=== PATIENT | female | born 1960 | race Caucasian/White ===

== ENCOUNTER → 2017-05-10 15:05 | Outpatient (CLI) | payer BC ==
[2015-06-24 18:44] VITALS: BMI 26.6
[~2017-05-10 15:05] MED LIST: BACTRIM DS TABL1 TAB PO; EXCEDRIN EXTRA1 TAB PO; HCTZ25 MG PO; MULTIPLE VITAMI1 TA1 PO; PREMARIN0.625 MG PO
== END | disposition home or self-care (01) ==
LOC: D.MAMMO 11:15
DX: Z12.31 Encounter for screening mammogram for malignant neoplasm of breast (principal)

== ENCOUNTER → 2017-05-27 16:39 | Outpatient (CLI) | payer BC ==
[2015-06-24 18:44] VITALS: BMI 26.6
== END | disposition home or self-care (01) ==
LOC: D.MAMMO 10:00
DX: R92.8 Other abnormal and inconclusive findings on diagnostic imaging of breast (principal)

== ENCOUNTER 2017-11-04 07:30 | Day surgery (SDC) | payer BC ==
[~2017-11-04] VITALS: Ht 162.6 cm; Wt 96.6 kg
--- NOTE | ~2017-11-04 | OP ---
PATIENT NAME: MADHURI MARLEY MEDICAL RECORD: [id number] :56 LOCATION:D.OPS ADMISSION DATE: SURGEON: EDUARDO DUKES MD DATE OF OPERATION: 11/04/2017 PREOPERATIVE DIAGNOSIS: T5 compression fracture secondary to tumor and T5 epidural mass. PROCEDURE: T5 laminectomy for resection of epidural tumor and mass and T5 kyphoplasty. SURGEON: Eduardo Dukes MD PLACE OF SERVICE: [facility]. DESCRIPTION OF TECHNIQUE: After induction of general endotracheal anesthesia, the patient was rolled prone on chest and hip rolls. The thoracic spine was prepped and draped in usual sterile fashion. Fluoroscopic x-ray and spinal needle localized the T5 vertebral body. Next, a skin incision was carried out from the spinous process of T5 to T6, spinous processes and lamina of T5 were exposed in subperiosteal manner on the left side. Flow was confirmed with fluoroscopic x-ray. A Midas Manfred drill was used to perform a laminectomy at the T5 on the left. Portions of pedicle were also removed and then there was obvious epidural mass sent to pathology for diagnosis. This was removed in a piecemeal fashion. The vertebral body was entered and the bone was quite soft and obviously pathologic. Multiple specimens were sent to pathology for diagnosis and spinal canal was decompressed in performance of this, a Jamshidi needle was advanced in the body of T5. A balloon was inflated under fluoroscopic control. The balloon was deflated and the void created was back filled with methyl methacrylate bone cement. Good position of the cement was confirmed by AP and lateral fluoroscopic x-ray. Meticulous hemostasis was maintained throughout the wound. The wound was irrigated with copious amounts of Ancef irrigant solution. The fascia was closed with 2-0 Vicryl suture, the subdermal layer was closed with 3-0 Vicryl suture. The skin was closed with jo-ann. A sterile dressing was applied to the wound. The patient was awakened in good condition and taken to recovery. All counts were reported as correct. Estimated blood loss was minimal. TRANSINT:[id number] Voice Confirmation ID: [id number] DOCUMENT ID: [id number] EDUARDO DUKES MD at 0832 CC: [id number] DICTATION DATE: 11/04/17 3449 DIRECTOR EDUCATIONAL RADIO: 11/04/17 1409 [facility] 11/05/17 [facility] [address] [place] [address]
[~2017-11-04 07:30] MED LIST changes: +ADIPEX-P37.5 MG PO; +ARMOUR THYROID30 MG PO; +BUTALB-APAP-CA1 EACH PO; +EFFEXOR XR150 MG PO; +MAG-OX 400 MG400 MG PO; +MAG-OXIDE400 MG PO; +MICARDIS HCT 401 TAB PO
[2017-11-04] MEDS ORDERED: TYLENOL #4 W/CO1 TAB PO (08:08)
[2017-11-04 08:10] VITALS: BP 128/78; Ht 162.6 cm; Wt 96.6 kg
[2017-11-04 08:11] LABS: HEMATOCRIT 41.7 % (36.0-48.0); HEMOGLOBIN 13.7 g/dL (12-16); MCH 29.1 pg (26.0-34.0); MCHC 32.9 g/dL (31.0-37.0); MCV 88.5 fL (80.0-100.0); RBC 4.71 10x6/uL (4.00-5.40); RDW 14.7 % (11.5-14.5); WBC 10.8 10x3/uL (4.8-10.8)
[2017-11-04 23:02] VITALS: BP 120/72
[2017-11-05 04:32] VITALS: BP 94/55
[2017-11-05 10:51] VITALS: BP 117/69
[2017-11-05 15:10] VITALS: BP 127/62
[2017-12-02] MEDS ORDERED: ZANAFLEX4 MG PO (13:59)
== END 2017-11-05 15:13 | disposition home or self-care (01) ==
LOC: OBSVTIME → D.SDCHOLD 07:30 → D.OPS 07:30 → D.SDCHOLD 07:30 → D.MS 07:30 → OBSVTIME 07:30 → EDSTATUS 09:00 → D.SDCHOLD 09:00 → D.MS 17:44 → D.SDCHOLD 17:44 → D.OPS 11-05 15:13 → D.MS 11-05 15:13
PROVIDERS: Anesthesiology
DX: M84.68XA Pathological fracture in other disease, other site, initial encounter for fracture (principal); D49.2 Neoplasm of unspecified behavior of bone, soft tissue, and skin

== ENCOUNTER → 2017-11-17 16:39 | Outpatient (CLI) | payer BC ==
[2017-11-04 08:10] VITALS: BMI 36.6
[~2017-11-17 16:39] MED LIST changes: +ATIVAN1 MG PO; +NEURONTIN800 MG PO; +NORCO 7.5/325 T1 TA1 PO; +TYLENOL #4 W/CO1 TAB PO; +ZANAFLEX4 MG PO
[2017-11-17 17:27] LABS: CREATININE - SERUM 1.1 mg/dL (0.6-1.3)
== END | disposition home or self-care (01) ==
LOC: D.CT 16:30
PROVIDERS: Urology
DX: C64.9 Malignant neoplasm of unspecified kidney, except renal pelvis (principal)

== ENCOUNTER → 2017-11-18 11:33 | Outpatient (CLI) | payer MEDICAID ==
[2017-11-04 08:10] VITALS: BMI 36.6
[2017-11-18 12:27] LABS: BILIRUBIN - DIRECT 0.07 mg/dL (0.00-0.30); BILIRUBIN - INDIRECT 0.14 mg/dL (0.00-1.00); BILIRUBIN - TOTAL 0.21 mg/dL (0.2-1.3); PROTEIN - SERUM 7.1 g/dL (6.4-8.2)
== END | disposition home or self-care (01) ==
LOC: D.LAB 11:33
PROVIDERS: Urology
DX: C64.9 Malignant neoplasm of unspecified kidney, except renal pelvis (principal)

== ENCOUNTER 2017-11-22 22:32 | Emergency (ER) | payer MEDICAID ==
[2017-11-04 08:10] VITALS: BMI 36.6
[~2017-11-22 22:32] MED LIST changes: -ATIVAN1 MG PO; -NEURONTIN800 MG PO; -NORCO 7.5/325 T1 TA1 PO; -ZANAFLEX4 MG PO
[2017-12-02] MEDS ORDERED: ZANAFLEX4 MG PO (13:59)
== END 2017-11-23 00:51 | disposition home or self-care (01) ==
LOC: D.ER 22:32
DX: M62.838 Other muscle spasm (principal); G89.18 Other acute postprocedural pain; I10 Essential (primary) hypertension

== ENCOUNTER 2017-12-05 05:35 | Inpatient (IN) | payer MEDICAID ==
[2017-12-02 14:49] LABS: BASOPHILS 0.3 % (0-2); EOSINOPHILS 3.3 % (0-7); HEMATOCRIT 35.2 % (36.0-48.0); HEMOGLOBIN 11.4 g/dL (12-16); IMMATURE GRANULOCYTES 0.2 % (0-5); LYMPHOCYTES 29.1 % (15-50); MCH 28.4 pg (26.0-34.0); MCHC 32.4 g/dL (31.0-37.0); MCV 87.8 fL (80.0-100.0); MONOCYTES 4.8 % (2-11); NEUTROPHILS 62.3 % (40-80); PLATELET COUNT 261 10x3/uL (130-400); RBC 4.01 10x6/uL (4.00-5.40); RDW 14.9 % (11.5-14.5); WBC 6.4 10x3/uL (4.8-10.8)
[2017-12-02 15:11] LABS: ANION GAP 13.7 mmol/L (8-16); CALCIUM 8.6 mg/dL (8.5-10.1); CARBON DIOXIDE 29.7 mmol/L (21.0-32.0); CREATININE - SERUM 1.1 mg/dL (0.6-1.3); POTASSIUM - SERUM 3.4 mmol/L (3.5-5.1)
[2017-12-02 15:27] LABS: APTT 38.3 SECONDS (22.8-39.4); INR 1.02 (0.85-1.17)
[~2017-12-05] VITALS: Ht 162.6 cm; Wt 101.6 kg
[2017-12-05] VITALS (13 sets, daily range): BP systolic 125–184; BP diastolic 54–112; BMI 38.3
--- NOTE | ~2017-12-05 | OP ---
PATIENT NAME: MADHURI MARLEY MEDICAL RECORD: [id number] :56 LOCATION:[facility] D.2310 ADMISSION DATE:12/05/17 SURGEON: CYNTHIA MCCALL MD DATE OF OPERATION: 12/05/2017 CO-SURGEONS: Dr. Cynthia Mccall and Dr. Cynthia Coburn. ANESTHESIA: General anesthesia by Dr. Grant Quan. PREOPERATIVE DIAGNOSIS: Right renal cancer 7 cm, stage T2a Nx M1 (stage IV). PROCEDURES: Laparoscopic hand-assisted right radical nephrectomy. SPECIMENS: Right kidney, adrenal and ureter. FINDINGS: Large right renal medial tumor, which displaced the inferior vena cava towards the opposite side and it was also adherent to the duodenum. BLOOD LOSS: 30 mL. CLINICAL HISTORY: This is a 57-year-old female, who is a smoker. She was initially seen by Dr. Dukes for a compression fracture at the T5 spinal level. 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 She was then referred to see me. I performed imaging on her and immediately we noted a large 7.3 cm right renal mass, which is medial and extends from the mid pole to lower pole. The mass displaces the inferior vena cava towards the opposite side. It also pushes the renal vein towards the cranial aspect of the kidney. No thrombus was seen in the renal vein or IVC. Liver function tests were normal. No particular lymphadenopathy was seen. She had a bone scan and the rest of the CT imaging did not show any other tumor nodules. Dr. Bernardo informs me that a PET scan showed only the lesions of the T5 spine, and the right kidney. Therefore, she may have renal cell carcinoma with a solitary metastasis. The life expectancy in that situation is actually better than with a widespread stage IV metastatic renal cell carcinoma. Life expectancy of stage IV renal cell carcinoma with multifocal metastasis is about 8% at 5 years. With resection of a primary and a solitary metastasis, the 5-year survival rate rises up towards 25%. The patient had a bowel prep the evening before. Due to the difficulty of the surgery, co-surgeons will be performing the surgery. The patient is allergic to PENICILLIN and she was given Levaquin 500 mg IV personal protection specialist to the OR. DESCRIPTION OF PROCEDURE: The patient was given induction of general anesthesia in supine position. A Dunne catheter was put to bag drainage. She was then turned towards the right lateral decubitus position with the right side up. She was maintained in this position on a beanbag. We made sure that all pressure points were well padded. A Robertson-type incision was marked out in the right lower quadrant of the abdomen at 7.5 cm in length. We made sure that the Gelport hand port would clear the iliac crest. A skin incision was then made and then the muscle splitting incision through the external oblique, internal oblique, and transversus abdominis was performed. We did not enter into the rectus muscle at all. Having gone into the peritoneum, we put the Gelport hand port device in. A 12-mm trocar was then placed through the Gelport and OPERATIVE REPORT [id number] MADHURI MARLEY insufflation of the pneumoperitoneum was performed using carbon dioxide. We placed a camera port, which is 12 mm just under the xiphoid process. Between the umbilicus and the camera port, we placed our working port, which was also 12-mm port. The patient had no adhesions to deal with. Using the Harmonic scalpel, we took down the lateral peritoneum along the line of Toldt. We then dissected some of the area between the cranial portion of the kidney and the undersurface of the liver. Here we had to put a Miller liver retractor through a separate incision just inferior to the costal margin on the lateral side of the patient's abdomen. This was used to retract the liver, so that we can get into the plane between the liver and the kidney. Moving medially, we identified the gallbladder. The peritoneum of the gallbladder was freed up from where it attached towards the kidney. Here, we then identified the duodenum and the inferior vena cava. The tumor actually overhangs the anterior surface of the inferior vena cava as well as the anterior surface of the duodenum. We had to retract the tumor laterally in order to get underneath it and then dissection was performed to free the duodenum away from the tumor and to kocherize the duodenum. The attachments to the inferior vena cava were also dissected with Metzenbaum scissors. Now heading from lateral towards medially, I dissected in the plane posterior to the kidney at its cranial surface and we identified the fat here, which was attaching the superior surface of the kidney to the undersurface of the duodenum. This was dissected bluntly using the fingers. We came across the adrenal gland medially. We used the Harmonic scalpel to free some of the superior surface of the adrenal gland. We identified also the adrenal vein going into the inferior vena cava. By continuing to dissect bluntly through from lateral to medial through the superior surface of the kidney, we made a continuous plane from the medial surface of the adrenal gland all the way to the lateral edge of the tissue. Here we were able to put an Endo-FELIPA 60 mm with a vascular load. By firing the vascular load, we completely freed the superior surface of the kidney. The adrenal gland continues to be part of the specimen. The adrenal vein was clipped multiple times, and then divided between clips using the Metzenbaum scissors. Going down to the lower pole, we identified the ureter. This was clipped multiple times and then the ureter was divided using Metzenbaum scissors. This left only the medial surface of the kidney attached to the inferior vena cava. Metzenbaum scissors were also used to divide the filmy adhesions between the inferior vena cava and the renal hilum. Finally, we had a clear shot through the medial surface of the kidney for the renal pedicle. The Endo-FELIPA 60 was placed with a vascular load and the renal pedicle was completely taken down. This freed the kidney specimen entirely. The Gelport hand port was uncovered by removing the hand port portion off leaving the ring in place. We were then able to completely remove the kidney and sent it to pathology in formalin. We then irrigated out the abdomen using normal saline. The irrigation fluid was drained out using a pool sucker. Putting the GelPort hand port back on and reestablishing pneumoperitoneum, we placed a sheet of Surgicel over the renal hilum stump. No bleeding was seen at all. The Gelport hand port device was then completely removed as well as the trocars. Closure of the muscle splitting incision was performed using looped PDS in 2 layers. The first layer took the transversus abdominis and the internal oblique. The second layer took the external oblique. Latia were used to close all of the skin incisions. Dressings were applied and the patient was then brought to the recovery room. She will be held in the intensive care unit for overnight and if she is stable, we will transfer her to the floor tomorrow. OPERATIVE REPORT [id number] MARLEYMADHURI SIMPSON TRANSINT:[id number] Voice Confirmation ID: [id number] DOCUMENT ID: [id number] CYNTHIA MCCALL MD at 1723 CC: [id number] DICTATION DATE: 12/05/17 1153 HYDRAULIC MECHANIC: 12/05/17 1437 ADM IN [place] [id number] [place] [id number]
--- NOTE | ~2017-12-05 | OP ---
PATIENT NAME: MADHURI MARELY MEDICAL RECORD: [id number] :56 LOCATION:D.MS [facility] ADMISSION DATE:12/05/17 SURGEON: CYNTHIA VARGAS MD DATE OF OPERATION: 12/05/2017 This is a cosurgeon case. Please see Dr. James's note. This was a radical nephrectomy. He was the urologist. I was the general surgeon. Due to the complexity of the case, 2 attending surgeons were necessary to participate in the case. My involvement in the case included the initial skin incision, assistance with dissection down to the external oblique aponeurosis, incision of the external oblique aponeurosis, separation of the muscle fibers, and then separation of the internal oblique and transversus abdominis muscle layers. Insertion of the Papo retractor. I ran the camera some of the time. I incised along the right white line of Toldt. I folded the right colon medially. I kocherized the duodenum. I inserted the liver retractor. I incised the retroperitoneal reflection over the inferior vena cava. I fired the stapler several times over the vascular structures. I assisted with removal of the specimen. I irrigated and aspirated. I assisted with closure of the fascia with a running #1 PDS suture. I assisted with staple closure of the skin. TRANSINT:[id number] Voice Confirmation ID: [id number] DOCUMENT ID: [id number] CYNTHIA VARGAS MD at 1518 CC: [id number] DICTATION DATE: 12/05/17 1151 RETAIL RESET MERCHANDISER: 12/05/17 1322 DIS IN 12/08/17 [place] [id number] [place] [address]
[~2017-12-05 05:35] MED LIST changes: +ZANAFLEX4 MG PO
[2017-12-06] VITALS (17 sets, daily range): BP systolic 101–156; BP diastolic 65–88; Ht 162.6 cm; Wt 101.6 kg
[2017-12-06 10:45] LABS: ALBUMIN 2.7 g/dL (3.4-5.0); BILIRUBIN - TOTAL 0.54 mg/dL (0.2-1.3); CALCIUM 8.5 mg/dL (8.5-10.1); CARBON DIOXIDE 24.8 mmol/L (21.0-32.0); CREATININE - SERUM 1.4 mg/dL (0.6-1.3); POTASSIUM - SERUM 3.8 mmol/L (3.5-5.1); PROTEIN - SERUM 6.1 g/dL (6.4-8.2)
[2017-12-06 10:59] LABS: BASOPHILS 0.2 % (0-2); EOSINOPHILS 0.2 % (0-7); HEMATOCRIT 33.1 % (36.0-48.0); HEMOGLOBIN 10.6 g/dL (12-16); IMMATURE GRANULOCYTES 0.3 % (0-5); LYMPHOCYTES 18.5 % (15-50); MCH 27.8 pg (26.0-34.0); MCV 86.9 fL (80.0-100.0); MEAN PLATELET VOLUME 8.4 fL (7.4-10.4); MONOCYTES 8.7 % (2-11); NEUTROPHILS 72.1 % (40-80); PLATELET COUNT 256 10x3/uL (130-400); RBC 3.81 10x6/uL (4.00-5.40); RDW 15.3 % (11.5-14.5); WBC 11.9 10x3/uL (4.8-10.8)
[2017-12-07 04:25] VITALS: BP 142/85
[2017-12-07 08:39] VITALS: BP 150/75
[2017-12-07 09:15] LABS: ALBUMIN 2.6 g/dL (3.4-5.0); ANION GAP 13.3 mmol/L (8-16); BILIRUBIN - TOTAL 0.56 mg/dL (0.2-1.3); CALCIUM 8.4 mg/dL (8.5-10.1); CARBON DIOXIDE 26.3 mmol/L (21.0-32.0); CREATININE - SERUM 1.3 mg/dL (0.6-1.3); POTASSIUM - SERUM 3.6 mmol/L (3.5-5.1); PROTEIN - SERUM 6.6 g/dL (6.4-8.2)
[2017-12-07 12:45] VITALS: BP 140/80
[2017-12-07 17:11] VITALS: BP 142/85
[2017-12-07 20:00] VITALS: BP 158/88
[2017-12-08] VITALS: BP 157/87
[2017-12-08 04:00] VITALS: BP 144/84
[2017-12-08 09:01] LABS: ALBUMIN 2.8 g/dL (3.4-5.0); ANION GAP 13.6 mmol/L (8-16); BILIRUBIN - TOTAL 0.58 mg/dL (0.2-1.3); CALCIUM 8.9 mg/dL (8.5-10.1); CARBON DIOXIDE 27.1 mmol/L (21.0-32.0); CREATININE - SERUM 1.2 mg/dL (0.6-1.3); POTASSIUM - SERUM 3.7 mmol/L (3.5-5.1); PROTEIN - SERUM 6.9 g/dL (6.4-8.2)
[2017-12-08 09:11] VITALS: BP 146/80
[2017-12-08] MEDS ORDERED: NORCO 7.5/325 T1 TA1 PO (09:35)
[2017-12-08 13:21] VITALS: BP 152/76
[2017-12-08 18:38] VITALS: BP 161/92
== END 2017-12-08 18:30 | disposition home or self-care (01) | DRG 657 ==
LOC: D.ICU 05:35 → D.MS 05:35 → D.SDCHOLD 05:35 → D.ICU 12:34 → D.MS 12-06 22:15
PROVIDERS: Anesthesiology; Internal Medicine Hematology & Oncology; Urology
PROC: 0TT04ZZ Resection of Right Kidney, Percutaneous Endoscopic Approach (ICD-10-PCS; principal; 2017-12-05 07:30)
DX: C64.1 Malignant neoplasm of right kidney, except renal pelvis (principal); C79.51 Secondary malignant neoplasm of bone; I10 Essential (primary) hypertension; F17.200 Nicotine dependence, unspecified, uncomplicated

== ENCOUNTER 2017-12-13 12:24 | Inpatient (IN) | payer MEDICAID ==
[~2017-12-13] VITALS: Ht 162.6 cm; Wt 105.9 kg
--- NOTE | ~2017-12-13 | OP ---
PATIENT NAME: MADHURI MARLEY MEDICAL RECORD: [id number] :56 LOCATION:[facility] D.2313 ADMISSION DATE:12/13/17 SURGEON: BERTIN MCCALL MD DATE OF OPERATION: 12/16/2017 SURGEON: Bertin Mccall MD ANESTHESIA: General anesthesia by Rossy Herr CRNA. PROCEDURE: Evacuation of wound hematoma, placement of a wound VAC. SPECIMENS: Culture swabs, Gram stain, aerobic and anaerobic. PREOPERATIVE DIAGNOSIS: Wound hematoma. FINDINGS: Fascia is intact. Hematoma and subcutaneous wound cavity. ESTIMATED BLOOD LOSS: None. CLINICAL HISTORY: This is a 57-year-old female with metastatic renal cell carcinoma, she was found to have a compression fracture of the T5 vertebral body. Dr. Dukes performed compression stabilization. Specimens from the bone marrow showed renal cell carcinoma. She then had imaging, which showed a very large right renal cell carcinoma. Recently, she had a right radical nephrectomy via hand-assisted laparoscopic approach. A few days afterwards, she came to the Emergency Room with acute paraplegia. Imaging shows soft tissue masses at the T5 level compressing the spinal cord. DESCRIPTION OF PROCEDURE: Today, she had a T5 corpectomy. While she was being turned, it was noted that at the hand port site she had a lot of serous fluid draining. Therefore, I waited until the corpectomy surgery was finished and then I would examine her hand port site incision to check for fascial dehiscence. Dr. Dukes has finished his procedure. The patient was then maintained under general anesthetic. She already had IV antibiotics given to her. She was turned into the supine position from her prone position. The wound was prepped and draped. I noted that she has candidal yeast infections in the groins and this may have contributed to the hand site infection. The wound itself appeared to be clean. There was serous fluid seeping out of the wound. When she was prepped and draped, we opened up the incision. Granulating tissue was seen along the bales of the subcutaneous tissue. We obtained culture swabs. A large hematoma was evacuated using the Yankauer sucker. We then irrigated out the wound and then found an intact fascial closure. The wound cavity was measured out at 12 x 5 cm. A silver sponge was cut to the size for the wound VAC. It was inserted into the wound. Dressings were then applied and then the wound VAC was set to 125 mmHg continuous suction. The patient will be on it going into the intensive care unit. I will have the wound care team manage the wound VAC. TRANSINT:[id number] Voice Confirmation ID: [id number] DOCUMENT ID: [id number] OPERATIVE REPORT [id number] MADHURI MARLEY ROBERT S MD at 1725 CC: [id number] DICTATION DATE: 12/16/17 1613 INVESTMENT ADVISOR: 12/16/17 1650 ADM IN [place] [id number] [place] [address]
[~2017-12-13 12:24] MED LIST changes: +NORCO 7.5/325 T1 TA1 PO
[2017-12-13 13:11] LABS: BASOPHILS 0.1 % (0-2); EOSINOPHILS 0.1 % (0-7); HEMATOCRIT 35.5 % (36.0-48.0); HEMOGLOBIN 11.7 g/dL (12-16); IMMATURE GRANULOCYTES 1.1 % (0-5); LYMPHOCYTES 22.7 % (15-50); MCH 28.3 pg (26.0-34.0); MEAN PLATELET VOLUME 8.7 fL (7.4-10.4); MONOCYTES 6.8 % (2-11); NEUTROPHILS 69.2 % (40-80); RBC 4.13 10x6/uL (4.00-5.40); RDW 14.6 % (11.5-14.5); WBC 18.3 10x3/uL (4.8-10.8)
[2017-12-13 13:12] LABS: PLATELET COUNT 415 10x3/uL (130-400)
[2017-12-13 13:36] LABS: ALBUMIN 3.2 g/dL (3.4-5.0); ANION GAP 10.3 mmol/L (8-16); BILIRUBIN - TOTAL 0.3 mg/dL (0.2-1.3); CALCIUM 9.1 mg/dL (8.5-10.1); CARBON DIOXIDE 29.4 mmol/L (21.0-32.0); CREATININE - SERUM 1.2 mg/dL (0.6-1.3); POTASSIUM - SERUM 3.7 mmol/L (3.5-5.1); PROTEIN - SERUM 7.4 g/dL (6.4-8.2)
[2017-12-13 20:44] VITALS: BP 142/86
[2017-12-14] VITALS (7 sets, daily range): BP systolic 92–156; BP diastolic 60–92; BMI 35.9
[2017-12-14] MEDS ORDERED: ATIVAN1 MG PO (05:51)
[2017-12-14] MEDS ORDERED: NEURONTIN800 MG PO (05:52)
[2017-12-14 06:24] LABS: BASOPHILS 0.1 % (0-2); EOSINOPHILS 0 % (0-7); HEMATOCRIT 36.2 % (36.0-48.0); HEMOGLOBIN 11.9 g/dL (12-16); IMMATURE GRANULOCYTES 1.1 % (0-5); LYMPHOCYTES 17.4 % (15-50); MCH 27.8 pg (26.0-34.0); MCHC 32.9 g/dL (31.0-37.0); MCV 84.6 fL (80.0-100.0); MEAN PLATELET VOLUME 8.6 fL (7.4-10.4); MONOCYTES 6.5 % (2-11); NEUTROPHILS 74.9 % (40-80); PLATELET COUNT 415 10x3/uL (130-400); RBC 4.28 10x6/uL (4.00-5.40); RDW 14.8 % (11.5-14.5); WBC 16.6 10x3/uL (4.8-10.8)
[2017-12-14 06:48] LABS: BILIRUBIN - TOTAL 0.27 mg/dL (0.2-1.3); CARBON DIOXIDE 29.1 mmol/L (21.0-32.0); CREATININE - SERUM 1.3 mg/dL (0.6-1.3); PROTEIN - SERUM 7.1 g/dL (6.4-8.2)
[2017-12-14 06:49] LABS: ANION GAP 12.4 mmol/L (8-16); POTASSIUM - SERUM 4.5 mmol/L (3.5-5.1)
[2017-12-14 08:38] LABS: APPEARANCE CLEAR (CLEAR); BACTERIA MODERATE /hpf (NONE SEEN); BILIRUBIN NEGATIVE (NEGATIVE); COLOR YELLOW (YELLOW); EPITHELIAL CELLS 0-5 /hpf (0-5); GLUCOSE 50 mg/dL (NEGATIVE); KETONE NEGATIVE (NEGATIVE); MUCUS <1+ /lpf (NONE SEEN); NITRITE NEGATIVE (NEGATIVE); PROTEIN TRACE mg/dL (NEGATIVE); RED CELLS - URINE 0-5 /hpf (0-5); SPECIFIC GRAVITY 1.015 (1.005-1.020); UROBILINOGEN NORMAL (NORMAL); WHITE CELLS - URINE RARE /hpf (0-5)
[2017-12-14 15:55] LABS: CKMB 0.2 U/L (0.0-3.6); CREATINE KINASE 13 UL (21-215)
[2017-12-14 15:56] LABS: TROPONIN-I < 0.017 ng/mL (0.000-0.060)
[2017-12-14 20:29] LABS: CKMB 0.1 U/L (0.0-3.6); CREATINE KINASE 16 UL (21-215)
[2017-12-14 20:40] LABS: TROPONIN-I < 0.017 ng/mL (0.000-0.060)
[2017-12-15] VITALS (7 sets, daily range): BP systolic 91–120; BP diastolic 49–73
[2017-12-15 02:14] LABS: CKMB 0.1 U/L (0.0-3.6); CREATINE KINASE 23 UL (21-215); TROPONIN-I 0.018 ng/mL (0.000-0.060)
[2017-12-15 06:57] LABS: BASOPHILS 0.1 % (0-2); EOSINOPHILS 0.5 % (0-7); HEMATOCRIT 35.5 % (36.0-48.0); HEMOGLOBIN 11.4 g/dL (12-16); IMMATURE GRANULOCYTES 2.2 % (0-5); LYMPHOCYTES 20.8 % (15-50); MCH 27.7 pg (26.0-34.0); MCHC 32.1 g/dL (31.0-37.0); MCV 86.4 fL (80.0-100.0); MEAN PLATELET VOLUME 8.7 fL (7.4-10.4); MONOCYTES 7.2 % (2-11); NEUTROPHILS 69.2 % (40-80); PLATELET COUNT 353 10x3/uL (130-400); RBC 4.11 10x6/uL (4.00-5.40); WBC 19.4 10x3/uL (4.8-10.8)
[2017-12-15 07:26] LABS: ALBUMIN 2.6 g/dL (3.4-5.0); ANION GAP 13.7 mmol/L (8-16); BILIRUBIN - TOTAL 0.28 mg/dL (0.2-1.3); CALCIUM 8.5 mg/dL (8.5-10.1); CARBON DIOXIDE 28.1 mmol/L (21.0-32.0); CREATININE - SERUM 1.6 mg/dL (0.6-1.3); MAGNESIUM - SERUM 2.2 mg/dL (1.8-2.4); PHOSPHOROUS 3.7 mg/dL (2.5-4.9); POTASSIUM - SERUM 3.8 mmol/L (3.5-5.1); PROTEIN - SERUM 6.4 g/dL (6.4-8.2); T4 THYROXIN - FREE 1.15 ng/dL (0.76-1.46); THYROID STIMULATING HORMONE 0.66 uIU/mL (0.36-3.74)
[2017-12-16] VITALS (18 sets, daily range): BP systolic 98–154; BP diastolic 60–88; BMI 37.6
[2017-12-16 04:36] LABS: BASOPHILS 0.2 % (0-2); EOSINOPHILS 1.6 % (0-7); HEMOGLOBIN 10.9 g/dL (12-16); IMMATURE GRANULOCYTES 2.1 % (0-5); LYMPHOCYTES 25.2 % (15-50); MCH 27.8 pg (26.0-34.0); MCHC 32.1 g/dL (31.0-37.0); MCV 86.7 fL (80.0-100.0); MEAN PLATELET VOLUME 8.8 fL (7.4-10.4); MONOCYTES 8.9 % (2-11); PLATELET COUNT 366 10x3/uL (130-400); RBC 3.92 10x6/uL (4.00-5.40); RDW 15.1 % (11.5-14.5); WBC 18.6 10x3/uL (4.8-10.8)
[2017-12-16 06:03] LABS: ALBUMIN 2.5 g/dL (3.4-5.0); ANION GAP 11.3 mmol/L (8-16); BILIRUBIN - TOTAL 0.3 mg/dL (0.2-1.3); CALCIUM 8.5 mg/dL (8.5-10.1); CARBON DIOXIDE 26.8 mmol/L (21.0-32.0); CREATININE - SERUM 1.3 mg/dL (0.6-1.3); POTASSIUM - SERUM 4.1 mmol/L (3.5-5.1); PROTEIN - SERUM 6.2 g/dL (6.4-8.2)
[2017-12-16 17:43] LABS: HEMOGLOBIN 10.8 g/dL (12-16); MCH 28.8 pg (26.0-34.0); MCHC 33.8 g/dL (31.0-37.0); MCV 85.3 fL (80.0-100.0); MEAN PLATELET VOLUME 8.8 fL (7.4-10.4); PLATELET COUNT 338 10x3/uL (130-400); RBC 3.75 10x6/uL (4.00-5.40); RDW 14.8 % (11.5-14.5); WBC 25.2 10x3/uL (4.8-10.8)
[2017-12-16 18:16] LABS: EOSINOPHILS 1 % (0-7); LYMPHOCYTES 3 % (15-50); MONOCYTES 3 % (2-11); NEUTROPHILS 93 % (40-80); PLATELET ESTIMATE NORMAL
[2017-12-17] VITALS (23 sets, daily range): BP systolic 98–158; BP diastolic 55–92; Ht 162.6 cm; Wt 105.9 kg
[2017-12-17 05:54] LABS: BASOPHILS 0 % (0-2); EOSINOPHILS 0 % (0-7); HEMOGLOBIN 10.6 g/dL (12-16); IMMATURE GRANULOCYTES 0.7 % (0-5); LYMPHOCYTES 6.5 % (15-50); MCHC 34.2 g/dL (31.0-37.0); MCV 84.7 fL (80.0-100.0); MEAN PLATELET VOLUME 8.9 fL (7.4-10.4); MONOCYTES 6.3 % (2-11); NEUTROPHILS 86.5 % (40-80); PLATELET COUNT 305 10x3/uL (130-400); RBC 3.66 10x6/uL (4.00-5.40); RDW 15.1 % (11.5-14.5)
[2017-12-17 06:00] LABS: INR 1.11 (0.85-1.17); PROTIME 13.9 SECONDS (11.6-15.0)
[2017-12-17 06:07] LABS: ALBUMIN 2.4 g/dL (3.4-5.0); ANION GAP 13.1 mmol/L (8-16); BILIRUBIN - TOTAL 0.32 mg/dL (0.2-1.3); CALCIUM 8.3 mg/dL (8.5-10.1); CARBON DIOXIDE 26.4 mmol/L (21.0-32.0); CREATININE - SERUM 1.2 mg/dL (0.6-1.3); MAGNESIUM - SERUM 2.3 mg/dL (1.8-2.4); POTASSIUM - SERUM 4.5 mmol/L (3.5-5.1); PROTEIN - SERUM 5.8 g/dL (6.4-8.2)
[2017-12-18] VITALS (24 sets, daily range): BP systolic 84–130; BP diastolic 51–81
[2017-12-18 04:01] LABS: BASOPHILS 0 % (0-2); EOSINOPHILS 0 % (0-7); HEMATOCRIT 29.2 % (36.0-48.0); HEMOGLOBIN 9.6 g/dL (12-16); IMMATURE GRANULOCYTES 0.8 % (0-5); MCH 28.7 pg (26.0-34.0); MCHC 32.9 g/dL (31.0-37.0); MCV 87.2 fL (80.0-100.0); NEUTROPHILS 88.2 % (40-80); PLATELET COUNT 303 10x3/uL (130-400); RBC 3.35 10x6/uL (4.00-5.40); RDW 15.2 % (11.5-14.5); WBC 26.5 10x3/uL (4.8-10.8)
[2017-12-18 04:17] LABS: ALBUMIN 2.3 g/dL (3.4-5.0); ANION GAP 11.7 mmol/L (8-16); BILIRUBIN - TOTAL 0.35 mg/dL (0.2-1.3); CALCIUM 8.7 mg/dL (8.5-10.1); CREATININE - SERUM 1.2 mg/dL (0.6-1.3); POTASSIUM - SERUM 4.7 mmol/L (3.5-5.1); PROTEIN - SERUM 5.9 g/dL (6.4-8.2)
[2017-12-19] VITALS (23 sets, daily range): BP systolic 29–139; BP diastolic 49–87
[2017-12-19 03:45] LABS: BASOPHILS 0 % (0-2); EOSINOPHILS 0 % (0-7); HEMATOCRIT 25.5 % (36.0-48.0); HEMOGLOBIN 8.4 g/dL (12-16); IMMATURE GRANULOCYTES 1.1 % (0-5); LYMPHOCYTES 6.4 % (15-50); MCH 29.3 pg (26.0-34.0); MCHC 32.9 g/dL (31.0-37.0); MCV 88.9 fL (80.0-100.0); MEAN PLATELET VOLUME 8.8 fL (7.4-10.4); MONOCYTES 7.5 % (2-11); PLATELET COUNT 309 10x3/uL (130-400); RBC 2.87 10x6/uL (4.00-5.40); RDW 15.2 % (11.5-14.5); WBC 22.7 10x3/uL (4.8-10.8)
[2017-12-19 03:56] LABS: ANION GAP 9.4 mmol/L (8-16); CALCIUM 8.2 mg/dL (8.5-10.1); CARBON DIOXIDE 27.1 mmol/L (21.0-32.0); CREATININE - SERUM 0.9 mg/dL (0.6-1.3); POTASSIUM - SERUM 4.5 mmol/L (3.5-5.1)
[2017-12-20] VITALS (24 sets, daily range): BP systolic 98–138; BP diastolic 58–88
[2017-12-20 09:19] LABS: BASOPHILS 0 % (0-2); EOSINOPHILS 0.1 % (0-7); HEMOGLOBIN 8.8 g/dL (12-16); IMMATURE GRANULOCYTES 1.5 % (0-5); LYMPHOCYTES 9.7 % (15-50); MCH 28.3 pg (26.0-34.0); MCHC 31.4 g/dL (31.0-37.0); MEAN PLATELET VOLUME 8.6 fL (7.4-10.4); MONOCYTES 7.1 % (2-11); NEUTROPHILS 81.6 % (40-80); PLATELET COUNT 360 10x3/uL (130-400); RBC 3.11 10x6/uL (4.00-5.40); RDW 14.9 % (11.5-14.5); WBC 21.3 10x3/uL (4.8-10.8)
[2017-12-20 09:20] LABS: ANION GAP 14.9 mmol/L (8-16); CALCIUM 8.4 mg/dL (8.5-10.1); CARBON DIOXIDE 25.5 mmol/L (21.0-32.0); POTASSIUM - SERUM 4.4 mmol/L (3.5-5.1)
[2017-12-21] VITALS (24 sets, daily range): BP systolic 104–133; BP diastolic 62–90
[2017-12-21 05:04] LABS: BASOPHILS 0.1 % (0-2); EOSINOPHILS 0.5 % (0-7); HEMATOCRIT 28.8 % (36.0-48.0); HEMOGLOBIN 9.1 g/dL (12-16); IMMATURE GRANULOCYTES 2.2 % (0-5); LYMPHOCYTES 11.1 % (15-50); MCH 28.8 pg (26.0-34.0); MCHC 31.6 g/dL (31.0-37.0); MCV 91.1 fL (80.0-100.0); MEAN PLATELET VOLUME 8.7 fL (7.4-10.4); MONOCYTES 6.9 % (2-11); NEUTROPHILS 79.2 % (40-80); PLATELET COUNT 408 10x3/uL (130-400); RBC 3.16 10x6/uL (4.00-5.40); WBC 19.2 10x3/uL (4.8-10.8)
[2017-12-21 05:14] LABS: ALBUMIN 2.3 g/dL (3.4-5.0); ANION GAP 9.3 mmol/L (8-16); BILIRUBIN - TOTAL 0.2 mg/dL (0.2-1.3); CALCIUM 8.6 mg/dL (8.5-10.1); CARBON DIOXIDE 29.7 mmol/L (21.0-32.0); MAGNESIUM - SERUM 2.4 mg/dL (1.8-2.4); PHOSPHOROUS 4.4 mg/dL (2.5-4.9); PROTEIN - SERUM 6.2 g/dL (6.4-8.2)
[2017-12-22] VITALS (20 sets, daily range): BP systolic 103–145; BP diastolic 65–86
[2017-12-22 04:34] LABS: BASOPHILS 0.1 % (0-2); EOSINOPHILS 1.2 % (0-7); HEMATOCRIT 31.5 % (36.0-48.0); HEMOGLOBIN 9.9 g/dL (12-16); LYMPHOCYTES 14.6 % (15-50); MCH 28.7 pg (26.0-34.0); MCHC 31.4 g/dL (31.0-37.0); MCV 91.3 fL (80.0-100.0); MEAN PLATELET VOLUME 8.6 fL (7.4-10.4); MONOCYTES 5.4 % (2-11); NEUTROPHILS 74.7 % (40-80); PLATELET COUNT 473 10x3/uL (130-400); RBC 3.45 10x6/uL (4.00-5.40)
[2017-12-22 04:45] LABS: ALBUMIN 2.4 g/dL (3.4-5.0); BILIRUBIN - TOTAL 0.22 mg/dL (0.2-1.3); CALCIUM 8.7 mg/dL (8.5-10.1); CARBON DIOXIDE 32.7 mmol/L (21.0-32.0); CREATININE - SERUM 0.9 mg/dL (0.6-1.3); MAGNESIUM - SERUM 2.5 mg/dL (1.8-2.4); PHOSPHOROUS 4.2 mg/dL (2.5-4.9); POTASSIUM - SERUM 4.7 mmol/L (3.5-5.1); PROTEIN - SERUM 6.7 g/dL (6.4-8.2)
[2017-12-23] VITALS (19 sets, daily range): BP systolic 95–124; BP diastolic 67–88
[2017-12-23 03:40] LABS: BASOPHILS 0.1 % (0-2); HEMATOCRIT 31.3 % (36.0-48.0); HEMOGLOBIN 9.9 g/dL (12-16); IMMATURE GRANULOCYTES 4.9 % (0-5); LYMPHOCYTES 16.4 % (15-50); MCH 28.6 pg (26.0-34.0); MCHC 31.6 g/dL (31.0-37.0); MCV 90.5 fL (80.0-100.0); MEAN PLATELET VOLUME 8.3 fL (7.4-10.4); MONOCYTES 5.3 % (2-11); NEUTROPHILS 71.3 % (40-80); PLATELET COUNT 442 10x3/uL (130-400); RBC 3.46 10x6/uL (4.00-5.40); RDW 15.1 % (11.5-14.5); WBC 22.8 10x3/uL (4.8-10.8)
[2017-12-23 04:03] LABS: ANION GAP 12.8 mmol/L (8-16); CALCIUM 8.6 mg/dL (8.5-10.1); CARBON DIOXIDE 29.8 mmol/L (21.0-32.0); POTASSIUM - SERUM 4.6 mmol/L (3.5-5.1); THYROID STIMULATING HORMONE 1.03 uIU/mL (0.36-3.74)
[2017-12-24] VITALS (24 sets, daily range): BP systolic 77–117; BP diastolic 41–80
[2017-12-24 03:03] LABS: BASOPHILS 0.2 % (0-2); EOSINOPHILS 2.3 % (0-7); HEMATOCRIT 31.5 % (36.0-48.0); HEMOGLOBIN 10.2 g/dL (12-16); IMMATURE GRANULOCYTES 4.5 % (0-5); LYMPHOCYTES 16.9 % (15-50); MCH 29.2 pg (26.0-34.0); MCHC 32.4 g/dL (31.0-37.0); MCV 90.3 fL (80.0-100.0); MEAN PLATELET VOLUME 8.3 fL (7.4-10.4); MONOCYTES 5.2 % (2-11); NEUTROPHILS 70.9 % (40-80); PLATELET COUNT 450 10x3/uL (130-400); RBC 3.49 10x6/uL (4.00-5.40); RDW 15.2 % (11.5-14.5); WBC 19.1 10x3/uL (4.8-10.8)
[2017-12-24 03:13] LABS: ANION GAP 8.9 mmol/L (8-16); CALCIUM 8.6 mg/dL (8.5-10.1); CARBON DIOXIDE 32.3 mmol/L (21.0-32.0); CREATININE - SERUM 0.9 mg/dL (0.6-1.3); POTASSIUM - SERUM 4.2 mmol/L (3.5-5.1)
[2017-12-25] VITALS (25 sets, daily range): BP systolic 82–122; BP diastolic 47–95
[2017-12-25 02:58] LABS: BASOPHILS 0.1 % (0-2); EOSINOPHILS 2.8 % (0-7); HEMATOCRIT 30.8 % (36.0-48.0); HEMOGLOBIN 9.8 g/dL (12-16); IMMATURE GRANULOCYTES 5.3 % (0-5); LYMPHOCYTES 20.7 % (15-50); MCH 28.7 pg (26.0-34.0); MCHC 31.8 g/dL (31.0-37.0); MCV 90.1 fL (80.0-100.0); MEAN PLATELET VOLUME 8.3 fL (7.4-10.4); MONOCYTES 6.3 % (2-11); NEUTROPHILS 64.8 % (40-80); PLATELET COUNT 425 10x3/uL (130-400); RBC 3.42 10x6/uL (4.00-5.40); RDW 15.3 % (11.5-14.5); WBC 15.4 10x3/uL (4.8-10.8)
[2017-12-25 03:16] LABS: ANION GAP 10.6 mmol/L (8-16); CALCIUM 8.6 mg/dL (8.5-10.1); CARBON DIOXIDE 31.7 mmol/L (21.0-32.0); POTASSIUM - SERUM 4.3 mmol/L (3.5-5.1)
[2017-12-25 11:20] LABS: CKMB 0.4 U/L (0.0-3.6); CREATINE KINASE 26 UL (21-215); TROPONIN-I < 0.017 ng/mL (0.000-0.060)
[2017-12-26] VITALS (12 sets, daily range): BP systolic 90–105; BP diastolic 56–83
[2017-12-26 04:36] LABS: BASOPHILS 0.1 % (0-2); EOSINOPHILS 2.2 % (0-7); HEMATOCRIT 31.3 % (36.0-48.0); HEMOGLOBIN 10.1 g/dL (12-16); IMMATURE GRANULOCYTES 4.4 % (0-5); LYMPHOCYTES 19.4 % (15-50); MCH 29.4 pg (26.0-34.0); MCHC 32.3 g/dL (31.0-37.0); MEAN PLATELET VOLUME 8.3 fL (7.4-10.4); MONOCYTES 6.6 % (2-11); NEUTROPHILS 67.3 % (40-80); PLATELET COUNT 430 10x3/uL (130-400); RBC 3.44 10x6/uL (4.00-5.40); RDW 15.2 % (11.5-14.5); WBC 14.8 10x3/uL (4.8-10.8)
[2017-12-26 04:51] LABS: ANION GAP 9.9 mmol/L (8-16); CALCIUM 8.6 mg/dL (8.5-10.1); CARBON DIOXIDE 33.1 mmol/L (21.0-32.0); CREATININE - SERUM 0.9 mg/dL (0.6-1.3)
[2017-12-27 00:58] VITALS: BP 97/60
[2017-12-27 04:00] VITALS: BP 111/66
[2017-12-27 07:16] LABS: BASOPHILS 0.2 % (0-2); EOSINOPHILS 3.2 % (0-7); HEMATOCRIT 30.2 % (36.0-48.0); HEMOGLOBIN 9.6 g/dL (12-16); IMMATURE GRANULOCYTES 2.3 % (0-5); LYMPHOCYTES 22.4 % (15-50); MCH 28.6 pg (26.0-34.0); MCHC 31.8 g/dL (31.0-37.0); MCV 89.9 fL (80.0-100.0); MEAN PLATELET VOLUME 8.2 fL (7.4-10.4); NEUTROPHILS 65.9 % (40-80); PLATELET COUNT 372 10x3/uL (130-400); RBC 3.36 10x6/uL (4.00-5.40); RDW 15.1 % (11.5-14.5); WBC 11.6 10x3/uL (4.8-10.8)
[2017-12-27 07:32] LABS: ANION GAP 14.1 mmol/L (8-16); CALCIUM 8.9 mg/dL (8.5-10.1); POTASSIUM - SERUM 4.1 mmol/L (3.5-5.1)
[2017-12-27 07:46] VITALS: BP 112/73
[2017-12-27 10:36] VITALS: BP 119/77
[2017-12-27 20:00] VITALS: BP 104/65
[2017-12-28] VITALS: BP 105/53
[2017-12-28 04:00] VITALS: BP 114/66
[2017-12-28 08:53] VITALS: BP 95/58
[2017-12-28 09:31] LABS: MAGNESIUM - SERUM 2.4 mg/dL (1.8-2.4); PHOSPHOROUS 3.6 mg/dL (2.5-4.9); POTASSIUM - SERUM 4.4 mmol/L (3.5-5.1)
[2017-12-28 12:36] VITALS: BP 99/61
[2017-12-28 15:38] VITALS: BP 107/62
[2017-12-28 21:12] VITALS: BP 119/62
[2017-12-29 01:46] VITALS: BP 107/58
[2017-12-29 05:05] VITALS: BP 105/63
[2017-12-29 08:23] VITALS: BP 112/76
[2017-12-29 11:48] VITALS: BP 100/64
== END 2017-12-29 15:06 | DRG 515 ==
LOC: D.ER 12:24 → D.EDHOLD 17:24 → D.ICU 17:24 → D.M2 17:24 → D.MS 17:24 → D.ICU 12-16 11:07 → D.M2 12-26 17:16
PROVIDERS: Family Medicine; Internal Medicine Nephrology; Internal Medicine Pulmonary Disease; Neurological Surgery
PROC: 0PB40ZZ Excision of Thoracic Vertebra, Open Approach (ICD-10-PCS; 2017-12-13)
PROC: 0PH404Z Insertion of Internal Fixation Device into Thoracic Vertebra, Open Approach (ICD-10-PCS; 2017-12-13)
PROC: 0X9J0ZZ Drainage of Right Hand, Open Approach (ICD-10-PCS; principal; 2017-12-16 07:30)
DX: C79.51 Secondary malignant neoplasm of bone (principal); J95.821 Acute postprocedural respiratory failure; G95.29 Other cord compression; L03.213 Periorbital cellulitis; M48.54XA Collapsed vertebra, not elsewhere classified, thoracic region, initial encounter for fracture; C64.1 Malignant neoplasm of right kidney, except renal pelvis; D62 Acute posthemorrhagic anemia; L76.32 Postprocedural hematoma of skin and subcutaneous tissue following other procedure; Z90.5 Acquired absence of kidney; K21.9 Gastro-esophageal reflux disease without esophagitis; Y83.9 Surgical procedure, unspecified as the cause of abnormal reaction of the patient, or of later complication, without mention of misadventure at the time of the procedure; B37.2 Candidiasis of skin and nail

== ENCOUNTER 2018-04-28 13:43 | Emergency (ER) | payer MEDICAID ==
[~2018-04-28] VITALS: Ht 162.6 cm; Wt 105.5 kg
[~2018-04-28 13:43] MED LIST changes: +ATIVAN1 MG PO; +NEURONTIN800 MG PO
[2018-04-28 14:19] VITALS: Ht 162.6 cm; Wt 105.5 kg
[2018-04-28] MEDS ORDERED: CIPRO500 MG PO (14:22)
[2018-04-28] MEDS ORDERED: PEPCID AC20 MG PO (14:22)
[2018-04-28] MEDS ORDERED: OXYCONTIN10 MG PO (14:23)
[2018-04-28] MEDS ORDERED: ULTRAM50 MG PO (14:23)
[2018-04-28] MEDS ORDERED: VALIUM 2 MG TAB2 MG PO (14:23)
[2018-04-28] MEDS ORDERED: NEURONTIN 300300 MG PO (14:24)
[2018-04-28] MEDS ORDERED: SUTENT50 MG PO (14:24)
[2018-04-28 15:09] LABS: APPEARANCE CLEAR (CLEAR); BILIRUBIN NEGATIVE (NEGATIVE); COLOR YELLOW (YELLOW); GLUCOSE NEGATIVE (NEGATIVE); KETONE NEGATIVE (NEGATIVE); NITRITE NEGATIVE (NEGATIVE); PROTEIN NEGATIVE (NEGATIVE); UROBILINOGEN NORMAL (NORMAL)
[2018-04-28 15:15] LABS: BASOPHILS 0.2 % (0-2); EOSINOPHILS 3.6 % (0-7); HEMOGLOBIN 11.2 g/dL (12-16); IMMATURE GRANULOCYTES 0.5 % (0-5); LYMPHOCYTES 27.5 % (15-50); MCH 26.9 pg (26.0-34.0); MCHC 31.1 g/dL (31.0-37.0); MCV 86.3 fL (80.0-100.0); MEAN PLATELET VOLUME 8.6 fL (7.4-10.4); MONOCYTES 8.2 % (2-11); PLATELET COUNT 334 10x3/uL (130-400); RBC 4.17 10x6/uL (4.00-5.40); RDW 18.1 % (11.5-14.5); WBC 10.7 10x3/uL (4.8-10.8)
[2018-04-28 15:42] LABS: ALBUMIN 2.8 g/dL (3.4-5.0); BILIRUBIN - TOTAL 0.34 mg/dL (0.2-1.3); CALCIUM 8.4 mg/dL (8.5-10.1); CARBON DIOXIDE 28.2 mmol/L (21.0-32.0); CREATININE - SERUM 1.4 mg/dL (0.6-1.3); POTASSIUM - SERUM 4.2 mmol/L (3.5-5.1); PROTEIN - SERUM 7.6 g/dL (6.4-8.2)
[2018-04-28 17:15] VITALS: BP 116/68
== END 2018-04-28 17:18 | disposition left against medical advice (07) ==
LOC: D.ER 13:43
PROVIDERS: Family Medicine
DX: R00.1 Bradycardia, unspecified (principal)

== ENCOUNTER → 2018-07-06 08:21 | Outpatient (CLI) | payer MEDICAID ==
[2018-04-28 14:19] VITALS: BMI 39.9
[~2018-07-06 08:21] MED LIST changes: +CIPRO500 MG PO; +NEURONTIN 300300 MG PO; +OXYCONTIN10 MG PO; +PEPCID AC20 MG PO; +SUTENT50 MG PO; +ULTRAM50 MG PO; +VALIUM 2 MG TAB2 MG PO
== END | disposition home or self-care (01) ==
LOC: D.RAD 08:00
DX: R13.19 Other dysphagia (principal)

== ENCOUNTER → 2018-08-09 13:33 | Outpatient (CLI) | payer MEDICAID ==
[2018-04-28 14:19] VITALS: BMI 39.9
[2018-08-09 14:41] LABS: CREATININE - SERUM 1.8 mg/dL (0.6-1.3)
== END | disposition home or self-care (01) ==
LOC: D.CT 13:33
PROVIDERS: Nurse Practitioner Family
DX: R06.02 Shortness of breath (principal)

== ENCOUNTER 2018-12-19 20:02 | Emergency (ER) | payer MEDICAID ==
[~2018-12-19] VITALS: Ht 162.6 cm; Wt 118.2 kg
[2018-12-19 20:08] VITALS: Ht 162.6 cm; Wt 118.2 kg
[2018-12-19 20:43] LABS: BASOPHILS 0.1 % (0-2); EOSINOPHILS 4.8 % (0-7); HEMATOCRIT 35.8 % (36.0-48.0); HEMOGLOBIN 11.7 g/dL (12-16); IMMATURE GRANULOCYTES 0.1 % (0-5); LYMPHOCYTES 24.9 % (15-50); MCH 33.5 pg (26.0-34.0); MCHC 32.7 g/dL (31.0-37.0); MCV 102.6 fL (80.0-100.0); MEAN PLATELET VOLUME 8.6 fL (7.4-10.4); MONOCYTES 5.8 % (2-11); NEUTROPHILS 64.3 % (40-80); RBC 3.49 10x6/uL (4.00-5.40); RDW 15.7 % (11.5-14.5); WBC 7.1 10x3/uL (4.8-10.8)
[2018-12-19 20:48] LABS: PLATELET COUNT 240 10x3/uL (130-400)
[2018-12-19 20:57] LABS: ALBUMIN 3.1 g/dL (3.4-5.0); ALKALINE PHOSPHATASE 70 U/L (46-116); ALT (SGPT) 48 U/L (10-68); CALC OSMOLALITY 283 mosm/kg (275-300); CARBON DIOXIDE 27.6 mmol/L (21.0-32.0); CHLORIDE - SERUM 105 mmol/L (98-107); CREATININE - SERUM 1.6 mg/dL (0.6-1.3); GLUCOSE 117 mg/dL (74-106); POTASSIUM - SERUM 3.9 mmol/L (3.5-5.1); PROTEIN - SERUM 7.1 g/dL (6.4-8.2); SODIUM 141 mmol/L (136-145); UREA NITROGEN 17 mg/dL (7-18); eGFR NON AFRICAN AMERICAN 35 mL/min (90-120)
[2018-12-19 21:00] LABS: AMYLASE - SERUM 29 U/L (25-115); LIPASE 93 U/L (73-393); TROPONIN-I < 0.017 ng/mL (0.000-0.060)
[2018-12-19 23:46] LABS: APPEARANCE HAZY (CLEAR); BILIRUBIN NEGATIVE (NEGATIVE); COLOR YELLOW (YELLOW); GLUCOSE NEGATIVE (NEGATIVE); KETONE NEGATIVE (NEGATIVE); NITRITE NEGATIVE (NEGATIVE); PROTEIN TRACE mg/dL (NEGATIVE); SPECIFIC GRAVITY 1.005 (1.005-1.020); UROBILINOGEN NORMAL (NORMAL)
[2018-12-19 23:49] LABS: BACTERIA FEW /hpf (NONE SEEN); EPITHELIAL CELLS 0-5 /hpf (0-5); HYALINE CAST RARE /lpf (NONE SEEN); RED CELLS - URINE 0-5 /hpf (0-5); WHITE CELLS - URINE 0-5 /hpf (0-5)
[2018-12-20] MEDS ORDERED: ZOFRAN ODT4 MG/UDTAB PO (01:24)
[2018-12-20 01:46] VITALS: BP 162/78
== END 2018-12-20 01:46 | disposition home or self-care (01) ==
LOC: D.ER 20:02
PROVIDERS: Family Medicine
DX: R10.9 Unspecified abdominal pain (principal); R11.0 Nausea; K21.9 Gastro-esophageal reflux disease without esophagitis; I10 Essential (primary) hypertension

== ENCOUNTER 2019-02-21 21:05 | Emergency (ER) | payer MEDICAID ==
[~2019-02-21] VITALS: Ht 162.6 cm; Wt 119.1 kg
[~2019-02-21 21:05] MED LIST changes: +ZOFRAN ODT4 MG/UDTAB PO
[2019-02-21 21:06] VITALS: Ht 162.6 cm; Wt 119.1 kg
[2019-02-21] MEDS ORDERED: NEURONTIN800 MG PO (21:18)
[2019-02-21] MEDS ORDERED: CARDURA2 MG PO (21:19)
[2019-02-21] MEDS ORDERED: OMEPRAZOLE40 MG PO (21:19)
[2019-02-21] MEDS ORDERED: LEVOXYL75 MCG PO (21:22)
[2019-02-21] MEDS ORDERED: ATIVAN1 MG PO (21:22)
[2019-02-21] MEDS ORDERED: MICARDIS HCT 81 EACH PO (21:22)
[2019-02-21] MEDS ORDERED: HYDROCODON-ACE1 EAC2 PO (21:22)
[2019-02-21] MEDS ORDERED: OXYCONTIN10 MG PO (21:23)
[2019-02-21] MEDS ORDERED: EFFEXOR XR150 MG PO (21:23)
[2019-02-21 22:23] LABS: BASOPHILS 0.2 % (0-2); EOSINOPHILS 7.6 % (0-7); HEMATOCRIT 32.3 % (36.0-48.0); HEMOGLOBIN 10.3 g/dL (12-16); IMMATURE GRANULOCYTES 0.2 % (0-5); LYMPHOCYTES 23.1 % (15-50); MCH 32.3 pg (26.0-34.0); MCHC 31.9 g/dL (31.0-37.0); MCV 101.3 fL (80.0-100.0); MEAN PLATELET VOLUME 8.6 fL (7.4-10.4); MONOCYTES 7.1 % (2-11); NEUTROPHILS 61.8 % (40-80); PLATELET COUNT 220 10x3/uL (130-400); RBC 3.19 10x6/uL (4.00-5.40); RDW 18.7 % (11.5-14.5); WBC 6.6 10x3/uL (4.8-10.8)
[2019-02-21 22:41] LABS: APPEARANCE CLEAR (CLEAR); BILIRUBIN NEGATIVE (NEGATIVE); COLOR YELLOW (YELLOW); GLUCOSE NEGATIVE (NEGATIVE); KETONE NEGATIVE (NEGATIVE); NITRITE NEGATIVE (NEGATIVE); PROTEIN NEGATIVE (NEGATIVE); SPECIFIC GRAVITY 1.015 (1.005-1.020); UROBILINOGEN NORMAL (NORMAL)
[2019-02-21 22:45] LABS: ALBUMIN 2.6 g/dL (3.4-5.0); ALKALINE PHOSPHATASE 90 U/L (46-116); ALT (SGPT) 31 U/L (10-68); BILIRUBIN - TOTAL 0.32 mg/dL (0.2-1.3); CALC OSMOLALITY 280 mosm/kg (275-300); CALCIUM 8.2 mg/dL (8.5-10.1); CARBON DIOXIDE 32.4 mmol/L (21.0-32.0); CHLORIDE - SERUM 102 mmol/L (98-107); CREATININE - SERUM 1.6 mg/dL (0.6-1.3); GLUCOSE 134 mg/dL (74-106); POTASSIUM - SERUM 3.4 mmol/L (3.5-5.1); PROTEIN - SERUM 6.6 g/dL (6.4-8.2); SODIUM 139 mmol/L (136-145); UREA NITROGEN 15 mg/dL (7-18); eGFR NON AFRICAN AMERICAN 35 mL/min (90-120)
[2019-02-21 22:47] LABS: LIPASE 77 U/L (73-393)
[2019-02-21 22:48] LABS: TROPONIN-I < 0.017 ng/mL (0.000-0.060)
[2019-02-21 23:27] VITALS: BP 108/54
== END 2019-02-21 23:27 | disposition home or self-care (01) ==
LOC: D.ER 21:05
PROVIDERS: Family Medicine
DX: C79.00 Secondary malignant neoplasm of unspecified kidney and renal pelvis (principal); N28.9 Disorder of kidney and ureter, unspecified

== ENCOUNTER 2019-02-22 23:06 | Inpatient (IN) | payer MEDICAID ==
[~2019-02-22] VITALS: Ht 162.6 cm; Wt 118.8 kg
[2019-02-22 00:10] VITALS: BP 137/84
[~2019-02-22 23:06] MED LIST changes: +CARDURA2 MG PO; +HYDROCODON-ACE1 EAC2 PO; +LEVOXYL75 MCG PO; +MICARDIS HCT 81 EACH PO; +OMEPRAZOLE40 MG PO
--- NOTE | 2019-02-23 00:30 | NUR ---
PT ARRIVED TO FLOOR VIA WHEELCHAIR. ASSISTED INTO BED. AT BEDSIDE. ALERT AND ORIENTED. VSS. DENIES BEING DIZZY OR LIGHTHEADED AT THIS TIME. IV LEFT FA INFUSING NS @ 125. PT STATES SHE USUALLY WALKS WITH WALKER AT HOME D/T WEAKNESS FROM PREVIOUS BACK SURGERIES. PROVIDED PT WITH WALKER TO AMBULATE, ENCOURAGED TO CALL WITH NEEDS SO THIS NURSE COULD ASSIST. PT STATES PAIN 10/10 ACROSS HIPS AND BELOW LEFT RIB CAGE. BP 137/84, GAVE DILAUDID ORDERED. PROVIDED PT WITH ICE WATER AND EXTRA PILLOW. TELE MONITOR PLACED ON PT WITH HR 81 SR. DENIES OTHER NEEDS. CL IN REACH, WILL CTM
[2019-02-23 00:45] VITALS: BP 116/74
--- NOTE | 2019-02-23 01:00 | NUR ---
RECHECKED PT BP 45 MINUTES AFTER ADMINISTERING DILAUDID, NOW 116/74 FROM 137/84
--- NOTE | 2019-02-23 02:45 | NUR ---
STAND BY ASSISTED PT TO BATHROOM TO VOID AND BACK TO BED. PT USED WALKER TO AMBULATE WITHOUT DIFFICULTY. DENIES OTHER NEEDS, CL IN REACH. WILL CTM
[2019-02-23 04:06] VITALS: BP 137/84; BMI 45.0
--- NOTE | 2019-02-23 04:20 | NUR ---
PT BP 132/74. GAVE DILAUDID ORDERED FOR PAIN 10 IN HIPS
[2019-02-23 05:40] VITALS: BP 132/74
--- NOTE | 2019-02-23 07:15 | NUR ---
PATIENT IN BED WITH IV INTACT. NO COMPLAINTS OR SIGNS OF DISTRESS. CALL LIGHT WITHIN REACH.
[2019-02-23 07:38] LABS: ALBUMIN 2.6 g/dL (3.4-5.0); ALKALINE PHOSPHATASE 77 U/L (46-116); ALT (SGPT) 27 U/L (10-68); BILIRUBIN - TOTAL 0.41 mg/dL (0.2-1.3); CALC OSMOLALITY 280 mosm/kg (275-300); CALCIUM 8.1 mg/dL (8.5-10.1); CARBON DIOXIDE 30.2 mmol/L (21.0-32.0); CHLORIDE - SERUM 102 mmol/L (98-107); CREATININE - SERUM 1.4 mg/dL (0.6-1.3); GLUCOSE 108 mg/dL (74-106); LIPASE 70 U/L (73-393); POTASSIUM - SERUM 3.6 mmol/L (3.5-5.1); PROTEIN - SERUM 6.7 g/dL (6.4-8.2); SODIUM 140 mmol/L (136-145); TROPONIN-I < 0.017 ng/mL (0.000-0.060); UREA NITROGEN 15 mg/dL (7-18); eGFR NON AFRICAN AMERICAN 41 mL/min (90-120)
[2019-02-23 07:50] LABS: BASOPHILS 0.1 % (0-2); EOSINOPHILS 4.9 % (0-7); HEMATOCRIT 30.2 % (36.0-48.0); HEMOGLOBIN 9.6 g/dL (12-16); IMMATURE GRANULOCYTES 0.1 % (0-5); MCH 31.9 pg (26.0-34.0); MCHC 31.8 g/dL (31.0-37.0); MCV 100.3 fL (80.0-100.0); MEAN PLATELET VOLUME 8.5 fL (7.4-10.4); NEUTROPHILS 62.9 % (40-80); PLATELET COUNT 259 10x3/uL (130-400); RBC 3.01 10x6/uL (4.00-5.40); RDW 18.8 % (11.5-14.5); WBC 7.2 10x3/uL (4.8-10.8)
[2019-02-23 08:50] VITALS: BP 93/45
[2019-02-23 10:10] LABS: % SATURATION 20 % (15-55); IRON 43 ug/dl (35-150); TOTAL IRON BIND CAPACITY 206 ug/dl (260-445); UNSAT IRON BIND CAPACITY 163 ug/dl (150-375)
[2019-02-23 12:45] LABS: APPEARANCE CLEAR (CLEAR); BILIRUBIN NEGATIVE (NEGATIVE); COLOR YELLOW (YELLOW); GLUCOSE NEGATIVE (NEGATIVE); KETONE NEGATIVE (NEGATIVE); NITRITE NEGATIVE (NEGATIVE); PROTEIN NEGATIVE (NEGATIVE); SPECIFIC GRAVITY 1.005 (1.005-1.020)
[2019-02-23 14:09] VITALS: BMI 45.0
--- NOTE | 2019-02-23 14:37 | MORECARE ---
CASE MANAGEMENT DISCHARGE SUMMARY PATIENT: MADHURI MARLEY UNIT: [id number] ADM DATE: 02/22/19 AGE: 58 : 56 SEX: F ROOM/BED: D.2225 AUTHOR: LINDA LAYNE PHYSICIAN: REFERRING PHYSICIAN: ASHLEE PATTERSON MD DATE OF SERVICE: 02/23/19 Discharge Plan Patient Name: MADHURI MARLEY [facility] [facility] 1960 Planned Disposition: Home Anticipated Discharge Date: Discharge Date: Expected LOS: Initial Reviewer: [email or web address] Initial Review Date: 02/23/2019 Generated: 02/23/19 3:37 pm DCPIA - Discharge Planning Initial Assessment Updated by [email or web address]: Claudette Reich on 02/23/19 2:35 pm * Is the patient Alert and Oriented? Yes * How many steps to enter\exit or inside your home? 2/0 * PCP Dr. Silver * Pharmacy [facility] * Preadmission Environment Home with Family * ADLs Partial Dependent * Partial ADLs (Assistance needed) Ambulation * Equipment Bedside Commode Other Shower Chair Walker Wheelchair * Other Equipment Lift chair * List name and contact numbers for known caregivers / representatives who currently or will assist patient after discharge: Reese Montano - [phone] Myrna Wilkins - mother - [phone] * Verbal permission to speak to the caregivers and representatives has been obtained from the patient. Yes * Community resources currently utilized Other * Please name any agencies selected above. [employer] * Additional services required to return to the preadmission environment? No * Can the patient safely return to the preadmission environment? Yes * Has this patient been hospitalized within the prior 30 days at any hospital? No Patient Name: MADHURI MARLEY Page [id number] at 1437 All edits/amendments must be made on the electronic document DICTATION DATE: 02/23/19 1436 MILL CRANE OPERATOR: ALFRED 02/23/19 1436 RPT#: [id number] DC DATE: STATUS: ADM IN [facility] [address] [place] [address] END OF REPORT
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
--- NOTE | 2019-02-23 15:27 | NUR ---
PATIENT RECIEVED VALIUM FOR MRI.
--- NOTE | 2019-02-23 15:40 | NUR ---
PATIENT BACK TO ROOM AT THIS TIME. UNABLE TO TOLERATE PAIN IN BACK TO LAY FLAT FOR MRI. IV INTACT. NO COMPLAINTS OR SIGNS OF DISTRESS. BACK TO BED. TELEMETRY PLACED ON. CALL LIGHT WITHIN REACH.
--- NOTE | 2019-02-23 15:41 | NUR ---
PT TO MRI FOR MRI THORACIC AND LUMBAR SPINE W/WO. ATTEMPTED TO GET PT ON THE TABLE, SHE COULD NOT LAY FLAT FOR MORE THAT A MINUTE WITHOUT HER GETTING SPASMS IN HER BACK AND HAVING TO SIT UP AGAIN. WE ATTEMPTED THIS TWO TIMES BOTH WITH THE SAME RESULTS. PT INFORMED THAT TEST WILL TAKE 1 1/2 HRS TO COMPLETE AND SHE SAID SHE COULD BARELY LAY FLAT FOR THE CT SHE JUST HAD. PT STATED THAT SHE CAN'T DO THIS TEST AT THIS TIME AND WILL DISCUSS THIS WITH DR WALDROP. PT RETURNED TO HER ROOM AND DAMEON ZENDEJAS WAS NOTIFIED OF PATIENTS STATUS.
--- NOTE | 2019-02-23 15:50 | NUR ---
KENNY FROM MRI CALLED AND STATED THAT THE RADIOLOGIST RECOMMENDED CT SCAN SINCE PATIENT COULDNT TOLERATE MRI. PATIENT STATED SHE WAS GOING TO TALK TO DR. WALDROP IN THE MORNING. CALL LIGHT WITHIN REACH.
[2019-02-23 16:58] VITALS: BP 84/50
--- NOTE | 2019-02-23 18:55 | NUR ---
PATIENT IN BED WITH EYES CLOSED RESTING QUIETLY. IV INTACT. FAMILY AT BEDSIDE. CALL LIGHT WITHIN REACH.
[2019-02-23 20:22] VITALS: BP 102/53
--- NOTE | 2019-02-24 00:44 | NUR ---
REST QUIETLY IN BED, FAMILY MEMBER AT BEDSIDE. CALL LIGHT IN REACH.
[2019-02-24 05:17] LABS: BASOPHILS 0.2 % (0-2); EOSINOPHILS 5.6 % (0-7); HEMATOCRIT 29.4 % (36.0-48.0); HEMOGLOBIN 9.1 g/dL (12-16); IMMATURE GRANULOCYTES 0.2 % (0-5); LYMPHOCYTES 22.4 % (15-50); MCH 31.7 pg (26.0-34.0); MEAN PLATELET VOLUME 8.3 fL (7.4-10.4); MONOCYTES 10.2 % (2-11); NEUTROPHILS 61.4 % (40-80); PLATELET COUNT 221 10x3/uL (130-400); RBC 2.87 10x6/uL (4.00-5.40); RDW 18.8 % (11.5-14.5); WBC 5.9 10x3/uL (4.8-10.8)
[2019-02-24 05:22] LABS: MCV 102.4 fL (80.0-100.0)
[2019-02-24 05:26] VITALS: BP 100/57
[2019-02-24 05:32] LABS: ALBUMIN 2.2 g/dL (3.4-5.0); ANION GAP 8.4 mmol/L (8-16); BILIRUBIN - TOTAL 0.29 mg/dL (0.2-1.3); CALCIUM 7.4 mg/dL (8.5-10.1); CARBON DIOXIDE 29.4 mmol/L (21.0-32.0); CREATININE - SERUM 1.3 mg/dL (0.6-1.3); POTASSIUM - SERUM 3.8 mmol/L (3.5-5.1); PROTEIN - SERUM 5.8 g/dL (6.4-8.2)
--- NOTE | 2019-02-24 06:39 | NUR ---
I have reviewed this patient and I concur with the Shift Assessment completed by the Licensed Practical Nurse today this shift.
--- NOTE | 2019-02-24 08:35 | NUR ---
ON ROOM AIR, AAOX4. C/O DISCOMFORT TO LOWER BACK, IV TO LEFT FOREARM, PATENT, NS AT 125ML/HR. ON TELEMETRY, PRESENT IN ROOM, DENIES ANY OTHER NEEDS OR DISCOMFORTS, BED LOWERED AND LOCKED, CALL LIGHT WITHIN REACH. CPOC
[2019-02-24 08:42] VITALS: BP 100/59
[2019-02-24 11:16] VITALS: Ht 162.6 cm; Wt 118.8 kg
[2019-02-24 12:37] VITALS: BP 103/70
[2019-02-24 16:50] VITALS: BP 126/71
[2019-02-24 18:21] VITALS: BP 126/71
[2019-02-24 21:43] VITALS: BP 107/63
--- NOTE | 2019-02-24 22:45 | NUR ---
A&O X 4. VS WNL. AMBULATORY. STATES SHE HAS NOT HAD A BM SINCE BEFORE ADMISSION. DECREASED APPETITE. BOWEL SOUNDS ACTIVE. REPORTED MILD NAUSEA W/O VOMITTING. PT REPORTS SEVERE PAIN. STATES SCHEDULED PAIN MEDICATION DOES NOT WORK, AND ONLY MAKES HER SLEEPY. ADVISED PT TO TRY HEAT PAD WELL, PT REPORTS INCREASE IN COMFORT AFTER APPLYING PAD, WILL CONTINUE TO MONITOR..
[2019-02-25] VITALS (8 sets, daily range): BP systolic 91–127; BP diastolic 58–80
--- NOTE | 2019-02-25 03:23 | NUR ---
I have reviewed this patient and I concur with the Shift Assessment completed by the Licensed Practical Nurse today this shift.
[2019-02-25 05:26] LABS: BASOPHILS 0.2 % (0-2); EOSINOPHILS 5.7 % (0-7); HEMATOCRIT 27.6 % (36.0-48.0); HEMOGLOBIN 8.7 g/dL (12-16); IMMATURE GRANULOCYTES 0.2 % (0-5); MCHC 31.5 g/dL (31.0-37.0); MCV 101.5 fL (80.0-100.0); MEAN PLATELET VOLUME 8.3 fL (7.4-10.4); MONOCYTES 10.6 % (2-11); NEUTROPHILS 61.3 % (40-80); PLATELET COUNT 226 10x3/uL (130-400); RBC 2.72 10x6/uL (4.00-5.40); RDW 18.9 % (11.5-14.5); WBC 5.5 10x3/uL (4.8-10.8)
[2019-02-25 05:43] LABS: ALBUMIN 2.2 g/dL (3.4-5.0); ANION GAP 10.7 mmol/L (8-16); BILIRUBIN - TOTAL 0.35 mg/dL (0.2-1.3); CALCIUM 7.3 mg/dL (8.5-10.1); CARBON DIOXIDE 26.9 mmol/L (21.0-32.0); CREATININE - SERUM 1.3 mg/dL (0.6-1.3); POTASSIUM - SERUM 3.6 mmol/L (3.5-5.1); PROTEIN - SERUM 5.8 g/dL (6.4-8.2)
--- NOTE | 2019-02-25 09:10 | NUR ---
AAOX4. ON ROOM AIR, IV TO RIGHT HAND PATENT, INFUSING NS AT 100ML/HR, IV TO RIGHT AC, PATENT, SALINE LOCKED, DRESSING C/D/I, NO REDNESS OR SWELLING TO SITES, PAIN TO 10/10 TO LEFT FLANKS, UNDER LEFT BREAST AREA, DENIES ANY CURRENT NEEDS OR DISCOMFORT, BED LOWERED AND LOCKED, CALL LIGHT WITHIN REACH. CPOC
--- NOTE | 2019-02-25 16:11 | NUR ---
IV TO RIGHT AC DISCONTINUED WITH CATHETER TIP INTACT.
--- NOTE | 2019-02-25 18:55 | NUR ---
aaox4. on room air, iv to right hand, patent infusing ns at 125ml/hr. dilaudid director of regulatory affairs infusing at 0.2/10. blood pressure still running low, but stable. consents signed for port placement tomorrow. poor appetite. denies any current needs or discomforts, bed lowered and locked, call light within reach. cpoc
[2019-02-26] VITALS (7 sets, daily range): BP systolic 104–133; BP diastolic 61–86
[2019-02-26 06:41] LABS: BASOPHILS 0.2 % (0-2); EOSINOPHILS 5.4 % (0-7); HEMATOCRIT 27.8 % (36.0-48.0); HEMOGLOBIN 8.7 g/dL (12-16); IMMATURE GRANULOCYTES 0.2 % (0-5); LYMPHOCYTES 22.2 % (15-50); MCH 31.8 pg (26.0-34.0); MCHC 31.3 g/dL (31.0-37.0); MCV 101.5 fL (80.0-100.0); MEAN PLATELET VOLUME 8.4 fL (7.4-10.4); MONOCYTES 11.4 % (2-11); NEUTROPHILS 60.6 % (40-80); PLATELET COUNT 239 10x3/uL (130-400); RBC 2.74 10x6/uL (4.00-5.40); RDW 18.9 % (11.5-14.5); WBC 4.8 10x3/uL (4.8-10.8)
[2019-02-26 06:56] LABS: ALBUMIN 2.2 g/dL (3.4-5.0); ANION GAP 10.3 mmol/L (8-16); BILIRUBIN - TOTAL 0.32 mg/dL (0.2-1.3); CALCIUM 8.4 mg/dL (8.5-10.1); CARBON DIOXIDE 26.4 mmol/L (21.0-32.0); CREATININE - SERUM 1.2 mg/dL (0.6-1.3); POTASSIUM - SERUM 3.7 mmol/L (3.5-5.1); PROTEIN - SERUM 6.1 g/dL (6.4-8.2)
--- NOTE | 2019-02-26 10:29 | NUR ---
ADMINISTERED PREOP MEDS FOR PT WELL ORDERED PAIN MEDICAATION, PT ON SERVICER TRAVEL TRAILERS AND STATES SERVICER TRAVEL TRAILERS IS NOT HELPING. FAMILY AT BEDSIDE, CONTINUE WITH PLAN OF CARE
--- NOTE | 2019-02-26 16:46 | NUR ---
OT NOTE: PT COMPLETED ORAL HYGIENE WITH SET UP. PT COMPLETED HAIR GROOMING WITH SET UP. PT COMPLETED FACE WASHING WITH SET UP. THANK YOU, JATIN ESPINO
--- NOTE | 2019-02-26 18:47 | NUR ---
I have reviewed this patient and I concur with the Shift Assessment completed by the Licensed Practical Nurse today this shift.
--- NOTE | 2019-02-26 19:45 | NUR ---
PT SITTING UP IN BED WITHOUT DISTRESS, ALERT AND ORIENTED. AT BEDSIDE. IV RIGHT HAND INFUSING NS @ 125. DILAUDID ETL APPLICATION DEVELOPER IN USE, PAIN IN BACK 03/07. LEFT PORT DRESSING CDI, PT STATES SOME SORENESS AROUND SITE. RODRIGO HOSE ON. DENIES NEEDS. CL IN REACH, WILL CTM
--- NOTE | 2019-02-26 21:00 | NUR ---
ASSISTED PT ON AND OFF BEDPAN, OVERFLOWED MICHAUD. CHANGED LINENS. DENIES OTHER NEEDS
[2019-02-27 01:17] VITALS: BP 107/57
[2019-02-27 05:20] VITALS: BP 117/72
[2019-02-27 06:15] LABS: ALBUMIN 2.1 g/dL (3.4-5.0); ANION GAP 12.7 mmol/L (8-16); BILIRUBIN - TOTAL 0.25 mg/dL (0.2-1.3); CALCIUM 7.6 mg/dL (8.5-10.1); CREATININE - SERUM 1.2 mg/dL (0.6-1.3); PROTEIN - SERUM 5.3 g/dL (6.4-8.2)
[2019-02-27 06:19] LABS: POTASSIUM - SERUM 4.7 mmol/L (3.5-5.1)
[2019-02-27 06:47] LABS: BASOPHILS 0.2 % (0-2); EOSINOPHILS 1.5 % (0-7); HEMATOCRIT 25.5 % (36.0-48.0); HEMOGLOBIN 7.9 g/dL (12-16); IMMATURE GRANULOCYTES 1.3 % (0-5); LYMPHOCYTES 26.3 % (15-50); MCH 31.7 pg (26.0-34.0); MCV 102.4 fL (80.0-100.0); MEAN PLATELET VOLUME 8.7 fL (7.4-10.4); MONOCYTES 10.9 % (2-11); NEUTROPHILS 59.8 % (40-80); PLATELET COUNT 235 10x3/uL (130-400); RBC 2.49 10x6/uL (4.00-5.40); RDW 19.1 % (11.5-14.5); WBC 5.4 10x3/uL (4.8-10.8)
[2019-02-27 09:00] VITALS: BP 131/73; BP 138/75
--- NOTE | 2019-02-27 13:26 | NUR ---
NUTRITION F/U S/P PORT PLACEMENT. TOLERATING REG DIET. PT REPORTS SHE DOESN'T HAVE MUCH APPETITE. WILL HONOR FOOD PREFERENCES, MONITOR PO INTAKE. RD FOLLOWING
--- NOTE | 2019-02-27 15:38 | NUR ---
PULLED FENTANYL PATCH TO CHANGE PT CHILDCARE AIDE TO PATCH, CHILDCARE AIDE WAS ALARMMG EMPTY, ADVISED PT THAT I AM CHANGING PAIN MEDS PER ORDER AND HAD OPENED PATCH TO PLACE ON HER. ADVISED PT IT IS 25MG OF FENTANYL AND PT AND MOTHER STATED PT CAN NOT HAVE FENTANYL PATCH THAT IT MAKES HER HALLUCINATE AND CLAW AT THE ARZATE, PT ALSO STATED SHE HAS A PAIN CONTRACT WITH DR WALDROP AND TO CALL DR WALDROP. CALLED JULIANAdali AND ADVISED OF PT REACTION TO FENTANYL AND HAD DR WALDROP PAGED
--- NOTE | 2019-02-27 16:30 | NUR ---
OT NOTE: PT REQUIRED MAX A X 2 FOR BED MOB TASK. PT COMPLETED ORAL HYGIENE WITH SET UP. THANK YOU, JATIN ESPINO
[2019-02-27 17:06] VITALS: BP 147/77
--- NOTE | 2019-02-27 18:55 | NUR ---
I have reviewed this patient and I concur with the Shift Assessment completed by the Licensed Practical Nurse today this shift.
--- NOTE | 2019-02-27 19:25 | NUR ---
PT SITTING UP IN BED WITHOUT DISTRESS, ALERT AND ORIENTED. STATES PAIN IN BACK 06/07. GAVE DILAUDID ORDERED. IV RIGHT HAND INFUSING NS @ 50. DENIES OTHER NEEDS. CL IN REACH, WILL CTM
[2019-02-27 21:07] VITALS: BP 137/70
[2019-02-28 01:00] VITALS: BP 153/88
[2019-02-28 05:02] VITALS: BP 141/81
[2019-02-28 06:07] LABS: BASOPHILS 0.2 % (0-2); EOSINOPHILS 4.4 % (0-7); IMMATURE GRANULOCYTES 0.8 % (0-5); LYMPHOCYTES 20.8 % (15-50); MCH 31.9 pg (26.0-34.0); MCHC 33.1 g/dL (31.0-37.0); MEAN PLATELET VOLUME 8.3 fL (7.4-10.4); NEUTROPHILS 61.8 % (40-80); PLATELET COUNT 200 10x3/uL (130-400); RDW 19.3 % (11.5-14.5); WBC 6.6 10x3/uL (4.8-10.8)
[2019-02-28 06:17] LABS: ALBUMIN 2.2 g/dL (3.4-5.0); BILIRUBIN - TOTAL 0.72 mg/dL (0.2-1.3); CALCIUM 8.2 mg/dL (8.5-10.1); CARBON DIOXIDE 24.7 mmol/L (21.0-32.0); CREATININE - SERUM 1.1 mg/dL (0.6-1.3); POTASSIUM - SERUM 3.7 mmol/L (3.5-5.1); PROTEIN - SERUM 6.1 g/dL (6.4-8.2)
[2019-02-28 06:22] LABS: HEMATOCRIT 32.3 % (36.0-48.0); HEMOGLOBIN 10.7 g/dL (12-16); MCV 96.4 fL (80.0-100.0); RBC 3.35 10x6/uL (4.00-5.40)
--- NOTE | 2019-02-28 07:30 | NUR ---
RESTING,WITHOUT SIGNS OF DISTRESS.
[2019-02-28 09:10] VITALS: BP 150/90
--- NOTE | 2019-02-28 09:13 | NUR ---
PT SITTING UP IN BED IN THE LOWEST POSITION, SIDE RAILS UP X2, AND WATCHING TV. PT DENIES NEEDING ANYTHING AT THIS TIME. CONTINUE WITH PLAN OF CARE.
--- NOTE | 2019-02-28 10:28 | NUR ---
ADMINISTERED PT AM MEDS WITH PAIN MEDICATION, PT HAD 1/3 OF BREAKFAST AND IS NOW ASLEEP. PT FAMILY MEMBER AT BEDSIDE, NO NEEDS VOICED, BED IN LOW POSITION, CL IN REACH CONTINUE WITH PLAN OF CARE
[2019-02-28 12:10] VITALS: BP 158/94
--- NOTE | 2019-02-28 13:07 | NUR ---
DR. BAKER ORDER STAT ABG ON PATIENT DUE TO PATIENT INABILITY TO AROUSE. ATTEMPED TO GET ABG AND PATIENT WOKE UP AND BEGAN TO CRY/SCARE LOUDLY. PATIENT DOES NOT WANT ABG. AT THIS TIME PAITENT IS AWAKE AND TALKING ON THE PHONE. PATIENT IS STABLE 98% ON ROOM AIR, 76 HEART RATE.
[2019-02-28 17:43] VITALS: BP 193/102
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
== END 2019-02-28 18:38 | disposition home or self-care (01) | DRG 982 ==
LOC: D.ER 23:06 → D.MS 23:23 → OBSVTIME 23:23 → D.MS 23:23
PROVIDERS: Family Medicine; Internal Medicine Hematology & Oncology; Surgery; ADMIT Family Medicine; ATTEND Family Medicine
PROC: 05H633Z Insertion of Infusion Device into Left Subclavian Vein, Percutaneous Approach (ICD-10-PCS; 2019-02-26)
PROC: 0JH60WZ Insertion of Totally Implantable Vascular Access Device into Chest Subcutaneous Tissue and Fascia, Open Approach (ICD-10-PCS; principal; 2019-02-26 14:30)
DX: I95.9 Hypotension, unspecified (principal); C64.9 Malignant neoplasm of unspecified kidney, except renal pelvis; C79.51 Secondary malignant neoplasm of bone; N17.9 Acute kidney failure, unspecified; E03.9 Hypothyroidism, unspecified; I10 Essential (primary) hypertension; K21.9 Gastro-esophageal reflux disease without esophagitis; E06.3 Autoimmune thyroiditis; E86.0 Dehydration; D64.9 Anemia, unspecified; F41.8 Other specified anxiety disorders; D64.81 Anemia due to antineoplastic chemotherapy

== ENCOUNTER 2019-03-27 11:53 | Outpatient (CLI) | payer MEDICAID ==
[~2019-03-27] VITALS: Ht 162.6 cm; Wt 107.3 kg
--- NOTE | ~2019-03-27 | HEMODYNAMI ---
PATIENT:MADHURI MARLEY MEDICAL RECORD: [id number] : 56 LOCATION:[facility] ADMISSION DATE: 03/27/19 Generatedon:03/27/201915:15 Patient name: MADHURI MARLEY Patient #: [id number] SSN: D OB: 1960 Date of study: 03/27/2019 Page: Of Hemodynamic Procedure Report Patient Data Patient Demographics Procedure consent was obtained First Name: MADHURI Gender: Female Last Name: AYAKA : 1960 [facility] Initial: YOLANDA Age: 58 year(s) Patient #: [id number] Race: Unknown Additional ID: [id number] Contact details [address]: [address] [place] [address] State: [place] City: [place] Zip code: [address] Past Medical History Allergies Allergen Reaction Date Comments Reported Other allergy 03/27/2019 PCN,GEMFIBROZIL,CIPRO AND FENTANYL Admission Admission Data Admission Date: 03/27/2019 Admission Time: 11:53 Procedure Procedure Types Cath Procedure Peripheral Cath Diagnostic Procedure Abd/Extremity Extremities Bilat Lower Extremity Procedure Description Procedure Date Procedure Date: 03/27/2019 Procedure Start Time: 14:25 Procedure Staff Name Function Roberto Carrington MD Performing Physician Albino Ann RT Monitor Althea Pulido RT Scrub Chandrika Greenberg RN Nurse Procedure Data Cath Procedure Diagnostic catheters Device Type Used For End Catheter Placement Merit ULTRA BOLUS FLUSH Aortic Root 5Fr 65CM catheter Angiography ([id number]) Procedure Medications Medication Administration Route Dosage Heparin Flush Bag added to field 3 bags (1000units/500ml NS) Lidocaine 1% added to field 20 Versed I.V. 2 mg Versed I.V. 1 mg Benadryl I.V. 25 mg Hemodynamics Rest Heart Rate: 75 (bpm) Snapshots Pre Cath Intra NCS Post Cath Vital Signs Time Heart Resp SPO2 etCO2 NIBP (mmHg) Rhythm Pain Sedation Rate (ipm) (%) (mmHg) Status Level (bpm) 14:23:40 75 10 100 39 160/102(130) NSR 0 (11) 10(A) , No pain 14:27:36 77 6 99 32.2 163/99(137) NSR 0 (11) 10(A) , No pain 14:31:54 85 13 100 21 148/109(126) NSR 0 (11) 10(A) , No pain 14:36:08 75 11 98 22.5 157/101(133) NSR 0 (11) 10(A) , No pain 14:40:28 75 9 100 25.5 144/92(118) NSR 0 (11) 10(A) , No pain 14:44:42 78 13 100 38.2 149/91(114) NSR 0 (11) 10(A) , No pain 14:48:56 79 9 100 35.2 153/92(137) NSR 0 (11) 10(A) , No pain 14:53:16 79 14 99 18 140/76(109) NSR 0 (11) 10(A) , No pain 14:57:26 71 15 100 36 132/99(117) NSR 0 (11) 10(A) , No pain 15:01:34 69 19 99 31.4 147/100(128) NSR 0 (11) 10(A) , No pain 15:05:48 78 12 36.7 140/96(115) NSR 0 (11) 10(A) , No pain 15:10:00 79 11 38.2 141/106(123) NSR 0 (11) 10(A) , No pain 15:14:11 78 14 40.5 149/108(118) NSR 0 (11) 10(A) , No pain Medications Time Medication Route Dose Verified Delivered Reason Notes Effe ctiveness by by 14:30:40 Heparin Flush added 3 Roberto Mejia used for Bag to bags Carrington Carrington procedure (1000units/500ml field MD CARD NS) 14:30:52 Lidocaine 1% added 20ml Roberto Mejia for local to vial Carrington Carrington anesthetic field MD CARD 14:31:03 Versed I.V. 2 mg Roberto Cobos for Carrington Dionicio XIAO sedation 14:39:55 Versed I.V. 1 mg Roberto Cobos for Carringtonarmani Greenberg RN sedation 14:40:14 Benadryl I.V. 25 mg Roberto Cobos for Charissa Greenberg RN sedation Procedure Log Time Note 14:08:47 Albino Marissa RT (R) (CV) sent for patient. Start room use. 14:08:57 Time tracking: Regular hours (M-F 7:00 - 5:00) 14:09:05 Plan of Care:Hemodynamics will remain stable., Cardiac rhythm will remain stable., Comfort level will be maintained., Respiratory function will remain adequate., Patient/ family verbilizes understanding of procedure., Procedure tolerated without complication., Recovers from procedure without complications.. 14:09:14 Patient received from Outpatients to IR Alert and oriented. Tansferred to table in Supine position. 14:09:15 Correct patient and procedure confirmed by team. 14:09:17 ECG and BP/O2 sat monitors applied to patient. 14:09:18 Full Disclosure recording started 14:09:19 - 14:09:24 Use device set IR Diagnostic 14:09:26 Tegaderm 4 x 4 ([id number]) opened to sterile field. 14:09:26 Sterile Angiographic Pack opened to sterile field. 14:09:27 Bag Decanter (2001S) opened to sterile field. 14:09:28 ACIST Manifold (42978) opened to sterile field. 14:09:28 ACIST Syringe (66520) opened to sterile field. 14:09:29 ACIST Hand Control (26429) opened to sterile field. 14:09:35 Signed procedure consent form obtained from patient. 14:10:12 H&P Date Dictated: 03/27/2019 H&P Addendum completed by physician on day of procedure. (MUST COMPLETE FOR ALL OUTPATIENTS). 14:10:13 Pre-procedure instructions explained to patient. 14:10:14 Pre-op teaching completed and patient verbalized understanding. 14:10:15 Family in waiting room. 14:10:18 Patient NPO since Midnight. 14:11:43 Patient allergic to Other allergyPCN,GEMFIBROZIL,CIPRO AND FENTANYL 14:11:53 Is the patient allergic to Iodine/contrast media? No. 14:12:00 Is patient on blood thinner?No 14:12:03 Patient diabetic? No. 14:12:08 - 14:12:09 ----Pre-sedation anethsthesia assessment.---- 14:12:11 Previous problem with sedation/anesthesia? No ? 14:12:13 Snore? Yes 14:12:14 Sleep apnea? No 14:12:16 Deviated septum? No 14:12:17 Opens mouth fully? Yes 14:12:18 Sticks out tongue? Yes 14:12:20 Airway obstruction? No ? 14:12:23 Dentures? No ? 14:12:28 Pre procedure: right dorsailis pedis pulse Doppler 14:12:32 Pre procedure: right posterior tibial pulse Doppler 14:12:35 Pre procedure: left dorsailis pedis pulse 1+ Palpable, but thready & weak; easily obliterated 14:12:40 Pre procedure: left posterior tibial pulse 1+ Palpable, but thready & weak; easily obliterated 14:20:12 Patient pain scale 0/10 NO PAIN. 14:20:22 IV patent on arrival in left hand with 0.45%NaCl at [facility]. 14:20:27 Right groin area was prepped with chlora-prep and draped in sterile fashion 14:20:29 Alarms reviewed by R. N. 14:20:30 Sharps counted by scrub and verified by R.N. 14:24:23 Physician arrived 14:24:23 --------ALL STOP TIME OUT------ 14:24:24 Final Timeout: patient, procedure, and site verified with staff and physician. All members of the team are in agreement. 14:24:26 Right groin site verified by team. 14:24:30 Fire Safety Assessment: A--An alcohol-based skin anteseptic being used preoperatively., C--Open oxygen or nitrous oxide is being used. 14:24:48 Sedation plan: IV Moderate Sedation Medication:Versed 14:25:09 3b) 30-44 Moderately reduced kidney function. 14:25:49 Procedure started. 14:25:55 Local anesthetic to right femoral artery with Lidocaine 1% by Roberto Carrington MD.INITIAL ACCESS ONLY 14:: Baseline sample Acquired. :: Vital chart was started 14::54 DOC .035 wire ([id number]) opened to sterile field. 14:26:56 PERCUTANEOUS ENTRY 19GA needle opened to sterile field. 14:26:57 SHEATH 5FR [place] (QYD561) opened to sterile field. 14:27:00 A InfoDif ULTRA BOLUS FLUSH 5Fr 65CM catheter ([id number]) was advanced over the wire and used for Aortic Root Angiography. 14:30:40 Heparin Flush Bag (1000units/500ml NS) 3 bags added to field was administered by Roberto Carrington MD; used for procedure; 14:30:52 Lidocaine 1% 20ml vial added to field was administered by Roberto Carrington MD; for local anesthetic; 14:31:03 Versed 2 mg I.V. was administered by Chandrika Greenberg RN; for sedation; 14:39:55 Versed 1 mg I.V. was administered by Chandrika Greenberg RN; for sedation; 14:40:14 Benadryl 25 mg I.V. was administered by Chandrika Greenberg RN; for sedation; 15:03:06 DOCTOR UNABLE TO GET ACCESS PROCEDURE ABORTED 15:03:57 Procedure ended.(Physican Out) 15:14:36 Sharps counted by scrub and verified by R.N. 15:14:40 Insertion/operative site no bleeding no hematoma. 15:14:43 Post-op/insertion site Right Femoral artery dressed using a 4 x 4 and Tegaderm. 15:14:47 Post right femoral artery:stable 15:14:49 Post Procedure Pulses reassessed and unchanged 15:14:54 Procedure and supply charges have been captured, reviewed, submitted an d are correct. 15:15:03 Report given to Outpatients. 15:15:12 Patient transfered to Outpatients with Stretcher. 15:15:52 Vital chart was stopped Device Usage Item Name Manufacture Quantity Catalog Number Hospital Part Current Wa nimal Lot# / Charge Number Stock Stock Serial# Code Tegaderm 4 x 4 3M 1 1626W [id number] [id number] 5 (1626W) Sterile Cardinal 1 [id number] 210679 967544 5 Angiographic Health Pack Bag Decanter Microtek 1 2001S 829937 23672 186126 5 (2001S) Medical Inc. ACIST Manifold Acist 1 42423 252919 228250 513537 5 (84083) Medical Systems Inc ACIST Syringe Acist 1 00551 189100 045778 581737 20 (19256) Medical Systems Inc ACIST Hand Acist 1 68008 626716 035107 796646 5 Control Medical (76966) Systems Inc DOC .035 wire Cook Medical 1 F34381 327754 724746 5 (Z75338) PERCUTANEOUS Cook Medical 1 U95814 154049 379529 5 4068265 ENTRY 19GA needle SHEATH 5FR Terumo 1 XGJ480 883962 944111 209438 5 Quemado (XOW875) Merit ULTRA Merit 1 [id number] 711689 512941 5 BOLUS FLUSH Medical 5Fr 65CM catheter ([id number]) Signature Audit [place] Stage Time Signature Unsigned Intra-Procedure 03/27/2019 Albino 3:15:47 PM [place] RT (R) (CV) Signatures Monitor : Albino Signature : Marissa RT Date : Time : [address] [place] [address]
[2019-03-27 12:24] LABS: LYMPHOCYTES 29.2 % (15-50); MCH 30.8 pg (26.0-34.0); MCHC 32.4 g/dL (31.0-37.0); MCV 95.1 fL (80.0-100.0); MEAN PLATELET VOLUME 7.3 fL (7.4-10.4); NEUTROPHILS 62.9 % (40-80); PLATELET COUNT 234 10x3/uL (130-400); RBC 3.89 10x6/uL (4.00-5.40); RDW 16.4 % (11.5-14.5); WBC 5.4 10x3/uL (4.8-10.8)
[2019-03-27 12:36] LABS: ANION GAP 14.7 mmol/L (8-16); APTT 37.2 SECONDS (22.8-39.4); CALCIUM 9.4 mg/dL (8.5-10.1); CARBON DIOXIDE 25.4 mmol/L (21.0-32.0); CREATININE - SERUM 1.7 mg/dL (0.6-1.3); INR 1.09 (0.85-1.17); POTASSIUM - SERUM 4.1 mmol/L (3.5-5.1); PROTIME 13.6 SECONDS (11.6-15.0)
[2019-03-27] MEDS ORDERED: LEVOTHYROXINE75 MCG PO (12:41)
[2019-03-27] MEDS ORDERED: OXYCODONE HCL E20 MG PO (12:43)
[2019-03-27] MEDS ORDERED: HYDROCODON-ACE1 EA10 PO (12:44)
[2019-03-27] MEDS ORDERED: KEYTRUDA (12:45)
[2019-03-27] MEDS ORDERED: INLYTA 5 MG (12:45)
[2019-03-27 12:54] VITALS: Ht 162.6 cm; Wt 107.3 kg
--- NOTE | 2019-03-27 17:23 | NUR ---
PT DC INSTRUCTIONS REVIEWED AT THIS TIME, PT VERBALIZES UNDERSTANDING. PT IV REMOVED AT THIS TIME, INTACT, NO REDNESS OR SWELLING NOTED AT SITE.
--- NOTE | 2019-03-27 17:30 | NUR ---
PT LEAVING OPS UNIT AT THIS TIME VIA WC. NAD NOTED.
== END 2019-03-27 17:30 | disposition home or self-care (01) ==
LOC: D.OPS 11:53 → D.RAD 11:53 → D.OPS 17:30
PROVIDERS: Specialist; ATTEND Family Medicine
DX: I73.9 Peripheral vascular disease, unspecified (principal); Z53.9 Procedure and treatment not carried out, unspecified reason; Z01.812 Encounter for preprocedural laboratory examination

== ENCOUNTER 2019-04-13 10:23 | Outpatient (CLI) | payer MEDICAID ==
[~2019-04-13] VITALS: Ht 162.6 cm; Wt 104.5 kg
[~2019-04-13 10:23] MED LIST changes: +HYDROCODON-ACE1 EA10 PO; +INLYTA 5 MG; +KEYTRUDA; +LEVOTHYROXINE75 MCG PO; +OXYCODONE HCL E20 MG PO
[2019-04-13 11:17] LABS: BASOPHILS 0.3 % (0-2); EOSINOPHILS 7.9 % (0-7); HEMATOCRIT 34.7 % (36.0-48.0); HEMOGLOBIN 11.4 g/dL (12-16); IMMATURE GRANULOCYTES 0.6 % (0-5); LYMPHOCYTES 27.2 % (15-50); MCH 31.1 pg (26.0-34.0); MCHC 32.9 g/dL (31.0-37.0); MCV 94.6 fL (80.0-100.0); MEAN PLATELET VOLUME 8.1 fL (7.4-10.4); MONOCYTES 10.3 % (2-11); NEUTROPHILS 53.7 % (40-80); PLATELET COUNT 228 10x3/uL (130-400); RBC 3.67 10x6/uL (4.00-5.40); RDW 17.1 % (11.5-14.5); WBC 6.9 10x3/uL (4.8-10.8)
[2019-04-13] MEDS ORDERED: PLAVIX75 MG PO (11:23)
[2019-04-13 11:24] LABS: ANION GAP 13.9 mmol/L (8-16); CALCIUM 8.7 mg/dL (8.5-10.1); CARBON DIOXIDE 26.3 mmol/L (21.0-32.0); CREATININE - SERUM 1.5 mg/dL (0.6-1.3); POTASSIUM - SERUM 3.2 mmol/L (3.5-5.1)
[2019-04-13 11:32] VITALS: Ht 162.6 cm; Wt 104.5 kg
--- NOTE | 2019-04-13 13:05 | NUR ---
POX-97% DECREASED O2 TO 1L.
--- NOTE | 2019-04-13 13:26 | NUR ---
TURNED O2 OFF TO RA POX-97%
--- NOTE | 2019-04-13 13:55 | NUR ---
DISCHARGE INSTRUCTIONS REVIEWED WITH PATIENT. RIGHT HAND PIV DC'D WITH TIP INTACT. DISCHARGED HOME VIA WHEELCHAIR TO PRIVATE VEHICLE WITH MOTHER
== END 2019-04-13 13:55 | disposition home or self-care (01) ==
LOC: D.MRI 10:23
PROVIDERS: Anesthesiology; ATTEND Family Medicine
DX: M25.532 Pain in left wrist (principal)

== ENCOUNTER 2019-06-04 08:00 | Outpatient (CLI) | payer MEDICAID ==
[2019-04-13 11:32] VITALS: BMI 39.5
[~2019-06-04 08:00] MED LIST changes: -INLYTA 5 MG; +INLYTA 5 MG PO; +PLAVIX75 MG PO
== END 2019-06-04 23:59 | disposition home or self-care (01) ==
LOC: D.MAMMO 08:00
PROVIDERS: ATTEND Family Medicine
DX: N63.20 Unspecified lump in the left breast, unspecified quadrant (principal)

== ENCOUNTER 2019-06-25 14:03 | Inpatient (IN) | payer MEDICAID ==
[~2019-06-25] VITALS: Ht 162.6 cm; Wt 95.7 kg
[2019-06-25] MEDS ORDERED: CELEXA20 MG PO (14:15)
[2019-06-25 15:21] LABS: BASOPHILS 0.3 % (0-2); EOSINOPHILS 3.4 % (0-7); HEMATOCRIT 43.1 % (36.0-48.0); HEMOGLOBIN 13.1 g/dL (12-16); IMMATURE GRANULOCYTES 0.5 % (0-5); LYMPHOCYTES 24.2 % (15-50); MCH 27.1 pg (26.0-34.0); MCHC 30.4 g/dL (31.0-37.0); MCV 89.2 fL (80.0-100.0); MEAN PLATELET VOLUME 8.5 fL (7.4-10.4); MONOCYTES 7.3 % (2-11); NEUTROPHILS 64.3 % (40-80); RBC 4.83 10x6/uL (4.00-5.40); RDW 17.4 % (11.5-14.5)
[2019-06-25 15:22] LABS: PLATELET COUNT 375 10x3/uL (130-400)
[2019-06-25 15:27] LABS: ANION GAP 12.9 mmol/L (8-16); CALCIUM 8.9 mg/dL (8.5-10.1); CARBON DIOXIDE 27.7 mmol/L (21.0-32.0); CREATININE - SERUM 1.3 mg/dL (0.6-1.3); POTASSIUM - SERUM 3.6 mmol/L (3.5-5.1)
[2019-06-25 15:32] LABS: APPEARANCE CLEAR (CLEAR); BILIRUBIN NEGATIVE (NEGATIVE); COLOR YELLOW (YELLOW); GLUCOSE NEGATIVE (NEGATIVE); KETONE NEGATIVE (NEGATIVE); NITRITE NEGATIVE (NEGATIVE); PROTEIN TRACE mg/dL (NEGATIVE); SPECIFIC GRAVITY 1.015 (1.005-1.020); UROBILINOGEN NORMAL (NORMAL)
[2019-06-25 15:33] LABS: BACTERIA MODERATE /hpf (NEGATIVE); EPITHELIAL CELLS OCC /hpf (0-5); RED CELLS - URINE OCC /hpf (0-5); WHITE CELLS - URINE 0-5 /hpf (NEGATIVE)
[2019-06-25 15:33] LABS: ALBUMIN 2.7 g/dL (3.4-5.0); BILIRUBIN - TOTAL 0.42 mg/dL (0.2-1.3); PROTEIN - SERUM 8.5 g/dL (6.4-8.2)
--- NOTE | 2019-06-25 16:29 | NUR ---
FAMILY IS AT BEDSIDE
--- NOTE | 2019-06-25 16:32 | NUR ---
PT REPORTS SHE HAS RODS AND SCREWS IN HER BACK AND WILL NOT BE ABLE TO LIE BACK WITHOUT SEDATION FOR CT
[2019-06-25 16:55] VITALS: BP 135/94
--- NOTE | 2019-06-25 19:06 | NUR ---
bedside report handed off from herberth gamble via sbar.
[2019-06-25 19:12] VITALS: BP 132/76
--- NOTE | 2019-06-25 21:02 | NUR ---
REC'D TO ROOM 2220 FROM ER DEPT PER WC A 58 Y/O WHITE FE PER SERVICES DR. JIN WITH DX ABDOMINAL PAIN. DILAUDID SALES ASSOCIATE FISHING SET UP WITH SETTINGS AT 0.2MG Q10 MIN. W.4MG Q4HR L/O. INSTRUCTED PATIENT ON USEAGE.IV OF NS PATENT LEFT HAND WITH NS AT 125CC'S/HR. SITE CLEAR.
[2019-06-25 22:13] VITALS: BP 148/78
[2019-06-25 23:53] VITALS: BP 148/98; BMI 36.3
--- NOTE | 2019-06-26 | NUR ---
EYES CLOSED RESPIRATIONS WITHJ EASE AND UNLABORED.
[2019-06-26 01:21] VITALS: BP 148/62
--- NOTE | 2019-06-26 03:19 | NUR ---
RESTING QUIETLY DENIES NEEDS.
[2019-06-26 05:34] VITALS: BP 143/68
[2019-06-26 07:03] LABS: BASOPHILS 0.3 % (0-2); EOSINOPHILS 3.8 % (0-7); HEMATOCRIT 36.7 % (36.0-48.0); HEMOGLOBIN 10.9 g/dL (12-16); IMMATURE GRANULOCYTES 0.6 % (0-5); LYMPHOCYTES 21.6 % (15-50); MCH 26.8 pg (26.0-34.0); MCHC 29.7 g/dL (31.0-37.0); MCV 90.4 fL (80.0-100.0); MEAN PLATELET VOLUME 8.2 fL (7.4-10.4); MONOCYTES 8.1 % (2-11); NEUTROPHILS 65.6 % (40-80); PLATELET COUNT 305 10x3/uL (130-400); RBC 4.06 10x6/uL (4.00-5.40); RDW 17.3 % (11.5-14.5)
[2019-06-26 07:12] LABS: APTT 44.3 SECONDS (22.8-39.4); INR 1.25 (0.85-1.17); PROTIME 15.2 SECONDS (11.6-15.0)
[2019-06-26 07:20] LABS: ALBUMIN 2.3 g/dL (3.4-5.0); ANION GAP 11.5 mmol/L (8-16); BILIRUBIN - TOTAL 0.37 mg/dL (0.2-1.3); CALCIUM 8.1 mg/dL (8.5-10.1); CARBON DIOXIDE 26.4 mmol/L (21.0-32.0); CREATININE - SERUM 1.1 mg/dL (0.6-1.3); MAGNESIUM - SERUM 2.2 mg/dL (1.8-2.4); PHOSPHOROUS 2.9 mg/dL (2.5-4.9); POTASSIUM - SERUM 3.9 mmol/L (3.5-5.1); THYROID STIMULATING HORMONE 3.49 uIU/mL (0.36-3.74)
[2019-06-26 07:25] LABS: WBC 7.9 10x3/uL (4.8-10.8)
[2019-06-26 07:31] LABS: APPEARANCE CLEAR (CLEAR); BILIRUBIN NEGATIVE (NEGATIVE); COLOR YELLOW (YELLOW); GLUCOSE NEGATIVE (NEGATIVE); KETONE NEGATIVE (NEGATIVE); NITRITE NEGATIVE (NEGATIVE); PROTEIN NEGATIVE (NEGATIVE); UROBILINOGEN NORMAL (NORMAL)
[2019-06-26 08:22] VITALS: BP 127/71
--- NOTE | 2019-06-26 09:38 | NUR ---
PT IN BED REQUESTED NEW MATTRESS, CALLED EVS AND SPOKE TO Francisca OCHOA NO OTHER NEEDS WILL CONTINUE WITH PLAN OF CARE
--- NOTE | 2019-06-26 11:46 | MORECARE ---
CASE MANAGEMENT DISCHARGE SUMMARY PATIENT: MADHURI MARLEY UNIT: [id number] ADM DATE: 06/25/19 AGE: 58 : 56 SEX: F ROOM/BED: D.2220 AUTHOR: LINDA LAYNE PHYSICIAN: REFERRING PHYSICIAN: FORREST JIN DO DATE OF SERVICE: 06/26/19 Discharge Plan Patient Name: MADHURI MARLEY Facility: [facility]:[place] : 1960 Planned Disposition: Home Anticipated Discharge Date: 06/28/19 Discharge Date: Expected LOS: 3 Initial Reviewer: [email or web address] Initial Review Date: 06/25/2019 Generated: 06/26/19 12:45 pm Patient Name: MADHURI MARLEY Page 80345 at 1146 All edits/amendments must be made on the electronic document DICTATION DATE: 06/26/19 1145 HOSE SUSPENDER CUTTER: ALFRED 06/26/19 1145 RPT#: [id number] DC DATE: STATUS: ADM IN [facility] [address] [place] [address] END OF REPORT
--- NOTE | 2019-06-26 11:53 | MORECARE ---
CASE MANAGEMENT DISCHARGE SUMMARY PATIENT: MADHURI MELGAR UNIT: [id number] ADM DATE: 06/25/19 AGE: 58 : 56 SEX: F ROOM/BED: D.2220 AUTHOR: LINDA LAYNE PHYSICIAN: REFERRING PHYSICIAN: FORREST JIN DO DATE OF SERVICE: 06/26/19 Discharge Plan Patient Name: MADHURI MELGAR Facility: [facility]:[place] : 1960 Planned Disposition: Home Anticipated Discharge Date: 06/28/19 Discharge Date: Expected LOS: 3 Initial Reviewer: [email or web address] Initial Review Date: 06/25/2019 Generated: 06/26/19 12:53 pm DCP- Discharge Planning Updated by [email or web address]: Elizabeth Sanchez on 06/26/19 10:[address] DC PLAN: Return home with . ANTICIPATED DC NEEDS: Denied known dc needs during assessment. CM met with patient to complete initial dc planning assessment. CM educated patient on the CM role and verbal consent given by patient to complete assessment. CM verified patient's address, phone number, and emergency contact phone numbers. Patient lives at home with her . At discharge patient plans to return home and feels this is a safe discharge. Patient stated she was able to care for herself but requires assistance with cooking and transportation. She stated she can't stand for long periods of time and she no longer is able to drive. CM discussed availability of home health, rehab services, and medical equipment. Patient denied known discharge needs at this time. Patient reports her will transport her home at time of discharge. CM will continue to follow and will assist as needed with dc plans/needs. Elizabeth Sanchez RN, [facility] DCPIA - Discharge Planning Initial Assessment Updated by [email or web address]: Elizabeth Sanchez on 06/26/19 11:47 am * Is the patient Alert and Oriented? Yes * How many steps to enter\exit or inside your home? Ramp * PCP Dr. Silver * Pharmacy [facility] * Preadmission Environment Home with Family * ADLs Partial Dependent * Partial ADLs (Assistance needed) Dressing * Equipment Rolling Walker Shower Chair Wheelchair * Other Equipment Blood Pressure machine * List name and contact numbers for known caregivers / representatives who currently or will assist patient after discharge: Reese Melgar - spouse - [phone] Myrna Wilkins - Mother - [phone] * Verbal permission to speak to the caregivers and representatives has been obtained from the patient. Yes * Community resources currently utilized None * Additional services required to return to the preadmission environment? No * Can the patient safely return to the preadmission environment? Yes * Has this patient been hospitalized within the prior 30 days at any hospital? No Last DP export: 06/26/19 10:46 Patient Name: MADHURI MELGAR Page 13644 at 1153 All edits/amendments must be made on the electronic document DICTATION DATE: 06/26/19 115 ACCOUNTS OFFICER: ALFRED 06/26/19 115 RPT#: [id number] DC DATE: STATUS: ADM IN [facility] [address] [place] [address] END OF REPORT
[2019-06-26 12:37] VITALS: BP 106/65
[2019-06-26 13:39] VITALS: BMI 36.2
--- NOTE | 2019-06-26 15:34 | NUR ---
REQUEST AT 1530 / PT NOT NPO PER NURSE CIERRA. ASKED THAT A SIGN BE PUT ON DOOR WITH PT NPO AT MIDNIGHT. SCAN WILL BE DONE IN AM. MARIA ISABEL BAUMANN
[2019-06-26 16:02] VITALS: BP 167/89
--- NOTE | 2019-06-26 16:56 | NUR ---
PT IS WITHOUT SIGNS OF DISTRESS.MONITOR FOR NEEDS
--- NOTE | 2019-06-26 20:45 | NUR ---
A&O X 4. REPORTS ADEQUATE PAIN CONTROL WITH MANAGER INFRASTRUCTURE. SKIN IS PALE, PT REPORTS WEAKNESS UPON AMBULATING. INFORMED TO ASK FOR HELP PRIOR TO AMBULATING. DENIES FURTHER NEEDS, WILL CONTINUE TO MONITOR.
[2019-06-26 21:26] VITALS: BP 174/90
[2019-06-27] VITALS (7 sets, daily range): BP systolic 142–199; BP diastolic 77–99
--- NOTE | 2019-06-27 04:04 | NUR ---
I have reviewed this patient and I concur with the Shift Assessment completed by the Licensed Practical Nurse today this shift.
[2019-06-27 06:52] LABS: BASOPHILS 0 % (0-2); EOSINOPHILS 0.1 % (0-7); HEMATOCRIT 36.3 % (36.0-48.0); HEMOGLOBIN 11.1 g/dL (12-16); LYMPHOCYTES 16.6 % (15-50); MCH 27.1 pg (26.0-34.0); MCHC 30.6 g/dL (31.0-37.0); MCV 88.8 fL (80.0-100.0); MEAN PLATELET VOLUME 8.3 fL (7.4-10.4); NEUTROPHILS 78.3 % (40-80); PLATELET COUNT 319 10x3/uL (130-400); RBC 4.09 10x6/uL (4.00-5.40); RDW 17.4 % (11.5-14.5); WBC 8.9 10x3/uL (4.8-10.8)
[2019-06-27 07:27] LABS: CALCIUM 8.3 mg/dL (8.5-10.1); CARBON DIOXIDE 24.4 mmol/L (21.0-32.0); MAGNESIUM - SERUM 2.2 mg/dL (1.8-2.4); PHOSPHOROUS 2.2 mg/dL (2.5-4.9); POTASSIUM - SERUM 4.4 mmol/L (3.5-5.1)
--- NOTE | 2019-06-27 07:45 | NUR ---
BEDSIDE REPORT RECIEVED ASSUMED CARE. PATIENT IN BED WITH IV INTACT. NO COMPLAINTS. CALL LIGHT WITHIN REACH.
--- NOTE | 2019-06-27 11:00 | NUR ---
PATIENT IN BED WITH IV INTACT. FAMILY AT BEDSIDE. CALL LIGHT WITHIN REACH. STATED HEADACHE IS A LITTLE BETTER AT THIS TIME.
--- NOTE | 2019-06-27 18:25 | NUR ---
PATIENT RECIEVED BOLUS 0.4 MG DILAUDID BY PROPERTY MAN. STATED HAVING PAIN IN STOMACH. FAMILY AT BEDSIDE. CALL LIGHT WITHIN REACH.
--- NOTE | 2019-06-27 23:30 | NUR ---
PICC DRESSING CHANGED. PT EXPERIENCING SOME INCREASE IN REDNESS AROUND SITE. JOON BOSCH NOTIFIED. WILL CONTINUE TO MONITOR.
[2019-06-28 05:12] VITALS: BP 124/81
[2019-06-28 07:17] LABS: ANION GAP 13.7 mmol/L (8-16); CALCIUM 8.6 mg/dL (8.5-10.1); CARBON DIOXIDE 25.7 mmol/L (21.0-32.0); CREATININE - SERUM 1.1 mg/dL (0.6-1.3); MAGNESIUM - SERUM 2.1 mg/dL (1.8-2.4)
[2019-06-28 07:19] LABS: PHOSPHOROUS 3.4 mg/dL (2.5-4.9); POTASSIUM - SERUM 3.4 mmol/L (3.5-5.1)
--- NOTE | 2019-06-28 07:45 | NUR ---
PT RESTING IN BED. NO SIGNS OF DISTRESS. LEFT CHEST PORT PATENT NO REDNESS OR TENDERNESS. HAS RED STREAK TO LEFT ARM. WILL MONITOR. DENIES ANY FURTHER NEED AT THIS TIME. CALL LIGHT IN REACH. BED LOW POSITION. FAMILY AT BEDSIDE.
--- NOTE | 2019-06-28 08:00 | NUR ---
PT IS WITHOUT NEEDS.FAMILY AT BEDSIDE
[2019-06-28 08:08] VITALS: BP 178/88
[2019-06-28 08:41] LABS: BASOPHILS 0.1 % (0-2); EOSINOPHILS 1.2 % (0-7); HEMATOCRIT 33.5 % (36.0-48.0); HEMOGLOBIN 9.9 g/dL (12-16); IMMATURE GRANULOCYTES 1.2 % (0-5); MCH 26.7 pg (26.0-34.0); MCHC 29.6 g/dL (31.0-37.0); MCV 90.3 fL (80.0-100.0); MEAN PLATELET VOLUME 8.2 fL (7.4-10.4); MONOCYTES 7.9 % (2-11); NEUTROPHILS 59.6 % (40-80); PLATELET COUNT 299 10x3/uL (130-400); RBC 3.71 10x6/uL (4.00-5.40); RDW 17.6 % (11.5-14.5); WBC 7.8 10x3/uL (4.8-10.8)
[2019-06-28 11:20] VITALS: BP 154/96
[2019-06-28 16:29] VITALS: BP 164/76
--- NOTE | 2019-06-28 18:41 | NUR ---
ALERT AND ORIENTED, SITTING UP IN BED. NO C/O PAIN. NO S/S OF ACUTE DISTRESS NOTED. DENIES ANY NEEDS AT THIS TIME. CALL LIGHT IN REACH. WILL CONTINUE TO MONITOR.
--- NOTE | 2019-06-28 20:00 | NUR ---
A&O X 4. REPORTS MILD PAIN AND LEFT EAR ACHE. ALSO REPORTS A LOOSE BM. PAIN 3-12/06. FAMILY AT BEDSIDE. DENIES NEEDS AT THIS TIME
[2019-06-28 20:19] VITALS: BP 164/97
[2019-06-29] VITALS: BP 162/98
--- NOTE | 2019-06-29 03:47 | NUR ---
I have reviewed this patient and I concur with the Shift Assessment completed by the Licensed Practical Nurse today this shift.
[2019-06-29 04:00] VITALS: BP 191/95
[2019-06-29 06:56] LABS: BASOPHILS 0.1 % (0-2); EOSINOPHILS 2.9 % (0-7); HEMATOCRIT 36.9 % (36.0-48.0); IMMATURE GRANULOCYTES 1.4 % (0-5); LYMPHOCYTES 32.5 % (15-50); MCHC 29.8 g/dL (31.0-37.0); MCV 90.4 fL (80.0-100.0); MEAN PLATELET VOLUME 8.4 fL (7.4-10.4); MONOCYTES 6.6 % (2-11); NEUTROPHILS 56.5 % (40-80); PLATELET COUNT 311 10x3/uL (130-400); RBC 4.08 10x6/uL (4.00-5.40); RDW 17.6 % (11.5-14.5); WBC 7.8 10x3/uL (4.8-10.8)
[2019-06-29 07:09] LABS: ANION GAP 10.6 mmol/L (8-16); CALCIUM 8.7 mg/dL (8.5-10.1); CARBON DIOXIDE 27.7 mmol/L (21.0-32.0); CREATININE - SERUM 1.2 mg/dL (0.6-1.3); PHOSPHOROUS 2.6 mg/dL (2.5-4.9)
[2019-06-29 07:10] LABS: POTASSIUM - SERUM 4.3 mmol/L (3.5-5.1)
--- NOTE | 2019-06-29 07:43 | NUR ---
PT RESTING IN BED. NO SIGNS OF DISTRESS. IV TO LEFT CHEST PORT PATENT NO REDNESS OR TENDERNESS. DENIES ANY FURTHER NEED AT THIS TIME. CALL LIGHT IN REACH. BED LOW POSITION. FAMILY AT BEDSIDE AT THIS TIME.
[2019-06-29 08:12] VITALS: BP 156/82
[2019-06-29 13:26] VITALS: BP 148/79
[2019-06-29 16:13] VITALS: BP 156/94
[2019-06-29 19:53] VITALS: BP 175/99
--- NOTE | 2019-06-29 23:38 | NUR ---
PT C/O ITCHING AT PORT DRESSING SITE AND BACK PAIN 04/07. GAVE BENADRYL 25 MG IV PUSH AND OXY IR 15 MG PO. NO OTHER NEEDS. WILL RESSESS AND CONTIUE TO MONITOR.
[2019-06-30] VITALS: BP 151/91
--- NOTE | 2019-06-30 03:44 | NUR ---
BP 183/100 - GAVE APRESOLINE 10 MG IV PUSH. NO OTHER NEEDS. WILL REASSESS AND CONTINUE TO MONITOR.
[2019-06-30 04:00] VITALS: BP 183/100
[2019-06-30 06:23] LABS: BASOPHILS 0.2 % (0-2); HEMATOCRIT 36.5 % (36.0-48.0); HEMOGLOBIN 10.9 g/dL (12-16); IMMATURE GRANULOCYTES 1.2 % (0-5); LYMPHOCYTES 27.7 % (15-50); MCH 26.8 pg (26.0-34.0); MCHC 29.9 g/dL (31.0-37.0); MCV 89.9 fL (80.0-100.0); MEAN PLATELET VOLUME 8.4 fL (7.4-10.4); MONOCYTES 7.1 % (2-11); NEUTROPHILS 57.8 % (40-80); PLATELET COUNT 281 10x3/uL (130-400); RBC 4.06 10x6/uL (4.00-5.40); RDW 17.6 % (11.5-14.5); WBC 8.5 10x3/uL (4.8-10.8)
[2019-06-30 06:53] LABS: CALCIUM 8.3 mg/dL (8.5-10.1); CARBON DIOXIDE 25.6 mmol/L (21.0-32.0); CREATININE - SERUM 1.2 mg/dL (0.6-1.3); MAGNESIUM - SERUM 1.7 mg/dL (1.8-2.4); PHOSPHOROUS 2.7 mg/dL (2.5-4.9); POTASSIUM - SERUM 3.6 mmol/L (3.5-5.1)
[2019-06-30 08:12] VITALS: BP 132/80
--- NOTE | 2019-06-30 09:20 | NUR ---
PT LYING IN BED WITH FAMILY AT BEDSIDE, PT STATES SHE HAS HAD A NOSE BLEED THIS MORNING AND LAST NIGHT THINKS IT IS DUE TO NEW MEDICATION ADVISED PT I WILL RELAY MESSAGE TO DOCTORS, PT STATES PAIN IS STILL AT AN 8 WILL CONTINUE WITH PLAN OF CARE
--- NOTE | 2019-06-30 11:00 | NUR ---
I have reviewed this patient and I concur with the Shift Assessment completed by the Licensed Practical Nurse today this shift.
[2019-06-30 13:33] VITALS: BP 174/108
[2019-06-30 16:23] VITALS: BP 154/99
--- NOTE | 2019-06-30 18:21 | NUR ---
PT STATES HAVING CP AND UNSURE IF ACID REFLUX OR HEART REQUESTED A MONITOR AND STATED SHE WOULD WEAR ONE WITH DR PATTERSON ORDERS FROM TIME TO TIME. ORDERED TELEMETRY FOR PT
[2019-06-30 19:49] VITALS: BP 152/97
[2019-07-01] VITALS: BP 175/105
[2019-07-01 04:00] VITALS: BP 147/88
[2019-07-01 06:34] LABS: BASOPHILS 0.2 % (0-2); HEMATOCRIT 36.6 % (36.0-48.0); HEMOGLOBIN 10.8 g/dL (12-16); IMMATURE GRANULOCYTES 0.6 % (0-5); LYMPHOCYTES 26.2 % (15-50); MCH 26.5 pg (26.0-34.0); MCHC 29.5 g/dL (31.0-37.0); MCV 89.7 fL (80.0-100.0); MEAN PLATELET VOLUME 8.7 fL (7.4-10.4); PLATELET COUNT 269 10x3/uL (130-400); RBC 4.08 10x6/uL (4.00-5.40); RDW 17.9 % (11.5-14.5)
[2019-07-01 07:03] LABS: ANION GAP 12.7 mmol/L (8-16); CALCIUM 8.2 mg/dL (8.5-10.1); CARBON DIOXIDE 25.9 mmol/L (21.0-32.0); CREATININE - SERUM 1.4 mg/dL (0.6-1.3); MAGNESIUM - SERUM 1.8 mg/dL (1.8-2.4); PHOSPHOROUS 3.3 mg/dL (2.5-4.9); POTASSIUM - SERUM 3.6 mmol/L (3.5-5.1)
[2019-07-01 08:09] VITALS: BP 126/83
[2019-07-01 12:28] VITALS: BP 109/75
--- NOTE | 2019-07-01 15:56 | NUR ---
I have reviewed this patient and I concur with the Shift Assessment completed by the Licensed Practical Nurse today this shift.
[2019-07-01 16:54] VITALS: BP 147/89
[2019-07-01 20:47] VITALS: BP 132/80
[2019-07-02 00:58] VITALS: BP 154/75
--- NOTE | 2019-07-02 03:36 | NUR ---
PT HAVING EXPLOSIVE LOOSE STOOL. TWO TIMES MISSED THE TOILET THIS SHIFT. RADIATOR MECHANIC CLEANED PT AND CHANGED GOWN. GAVE SECOND DOSE OF LOMOTIL JUST NOW. WILL REASSESS AND CONTINUE TO MONITOR.
[2019-07-02 05:55] VITALS: BP 130/72
[2019-07-02 07:00] LABS: BASOPHILS 0.3 % (0-2); EOSINOPHILS 5.5 % (0-7); HEMATOCRIT 35.3 % (36.0-48.0); HEMOGLOBIN 10.6 g/dL (12-16); LYMPHOCYTES 23.6 % (15-50); MCH 26.8 pg (26.0-34.0); MCV 89.1 fL (80.0-100.0); MEAN PLATELET VOLUME 8.7 fL (7.4-10.4); NEUTROPHILS 62.6 % (40-80); PLATELET COUNT 251 10x3/uL (130-400); RBC 3.96 10x6/uL (4.00-5.40); RDW 17.4 % (11.5-14.5); WBC 8.9 10x3/uL (4.8-10.8)
[2019-07-02 07:08] LABS: ALBUMIN 2.4 g/dL (3.4-5.0); ANION GAP 12.1 mmol/L (8-16); BILIRUBIN - TOTAL 0.31 mg/dL (0.2-1.3); CALCIUM 8.9 mg/dL (8.5-10.1); CARBON DIOXIDE 26.6 mmol/L (21.0-32.0); CREATININE - SERUM 1.3 mg/dL (0.6-1.3); POTASSIUM - SERUM 3.7 mmol/L (3.5-5.1); PROTEIN - SERUM 6.7 g/dL (6.4-8.2)
--- NOTE | 2019-07-02 08:15 | NUR ---
ALERT AND ORIENTED. LUNGS CLEAR BILATERALLY. HEART SOUNDS S1 AND S2 HEARD IN ALL LOBO. BOWEL SOUNDS ACTIVE X 4. BUTTOCKS PINK BLANCHABLE. BUTT PASTE AND BARRIER SPRAY GIVEN PER REQUEST. LEFT CHEST PORT PATENT WITHOUT REDNESS. SKIN OTHERWISE INTACT WITHOUT REDNESS. BED LOW. CALL FULLER AND PERSONAL ITEMS IN REACH. WILL CONTINUE TO MONITOR.
[2019-07-02 08:51] VITALS: BP 129/79
--- NOTE | 2019-07-02 10:20 | NUR ---
RESTING IN BED. DENIES NEEDS. WILL CONTINUE TO MONITOR.
[2019-07-02 12:30] VITALS: BP 139/89
--- NOTE | 2019-07-02 13:24 | NUR ---
RESTING IN BED. DENIES NEEDS. WILL CONTINUE TO MONITOR.
[2019-07-02 16:21] VITALS: BP 148/86
--- NOTE | 2019-07-02 17:35 | NUR ---
RESTING IN BED. REQUESTED AND GIVEN PRN PAIN MEDICATION. STATES DR CAME IN AND TOLD PATIENT WOULD NEED TO GIVE ANOTHER STOOL SAMPLE. NO ORDERS IN AT THIS TIME. HAT PLACED IN TOILET AND SAMPLE CUP GIVEN PER PATIENT REQUEST.
[2019-07-02 20:00] VITALS: BP 143/101
--- NOTE | 2019-07-02 20:00 | NUR ---
ASSESSMENT PER FLOWSHEET. IV PATENT LEFT IFP OF NS AT 10CC'S/HR. SITE CLEAR. TELM. SHOW SR WITH HR 74. HOB UP 30 DEGREES.
--- NOTE | 2019-07-02 20:26 | NUR ---
C/O BACK PAIN RATES PAIN LEVEL #8 NORCO 10 TAB ONE PO GIVEN FOR PAIN CONTROL.
--- NOTE | 2019-07-02 21:30 | NUR ---
MEDS GIVEN PER OCT. UP AD GIDEON TO BR VOIDS NO REPORTED DIARRHEA.
--- NOTE | 2019-07-03 00:30 | NUR ---
EYES CLOSED RESPIRATIONS WITH EASE AND UNLABORED.
--- NOTE | 2019-07-03 00:43 | NUR ---
C/O PAIN IN BACK DILAUDID 1MG SIVP GIVEN FOR PAIN CONTROL. RATES PAIN LEVEL #8.
[2019-07-03 04:00] VITALS: BP 134/82
--- NOTE | 2019-07-03 04:20 | NUR ---
EYES CLOSED RESPIRATIONS WITH EASE AND UNLABORED
[2019-07-03 06:57] LABS: BASOPHILS 0.4 % (0-2); EOSINOPHILS 6.8 % (0-7); HEMATOCRIT 39.1 % (36.0-48.0); HEMOGLOBIN 11.7 g/dL (12-16); IMMATURE GRANULOCYTES 0.6 % (0-5); LYMPHOCYTES 33.1 % (15-50); MCHC 29.9 g/dL (31.0-37.0); MCV 90.1 fL (80.0-100.0); MEAN PLATELET VOLUME 8.9 fL (7.4-10.4); MONOCYTES 7.1 % (2-11); RBC 4.34 10x6/uL (4.00-5.40); RDW 17.7 % (11.5-14.5); WBC 10.7 10x3/uL (4.8-10.8)
[2019-07-03 07:07] LABS: ALBUMIN 2.8 g/dL (3.4-5.0); ANION GAP 16.2 mmol/L (8-16); BILIRUBIN - TOTAL 0.32 mg/dL (0.2-1.3); CALCIUM 8.6 mg/dL (8.5-10.1); CARBON DIOXIDE 23.5 mmol/L (21.0-32.0); CREATININE - SERUM 1.6 mg/dL (0.6-1.3); PLATELET COUNT 337 10x3/uL (130-400); POTASSIUM - SERUM 3.7 mmol/L (3.5-5.1); PROTEIN - SERUM 7.2 g/dL (6.4-8.2)
--- NOTE | 2019-07-03 07:44 | NUR ---
ALERT AND ORIENTED. LUNGS CLEAR BILATERALLY IN ALL LOBO. HEART SOUNDS S1 AND S2 HEARD IN ALL LOBO. BOWEL SOUNDS ACTIVE X 4. SKIN INTACT WITHOUT REDNESS. LEFT CHEST PORT PATENT WITHOUT REDNESS. DENIES NEEDS. BED LOW. CALL FULLER AND PERSONAL ITEMS IN REACH. WILL CONTINUE TO MONITOR.
[2019-07-03 08:27] VITALS: BP 133/78
--- NOTE | 2019-07-03 10:38 | NUR ---
RESTING IN BED. REQUESTING SWISH NYSTATIN FOR "THRUSH" IN MOUTH. TONGUE SLIGHTLY RED AROUND EDGES. NOTE LEFT FOR ESTEPHANIE HARRIS PER PATIENT REQUEST.
[2019-07-03 12:18] VITALS: BP 146/80
[2019-07-03 16:48] VITALS: BP 153/78
--- NOTE | 2019-07-03 17:50 | NUR ---
RESTING IN BED. DENIES NEEDS. WILL CONTINUE TO MONITOR.
--- NOTE | 2019-07-03 18:08 | NUR ---
LIDOCAINE PATCH APPLIED TO LEFT LOWER BACK.
--- NOTE | 2019-07-03 18:23 | NUR ---
RESTING IN BED. DENIES NEEDS. BED LOW. CALL FULLER AND PERSONAL ITEMS IN REACH.
[2019-07-03 20:00] VITALS: BP 160/106
[2019-07-04 04:00] VITALS: BP 149/78
[2019-07-04 05:57] LABS: ALBUMIN 2.3 g/dL (3.4-5.0); ANION GAP 14.7 mmol/L (8-16); BILIRUBIN - TOTAL 0.27 mg/dL (0.2-1.3); CALCIUM 8.1 mg/dL (8.5-10.1); CARBON DIOXIDE 23.5 mmol/L (21.0-32.0); CREATININE - SERUM 1.3 mg/dL (0.6-1.3); POTASSIUM - SERUM 3.2 mmol/L (3.5-5.1); PROTEIN - SERUM 6.4 g/dL (6.4-8.2)
[2019-07-04 06:20] LABS: BASOPHILS 0.3 % (0-2); HEMATOCRIT 33.7 % (36.0-48.0); HEMOGLOBIN 10.1 g/dL (12-16); IMMATURE GRANULOCYTES 1.1 % (0-5); LYMPHOCYTES 29.8 % (15-50); MCH 26.8 pg (26.0-34.0); MCV 89.4 fL (80.0-100.0); MEAN PLATELET VOLUME 8.2 fL (7.4-10.4); MONOCYTES 9.8 % (2-11); PLATELET COUNT 277 10x3/uL (130-400); RBC 3.77 10x6/uL (4.00-5.40); RDW 17.7 % (11.5-14.5)
[2019-07-04 06:23] LABS: WBC 7.4 10x3/uL (4.8-10.8)
[2019-07-04 08:13] VITALS: BP 132/91
--- NOTE | 2019-07-04 08:37 | NUR ---
AWAKE AND ALERT. ORIENTED X3. C/O INTENSE BACK PAIN THIS AM. ALL NARCOTICS ON HOLD FOR PIPPIDA. WILL MONITOR. LUNGS ARE CLEAR BILATERALLY,NO COUGH NOTED. SKIN IS INTACT WITHOUT REDNESS. LEFT PORT PATENT WTIHOUT REDNESS AT INSERTION SITE. DENIES NEEDS. NPO FOR TESTS.
--- NOTE | 2019-07-04 09:00 | NUR ---
CONTINUES NPO. WAITING ON PIPPIDA SCAN.
--- NOTE | 2019-07-04 09:57 | NUR ---
NUTRITION F//U CHART REVIEWED, PT VISIT. FAMILY AT BEDSIDE. CURRENTLY NPO FOR PIPPIDA SCAN. PO INTAKE HAS BEEN POOR RECENT MEALS. WILL CONTINUE TO MONITOR PT PROGRESS. RD FOLLOWING
--- NOTE | 2019-07-04 11:00 | NUR ---
NO CHANGES AT THIS TIME.
--- NOTE | 2019-07-04 12:21 | NUR ---
PIPCRISTIANDA SCAN CANCELLED FOR TODAY. SCHEDULED FOR EARLY AM TOMMORROW. GIVEN ONE MG MORPHINE SLOW IVP FOR PAIN LEVEL 10. WILL MONITOR.
[2019-07-04 12:25] VITALS: BP 170/90
--- NOTE | 2019-07-04 18:42 | NUR ---
ATE ABOUT 25% OF MEAL. DENIES NEEDS. NO CHANGES NOTED. DRESSING CHANGED TO PORT AT THIS TIME.
--- NOTE | 2019-07-04 19:35 | NUR ---
IN BED WITH TELEVISION ON, REQUEST BEDSIDE COMMODE TO HELP WITH PAIN CONTROL AND GOING TO BATHROOM. GRANTED. ON ROOM AIR. LEFT CHEST PORT IS PATENT AND DRESSING IS CDI. ABLE TO VOICE ALL NEEDS. WILL NOTE ANY CHANGE.
[2019-07-04 20:00] VITALS: BP 168/100
[2019-07-05] VITALS: BP 139/79
--- NOTE | 2019-07-05 02:18 | NUR ---
I have reviewed this patient and I concur with the Shift Assessment completed by the Licensed Practical Nurse today this shift.
[2019-07-05 04:00] VITALS: BP 152/85
--- NOTE | 2019-07-05 05:17 | NUR ---
UPON REVIEW OF EMAR, NOTED THAT DILAUDID WAS ABLE TO BE RESTARTED PER FACILITY PROTOCOL AND OFFERED ALTERNATIVE TO PT FOR PAIN MANAGEMENT 2/2 NPO STATUS FOR PIPIDA SCAN. PT WAS HAPPY WITH THIS NEWS AND WILL CALL WHEN SHE IS IN PAIN.
--- NOTE | 2019-07-05 06:09 | NUR ---
REQUESTED PAIN MEDICATION. GIVEN PER ORDERS. WILL NOTE ANY CHANGE.
[2019-07-05 07:13] LABS: ALBUMIN 2.3 g/dL (3.4-5.0); ANION GAP 11.2 mmol/L (8-16); BILIRUBIN - TOTAL 0.35 mg/dL (0.2-1.3); CALCIUM 7.7 mg/dL (8.5-10.1); CARBON DIOXIDE 26.5 mmol/L (21.0-32.0); CREATININE - SERUM 1.2 mg/dL (0.6-1.3); PROTEIN - SERUM 6.3 g/dL (6.4-8.2)
[2019-07-05 07:17] LABS: POTASSIUM - SERUM 3.7 mmol/L (3.5-5.1)
[2019-07-05 09:23] VITALS: BP 149/82
--- NOTE | 2019-07-05 10:20 | NUR ---
AND MOTHER IN ROOM. CL IN REACH. NO NEEDS AT THIS TIME. WCTM
[2019-07-05 12:06] LABS: BASOPHILS 0.1 % (0-2); EOSINOPHILS 5.7 % (0-7); HEMATOCRIT 33.7 % (36.0-48.0); HEMOGLOBIN 9.8 g/dL (12-16); IMMATURE GRANULOCYTES 0.6 % (0-5); LYMPHOCYTES 30.4 % (15-50); MCH 26.6 pg (26.0-34.0); MCHC 29.1 g/dL (31.0-37.0); MEAN PLATELET VOLUME 8.5 fL (7.4-10.4); NEUTROPHILS 53.2 % (40-80); PLATELET COUNT 273 10x3/uL (130-400); RBC 3.68 10x6/uL (4.00-5.40); RDW 18.3 % (11.5-14.5); WBC 6.8 10x3/uL (4.8-10.8)
[2019-07-05 12:07] LABS: MCV 91.6 fL (80.0-100.0)
--- NOTE | 2019-07-05 13:30 | NUR ---
TRAVIS FROM DC CALLED AND LET ME KNOW THAT THE PROCEDURE WAS TAKING 30 MIN LONGER. FAMILY NOT IN ROOM AT THIS TIME.
[2019-07-05 17:42] VITALS: BP 146/91
--- NOTE | 2019-07-05 19:25 | NUR ---
IN BED WITH TELEVISION ON. ABLE TO VOICE ALL NEEDS. IV PATENT TO LEFT CHEST WITH NORMAL SALINE INFUSING AT 50/HR. DENIES ANY PAIN AT THIS TIME, HAS A PLAN IN PLACE FOR PAIN MANAGEMENT LEADING UP TO TESTS TOMORROW. WILL NOTE ANY CHANGE.
[2019-07-05 20:00] VITALS: BP 168/96
[2019-07-06] VITALS (11 sets, daily range): BP systolic 137–167; BP diastolic 80–105
--- NOTE | 2019-07-06 02:50 | NUR ---
I have reviewed this patient and I concur with the Shift Assessment completed by the Licensed Practical Nurse today this shift.
--- NOTE | 2019-07-06 03:42 | NUR ---
AT 0300 REQUESTED PAIN MEDS, GIVEN PER OCT, ALSO ASSISTED TO BEDSIDE COMMODE. NO S/S OF ANY ACUTE DISTRESS. REMAINS NPO AT THIS TIME.
--- NOTE | 2019-07-06 06:26 | NUR ---
AT 0300 REQUESTED PAIN MED, DILAUDID GIVEN PER IV. AT THIS TIME, SHE IS REQUESTING HER NEXT TIME FOR PAIN MEDS, I EXPLAINED TO HER THAT IT IS EVERY SIX HOURS AND THAT WE NEEDED TO ADDRESS THIS WITH FIRST AVAILABLE PROVIDER SINCE SHE WILL BE NPO MOST OF DAY AND MISSING HER ORAL PAIN MEDICAITON REGIMINE, SHE UNDERSTOOD THIS AND THIS NURSE WILL PASS TO DAY SHIFT.
[2019-07-06 06:31] LABS: BASOPHILS 0.2 % (0-2); EOSINOPHILS 6.4 % (0-7); HEMATOCRIT 34.2 % (36.0-48.0); IMMATURE GRANULOCYTES 0.7 % (0-5); LYMPHOCYTES 32.7 % (15-50); MCH 26.5 pg (26.0-34.0); MCHC 29.2 g/dL (31.0-37.0); MCV 90.7 fL (80.0-100.0); MEAN PLATELET VOLUME 8.5 fL (7.4-10.4); MONOCYTES 10.1 % (2-11); NEUTROPHILS 49.9 % (40-80); PLATELET COUNT 262 10x3/uL (130-400); RBC 3.77 10x6/uL (4.00-5.40); RDW 18.5 % (11.5-14.5); WBC 6.1 10x3/uL (4.8-10.8)
[2019-07-06 06:49] LABS: ALBUMIN 2.2 g/dL (3.4-5.0); BILIRUBIN - TOTAL 0.3 mg/dL (0.2-1.3); CARBON DIOXIDE 26.4 mmol/L (21.0-32.0); CREATININE - SERUM 1.1 mg/dL (0.6-1.3); POTASSIUM - SERUM 3.4 mmol/L (3.5-5.1)
--- NOTE | 2019-07-06 09:02 | NUR ---
Nutrition follow-up: Diet: low sodium PO Intake 25-50% of meals Labs reviewed WT: 211# +BM PO intake remains poor to fair due to increased pain Will continue to provide food choices and honor food preferences. Recommend changing diet order to regular as tolerated to encourage increased po intake. RDN following.
--- NOTE | 2019-07-06 10:59 | NUR ---
AND MOTHER IN ROOM. WAITING ON MRI. CL IN REACH. QUESTIONS ASKED ABOUT PIPIDA SCAN YESTERDAY. I RESPONDED THE DOCTOR WOULD HAVE TO TALK TO THEM ABOUT THAT. NO FURTHER NEEDS WILL CONTINUE TO MONITOR
--- NOTE | 2019-07-06 12:24 | NUR ---
FAMILY WENT TO EAT FISH. PATIENT LAYING ON BACK. NO NEEDS AT THIS TIME. CL IN REACH. WCTM
--- NOTE | 2019-07-06 17:49 | NUR ---
PATIENT STILL WITH MRI. MOTHER WAITING IN ROOM.
--- NOTE | 2019-07-06 20:00 | NUR ---
RESTING IN BED EYES CLOSED, AROUSED EASILY, REPORTS CONTINUES TO HAVE GENERALIZED PAIN ALL OVER BUT ESPECIALLY IN BACK SINCE MRI, SEE SHIFT ASSESSMENT, CALL LIGHT IN REACH, AT BEDSIDE
[2019-07-07] VITALS: BP 164/85
[2019-07-07 01:20] VITALS: BP 160/82
[2019-07-07 05:52] VITALS: BP 153/86
[2019-07-07 06:46] LABS: ALBUMIN 2.2 g/dL (3.4-5.0); BILIRUBIN - TOTAL 0.31 mg/dL (0.2-1.3); CALCIUM 7.9 mg/dL (8.5-10.1); PROTEIN - SERUM 5.8 g/dL (6.4-8.2)
[2019-07-07 08:51] VITALS: BP 147/97
--- NOTE | 2019-07-07 10:21 | NUR ---
PT ALERT X 4. BREATH SOUNDS CLEAR BILAT. TELEMETRY IN PLACE. LEFT PORT ACCESSED, PATENT, DRESSING CDI. PT REPORTING PAIN OF 9/10, MEDICATED PER ORDERS, WILL MONITOR. FAMILY AT BEDSIDE. BED LOW, CALL LIGHT IN REACH. NO OTHER NEEDS AT THIS TIME.
[2019-07-07 12:40] VITALS: BP 161/93
--- NOTE | 2019-07-07 19:15 | NUR ---
Patient sitting up in bed, at bedside. Patient states she is in pain, but it is to early to give her any pain medicine at this time. Left chest port accessed, no redness or swelling. Encouraged patient to call with any needs. Bed rails x2. Call light and bedside table within reach.
[2019-07-07 20:56] VITALS: BP 155/81
[2019-07-08 00:36] VITALS: BP 163/93
[2019-07-08 05:21] VITALS: BP 137/90
[2019-07-08 07:20] LABS: ALBUMIN 2.1 g/dL (3.4-5.0); ANION GAP 11.6 mmol/L (8-16); BILIRUBIN - TOTAL 0.34 mg/dL (0.2-1.3); CALCIUM 7.9 mg/dL (8.5-10.1); CARBON DIOXIDE 26.7 mmol/L (21.0-32.0); POTASSIUM - SERUM 4.3 mmol/L (3.5-5.1); PROTEIN - SERUM 5.9 g/dL (6.4-8.2)
[2019-07-08 09:19] VITALS: BP 148/81
[2019-07-08 12:20] VITALS: BP 161/79
[2019-07-08] MEDS ORDERED: ELIQUIS5 MG PO (13:49)
[2019-07-08] MEDS ORDERED: DILAUDID2 MG PO (13:53)
--- NOTE | 2019-07-08 15:13 | MORECARE ---
CASE MANAGEMENT DISCHARGE SUMMARY PATIENT: MADHURI MELGAR UNIT: [id number] ADM DATE: 06/25/19 AGE: 58 : 56 SEX: F ROOM/BED: D.2315 AUTHOR: LINDA LAYNE PHYSICIAN: REFERRING PHYSICIAN: FORREST JIN DO DATE OF SERVICE: 07/08/19 Discharge Plan Patient Name: MADHURI MELGAR Facility: [facility]:[place] : 1960 Planned Disposition: Home Anticipated Discharge Date: 06/28/19 Discharge Date: Expected LOS: 3 Initial Reviewer: [email or web address] Initial Review Date: 06/25/2019 Generated: 07/08/19 4:13 pm Comments DCP- Discharge Planning Updated by [id number]: Devorah Blackwell on 07/08/19 2:[address] Patient Name: MADHURI MELGAR Admission Status: ER Accout number: [id number] Admission Date: 06-25-2019 : 1960 Admission Diagnosis: Attending: FORREST JIN Current LOS: 13 Anticipated DC Date: 06-28-2019 Planned Disposition: Home Primary Insurance: [place] PR[place] Discharge Planning Comments: PATIENT AND FAMILY WANTS [facility], [facility] SIGNED. I HAVE CONTACTED AND FAXED PAPERS TO [facility]. [facility] HH WILL SEE TOMORROW. WAITING VICE PRESIDENT & GENERAL MANAGER BRAND [place] BACK. Ceiling Insulation Blower: Devorah Blackwell DCP- Discharge Planning Updated by [email or web address]: Elizabeth Sanchez on 06/26/19 11:[address] DC PLAN: Return home with . ANTICIPATED DC NEEDS: Denied known dc needs during assessment. CM met with patient to complete initial dc planning assessment. CM educated patient on the CM role and verbal consent given by patient to complete assessment. CM verified patient's address, phone number, and emergency contact phone numbers. Patient lives at home with her . At discharge patient plans to return home and feels this is a safe discharge. Patient stated she was able to care for herself but requires assistance with cooking and transportation. She stated she can't stand for long periods of time and she no longer is able to drive. CM discussed availability of home health, rehab services, and medical equipment. Patient denied known discharge needs at this time. Patient reports her will transport her home at time of discharge. CM will continue to follow and will assist as needed with dc plans/needs. Elizabeth Sanchez RN, [facility] DCPIA - Discharge Planning Initial Assessment Updated by [id number]: Elizabeth Sanchez on 06/26/19 11:47 am * Is the patient Alert and Oriented? Yes * How many steps to enter\exit or inside your home? Ramp * PCP Dr. Silver * Pharmacy [facility] * Preadmission Environment Home with Family * ADLs Partial Dependent * Partial ADLs (Assistance needed) Dressing * Equipment Rolling Walker Shower Chair Wheelchair * Other Equipment Blood Pressure machine * List name and contact numbers for known caregivers / representatives who currently or will assist patient after discharge: Reese Melgar - spouse - [phone] Myrna Wilkins - Mother - [phone] * Verbal permission to speak to the caregivers and representatives has been obtained from the patient. Yes * Community resources currently utilized None * Additional services required to return to the preadmission environment? No * Can the patient safely return to the preadmission environment? Yes * Has this patient been hospitalized within the prior 30 days at any hospital? No External Providers External Provider: [facility] Next Contact Date: Service Request Date: Service Type: Resolution: Reviewer: Comments: Coverage Notice Reviewer: [email or web address] Dusty Blackwell Notice Issued Date-Time: 07/08/2019 15:09 Notice Type: Patient Choice Letter Notice Delivered To: Patient Relationship to Patient: Assistant To The Dean Name: Delivery Method: HAND - Hand Delivered Charissa Days: Prior Verbal Notification: Recipient Understood Notice: Yes Recipient Signature: Yes Med Rec Note Co-signed by Attending: Coverage Notice Comment: WILMER Forrest DP export: 06/26/19 11:53 Patient Name: MADHURI MELGAR Page [id number] at 1513 All edits/amendments must be made on the electronic document DICTATION DATE: 07/08/191512 CLINICAL SYSTEMS ANALYST: ALFRED 07/08/191512 RPT#: [id number] DC DATE: STATUS: ADM IN [facility] [address] [place] [address] END OF REPORT
[2019-07-08 16:10] LABS: AEROBE ID Final report (()); RESULT 1 Eikenella corrodens (())
--- NOTE | 2019-07-08 16:30 | NUR ---
DISCHARGE PAPERWORK SIGNED, ALL QUESTIONS ANSWERED. PORT DEACCESSED. ESCORTED OUT BY WHEELCHAIR.
--- NOTE | 2019-07-08 17:31 | MORECARE ---
CASE MANAGEMENT DISCHARGE SUMMARY PATIENT: MADHURI MELGAR UNIT: [id number] ADM DATE: 06/25/19 AGE: 58 : 56 SEX: F ROOM/BED: D.2200 AUTHOR: LINDA LAYNE PHYSICIAN: REFERRING PHYSICIAN: FORREST JIN DO DATE OF SERVICE: 07/08/19 Discharge Plan Patient Name: MADHURI MELGAR Facility: [facility]:[place] : 1960 Planned Disposition: Home Anticipated Discharge Date: 06/28/19 Discharge Date: 07/08/2019 Expected LOS: 3 Initial Reviewer: [email or web address] Initial Review Date: 06/25/2019 Generated: 07/08/19 6:30 pm Comments DCP- Discharge Planning Updated by [email or web address]: Devorah Blackwell on 07/08/19 4:[address] Patient Name: MADHURI MELGAR Admission Status: ER Accout number: [id number] Admission Date: 06-25-2019 : 1960 Admission Diagnosis: Attending: FORREST JIN Current LOS: 13 Anticipated DC Date: 06-28-2019 Planned Disposition: Home Primary Insurance: [place] PRIVATE OPTIONS NA Discharge Planning Comments: PATIENT AND FAMILY WANTS [facility], [facility] SIGNED. I HAVE CONTACTED AND FAXED PAPERS TO [facility]. [facility] HH WILL SEE TOMORROW. WAITING COPRA PROCESSOR BACK. Apartment Leasing Consultant: Devorah Blackwell Appended by Devorah Blackwell on 07/08/2019 17:27 MANAGER TRUST: I CALLED AND GAVE PATIENT JULIOCESAR JOSEPH CONTACT INFORMATION WITH "A PLACE FOR MOM" FOR ANY ADDITIONAL RESOURCES SHE MAY QUALIFY FOR . DCP- Discharge Planning Updated by [id number]: Elizabeth Sanchez on 06/26/19 11:[address] DC PLAN: Return home with . ANTICIPATED DC NEEDS: Denied known dc needs during assessment. CM met with patient to complete initial dc planning assessment. CM educated patient on the CM role and verbal consent given by patient to complete assessment. CM verified patient's address, phone number, and emergency contact phone numbers. Patient lives at home with her . At discharge patient plans to return home and feels this is a safe discharge. Patient stated she was able to care for herself but requires assistance with cooking and transportation. She stated she can't stand for long periods of time and she no longer is able to drive. CM discussed availability of home health, rehab services, and medical equipment. Patient denied known discharge needs at this time. Patient reports her will transport her home at time of discharge. CM will continue to follow and will assist as needed with dc plans/needs. Elizabeth Sanchez RN, [facility] DCPIA - Discharge Planning Initial Assessment Updated by [id number]: Elizabeth Sanchez on 06/26/19 11:47 am * Is the patient Alert and Oriented? Yes * How many steps to enter\\exit or inside your home? Ramp * PCP Dr. Silver * Pharmacy [facility] * Preadmission Environment Home with Family * ADLs Partial Dependent * Partial ADLs (Assistance needed) Dressing * Equipment Rolling Walker Shower Chair Wheelchair * Other Equipment Blood Pressure machine * List name and contact numbers for known caregivers / representatives who currently or will assist patient after discharge: Reese Melgar - spouse - [phone] Myrna Wilkins - Mother - [phone] * Verbal permission to speak to the caregivers and representatives has been obtained from the patient. Yes * Community resources currently utilized None * Additional services required to return to the preadmission environment? No * Can the patient safely return to the preadmission environment? Yes * Has this patient been hospitalized within the prior 30 days at any hospital? No Coverage Notice Reviewer: [email or web address] Dusty Blackwell Notice Issued Date-Time: 07/08/2019 15:09 Notice Type: Patient Choice Letter Notice Delivered To: Patient Relationship to Patient: Grocery Worker Name: Delivery Method: HAND - Hand Delivered Charissa Days: Prior Verbal Notification: Recipient Understood Notice: Yes Recipient Signature: Yes Med Rec Note Co-signed by Attending: Coverage Notice Comment: WILMER ERICKSON Last DP export: 07/08/19 2:13 Patient Name: MADHURI MELGAR Page [id number] at 1731 All edits/amendments must be made on the electronic document DICTATION DATE: 07/08/191729 LADIES' LOCKER ROOM ATTENDANT: ALFRED 07/08/191729 RPT#: [id number] DC DATE:07/08/19 STATUS: DIS IN [facility] [address] [place] [address] END OF REPORT
--- NOTE | 2019-07-11 11:59 | MORECARE ---
CASE MANAGEMENT DISCHARGE SUMMARY PATIENT: MADHURI MELGAR UNIT: [id number] ADM DATE: 06/25/19 AGE: 58 : 56 SEX: F ROOM/BED: D.2206 AUTHOR: LINDA LAYNE PHYSICIAN: REFERRING PHYSICIAN: FORREST JIN DO DATE OF SERVICE: 07/11/19 Discharge Plan Patient Name: MADHURI MELGAR Facility: [facility]:[place] : 1960 Planned Disposition: Home Anticipated Discharge Date: 06/28/19 Discharge Date: 07/08/2019 Expected LOS: 3 Initial Reviewer: [email or web address] Initial Review Date: 06/25/2019 Generated: 07/11/19 12:59 pm Comments DCP- Discharge Planning Updated by [email or web address]: Devorah Blackwell on 07/08/19 4:[address] Patient Name: MADHURI MELGAR Admission Status: ER Accout number: [id number] Admission Date: 06-25-2019 : 1960 Admission Diagnosis: Attending: FORREST JIN Current LOS: 13 Anticipated DC Date: 06-28-2019 Planned Disposition: Home Primary Insurance: [place] PRIVATE OPTIONS NA Discharge Planning Comments: PATIENT AND FAMILY WANTS [facility], [facility] SIGNED. I HAVE CONTACTED AND FAXED PAPERS TO [facility]. [facility] HH WILL SEE TOMORROW. WAITING CONSUMER ADVOCATE BACK. Scroll Machine Operator: Devorah Blackwell Appended by Devorah Blackwell on 07/08/2019 17:27 SYSTEM SOFTWARE PROGRAMMER: I CALLED AND GAVE PATIENT JULIOCESAR JOSEPH CONTACT INFORMATION WITH "A PLACE FOR MOM" FOR ANY ADDITIONAL RESOURCES SHE MAY QUALIFY FOR . DCP- Discharge Planning Updated by [email or web address]: Elizabeth Sanchez on 06/26/19 11:[address] DC PLAN: Return home with . ANTICIPATED DC NEEDS: Denied known dc needs during assessment. CM met with patient to complete initial dc planning assessment. CM educated patient on the CM role and verbal consent given by patient to complete assessment. CM verified patient's address, phone number, and emergency contact phone numbers. Patient lives at home with her . At discharge patient plans to return home and feels this is a safe discharge. Patient stated she was able to care for herself but requires assistance with cooking and transportation. She stated she can't stand for long periods of time and she no longer is able to drive. CM discussed availability of home health, rehab services, and medical equipment. Patient denied known discharge needs at this time. Patient reports her will transport her home at time of discharge. CM will continue to follow and will assist as needed with dc plans/needs. Elizabeth Sanchez RN, [facility] DCPIA - Discharge Planning Initial Assessment Updated by [email or web address]: Elizabeth Sanchez on 06/26/19 11:47 am * Is the patient Alert and Oriented? Yes * How many steps to enter\\exit or inside your home? Ramp * PCP Dr. Silver * Pharmacy [facility] * Preadmission Environment Home with Family * ADLs Partial Dependent * Partial ADLs (Assistance needed) Dressing * Equipment Rolling Walker Shower Chair Wheelchair * Other Equipment Blood Pressure machine * List name and contact numbers for known caregivers / representatives who currently or will assist patient after discharge: Reese Melgar - spouse - [phone] Myrna Wilkins - Mother - [phone] * Verbal permission to speak to the caregivers and representatives has been obtained from the patient. Yes * Community resources currently utilized None * Additional services required to return to the preadmission environment? No * Can the patient safely return to the preadmission environment? Yes * Has this patient been hospitalized within the prior 30 days at any hospital? No Coverage Notice Reviewer: [email or web address] Dusty Blackwell Notice Issued Date-Time: 07/08/2019 15:09 Notice Type: Patient Choice Letter Notice Delivered To: Patient Relationship to Patient: Train Brakeman Name: Delivery Method: HAND - Hand Delivered Charissa Days: Prior Verbal Notification: Recipient Understood Notice: Yes Recipient Signature: Yes Med Rec Note Co-signed by Attending: Coverage Notice Comment: WILMER ERICKSON Last DP export: 07/08/19 4:31 Patient Name: MADHURI MELGAR Page 54548 at 1159 All edits/amendments must be made on the electronic document DICTATION DATE: 07/11/19 1153 HOGSHEAD INSPECTOR: ALFRED 07/11/19 1159 RPT#: [id number] DC DATE:07/08/19 STATUS: DIS IN [facility] [address] [place] [address] END OF REPORT
[2019-08-01 16:06] VITALS: Ht 162.6 cm; Wt 95.7 kg
== END 2019-07-08 16:33 | disposition home health service (06) | DRG 948 ==
LOC: D.ER 14:03 → D.MS 19:40
PROVIDERS: Family Medicine; Internal Medicine Hematology & Oncology; ADMIT Family Medicine; ATTEND Family Medicine
DX: G89.3 Neoplasm related pain (acute) (chronic) (principal); C64.9 Malignant neoplasm of unspecified kidney, except renal pelvis; C78.7 Secondary malignant neoplasm of liver and intrahepatic bile duct; C79.51 Secondary malignant neoplasm of bone; I10 Essential (primary) hypertension; E03.9 Hypothyroidism, unspecified; K21.9 Gastro-esophageal reflux disease without esophagitis; G89.29 Other chronic pain; K82.8 Other specified diseases of gallbladder

== ENCOUNTER → 2019-07-30 11:47 | Outpatient (CLI) | payer MEDICAID ==
[~2019-07-30 11:47] MED LIST changes: +CELEXA20 MG PO; +DILAUDID2 MG PO; +ELIQUIS5 MG PO; +Levaquin PO
[2019-07-30 14:27] LABS: APPEARANCE CLEAR (CLEAR); BACTERIA MODERATE /hpf (NEGATIVE); BILIRUBIN NEGATIVE (NEGATIVE); COLOR YELLOW (YELLOW); EPITHELIAL CELLS 0-5 /hpf (0-5); GLUCOSE NEGATIVE (NEGATIVE); KETONE LARGE mg/dL (NEGATIVE); MUCUS >1+ /lpf (NONE SEEN); NITRITE NEGATIVE (NEGATIVE); PROTEIN 1+ mg/dL (NEGATIVE); RED CELLS - URINE NONE SEEN /hpf (0-5); SPECIFIC GRAVITY 1.015 (1.005-1.020); WHITE CELLS - URINE RARE /hpf (NEGATIVE)
== END | disposition home or self-care (01) ==
LOC: D.LABREF 11:47
PROVIDERS: ATTEND Family Medicine
DX: C64.1 Malignant neoplasm of right kidney, except renal pelvis (principal)

== ENCOUNTER 2019-07-31 21:14 | Inpatient (IN) | payer MEDICAID ==
[~2019-07-31] VITALS: Ht 162.6 cm; Wt 86.2 kg
[~2019-07-31 21:14] MED LIST changes: -Levaquin PO
[2019-07-31 22:00] LABS: BASOPHILS 0.2 % (0-2); EOSINOPHILS 1.7 % (0-7); HEMOGLOBIN 12.7 g/dL (12-16); IMMATURE GRANULOCYTES 0.4 % (0-5); MCH 25.9 pg (26.0-34.0); MCV 83.7 fL (80.0-100.0); MEAN PLATELET VOLUME 8.6 fL (7.4-10.4); MONOCYTES 5.7 % (2-11); PLATELET COUNT 278 10x3/uL (130-400); RDW 18.1 % (11.5-14.5); WBC 11.4 10x3/uL (4.8-10.8)
[2019-07-31 22:15] LABS: ANION GAP 16.4 mmol/L (8-16); CALCIUM 9.1 mg/dL (8.5-10.1); CREATININE - SERUM 1.1 mg/dL (0.6-1.3); POTASSIUM - SERUM 3.4 mmol/L (3.5-5.1)
[2019-07-31 22:22] LABS: ALBUMIN 2.5 g/dL (3.4-5.0); BILIRUBIN - TOTAL 0.61 mg/dL (0.2-1.3); PROTEIN - SERUM 7.5 g/dL (6.4-8.2)
[2019-07-31 22:24] LABS: APPEARANCE CLEAR (CLEAR); SPECIFIC GRAVITY 1.015 (1.005-1.020)
[2019-07-31 22:25] LABS: COLOR ORANGE (YELLOW)
[2019-07-31 22:26] LABS: BACTERIA MANY /hpf (NEGATIVE); EPITHELIAL CELLS 0-5 /hpf (0-5); WHITE CELLS - URINE >50 /hpf (NEGATIVE)
--- NOTE | 2019-08-01 01:10 | NUR ---
LATE ENTRY FOR 07/31/19 FOR STOP TIME ON ROCEPHIN 1GM 0110
[2019-08-01 01:54] VITALS: BP 136/80
--- NOTE | 2019-08-01 02:34 | NUR ---
PATIENT REFUSED SCD'S. BED RAILS X2. CALL LIGHT AND BEDSIDE TABLE IN REACH. ENCOURAGED PATIENT TO CALL WITH ANY NEEDS.
[2019-08-01] MEDS ORDERED: MICARDIS HCT 81 EACH PO (02:41)
[2019-08-01] MEDS ORDERED: ELIQUIS5 MG PO (02:42)
[2019-08-01 05:50] VITALS: BP 135/60
[2019-08-01 06:50] LABS: BASOPHILS 0.2 % (0-2); HEMATOCRIT 38.1 % (36.0-48.0); HEMOGLOBIN 11.5 g/dL (12-16); IMMATURE GRANULOCYTES 0.2 % (0-5); LYMPHOCYTES 20.2 % (15-50); MCH 25.7 pg (26.0-34.0); MCHC 30.2 g/dL (31.0-37.0); MEAN PLATELET VOLUME 9.3 fL (7.4-10.4); NEUTROPHILS 69.4 % (40-80); PLATELET COUNT 282 10x3/uL (130-400); RBC 4.48 10x6/uL (4.00-5.40); RDW 18.4 % (11.5-14.5)
[2019-08-01 07:00] LABS: ALBUMIN 2.3 g/dL (3.4-5.0); ANION GAP 12.3 mmol/L (8-16); BILIRUBIN - TOTAL 0.47 mg/dL (0.2-1.3); CALCIUM 8.9 mg/dL (8.5-10.1); CREATININE - SERUM 1.1 mg/dL (0.6-1.3); POTASSIUM - SERUM 3.3 mmol/L (3.5-5.1); PROTEIN - SERUM 7.1 g/dL (6.4-8.2)
--- NOTE | 2019-08-01 08:00 | NUR ---
LYING IN BED,WITHOUT NEEDS.FAMILY AT BEDSIDE
[2019-08-01 08:36] VITALS: BP 112/67
--- NOTE | 2019-08-01 09:25 | NUR ---
PT STATES PAIN IS STILL AT A 10 ADMINISTERED PRN IV PAIN MEDICATION AND SCHEDULED AND PT STATES PAIN STILL NOT CONTROLLED. WILL RELAY MESSAGE TO DOCTORS
[2019-08-01 12:32] VITALS: BP 111/69
[2019-08-01 13:19] VITALS: BMI 32.6
[2019-08-01 16:28] VITALS: BP 145/80
--- NOTE | 2019-08-01 19:32 | NUR ---
LYING IN BED WITH EYES CLOSED, RESTING QUIETLY. ABLE TO VOICE ALL NEEDS. DENIES ANY PAIN GREATER THAN 7/10 AT THIS TIME. IV TO LEFT CHEST PORT INFUSING VIA ORDERS AT THIS TIME. WILL NOTE ANY CHANGE.
[2019-08-01 20:00] VITALS: BP 126/77
--- NOTE | 2019-08-02 01:44 | NUR ---
I have reviewed this patient and I concur with the Shift Assessment completed by the Licensed Practical Nurse today this shift.
[2019-08-02 04:00] VITALS: BP 138/85
--- NOTE | 2019-08-02 06:16 | NUR ---
REQUESTED PAIN MEDS AT 0000 AND 0520, GIVEN PER ORDERS WITH EFFECTIVENESS NOTED. SHOWS NO S/S OF ANY FURTHER ISSUES. RESTED WELL THIS SHIFT.
--- NOTE | 2019-08-02 07:51 | NUR ---
PT SITTING UP IN BED. RR EVEN AND UNLABORED. DENIES NEEDS AT THIS TIME. PT STATES SHE WILL WANT HER PAIN MEDICATION WHEN IT IS TIME. BED IN LOWEST POSITION. CALL LIGHT WITHIN REACH. WILL CONTINUE TO MONITOR.
[2019-08-02 08:36] VITALS: BP 124/57; BP 135/82
[2019-08-02 10:20] LABS: ANION GAP 11.8 mmol/L (8-16); CALCIUM 8.5 mg/dL (8.5-10.1); CARBON DIOXIDE 25.5 mmol/L (21.0-32.0); POTASSIUM - SERUM 3.3 mmol/L (3.5-5.1)
--- NOTE | 2019-08-02 11:44 | NUR ---
Rehab Note- Acute Inpatient REhab prescreen order received. The patient has [employer] insurance and will require a PreAuth, will need the PT & OT Evals for PreAuth process. PT attempted to Eval the patient 08/02 & she was too lethargic at that time to participate. Will continue to follow at this time. Thank you for this referral! Vashti Kumar RN Clinical Liaison, [facility] Rehab
[2019-08-02 11:48] LABS: HEMATOCRIT 37.3 % (36.0-48.0); HEMOGLOBIN 11.2 g/dL (12-16); MCV 85.2 fL (80.0-100.0); RBC 4.38 10x6/uL (4.00-5.40); WBC 7.7 10x3/uL (4.8-10.8)
[2019-08-02 11:49] LABS: MCH 25.6 pg (26.0-34.0)
[2019-08-02 11:52] LABS: EOSINOPHILS 4.7 % (0-7); LYMPHOCYTES 19.5 % (15-50); MONOCYTES 7.3 % (2-11); NEUTROPHILS 68.2 % (40-80); PLATELET COUNT 310 10x3/uL (130-400); RDW 18.5 % (11.5-14.5)
--- NOTE | 2019-08-02 12:29 | NUR ---
I have reviewed this patient and I concur with the Shift Assessment completed by the Licensed Practical Nurse today this shift.
[2019-08-02 14:44] VITALS: BP 148/77
--- NOTE | 2019-08-02 14:49 | NUR ---
OT NOTE: PT COMPLETED BED MOB TASKS WITH MIN A. PT COMPLETED GROOMING/HYGIENE TASKS WITH SET UP. THANK YOU,JATIN ESPINO
[2019-08-02 16:20] VITALS: Ht 162.6 cm; Wt 86.2 kg
[2019-08-02 16:36] VITALS: BP 167/89
--- NOTE | 2019-08-02 17:11 | MORECARE ---
CASE MANAGEMENT DISCHARGE SUMMARY PATIENT: MADHURI MELGAR UNIT: [id number] ADM DATE: 08/01/19 AGE: 58 : 56 SEX: F ROOM/BED: D.2232 AUTHOR: ROVERTODOC PHYSICIAN: REFERRING PHYSICIAN: GRIS BAKER MD DATE OF SERVICE: 08/02/19 Discharge Plan Patient Name: MADHURI MELGAR Facility: [facility]:[place] : 1960 Planned Disposition: Inpatient Rehab Anticipated Discharge Date: Discharge Date: Expected LOS: Initial Reviewer: [email or web address] Initial Review Date: 08/02/2019 Generated: 08/02/19 6:11 pm Comments DCP- Discharge Planning Updated by [id number]: Claudette Reich on 08/02/19 4:[address] Patient Name: MADHURI MELGAR Admission Status: ER Accout number: [id number] Admission Date: 08-01-2019 : 1960 Admission Diagnosis: Attending: GRIS BAKER Current LOS: 1 Anticipated DC Date: Planned Disposition: Inpatient Rehab [place]: [place] PR[place] Discharge Planning Comments: CM met with patient to complete initial dc planning assessment. CM educated patient on the CM role and verbal consent given by patient to complete assessment. Patient lives at home with her spouse. CM discussed availability of home health, rehab services, and medical equipment. Patient would like to go to [facility] inpatient rehab. She states she was there about a year ago and made good progress. I explained to her that she would need prior authorization from her insurance company and if they denied inpatient rehab, she may want to consider a SNF. I gave her the lists of inpatient rehab as well as skilled facilities and explained the differences in care, voiced understanding. I will make a referral to [facility] in the morning. CM will continue to follow and will assist as needed with dc plans/needs. Decision Support Analyst: Claudette Reich DCPIA - Discharge Planning Initial Assessment Updated by [id number]: Claudette Reich on 08/02/19 5:04 pm * Is the patient Alert and Oriented? Yes * How many steps to enter\exit or inside your home? Ramp/0 * PCP Dr. Silver * Pharmacy [facility] * Preadmission Environment Home with Family * ADLs Partial Dependent * Partial ADLs (Assistance needed) Ambulation * Equipment Bedside Commode Other Rolling Walker Shower Chair Wheelchair * Other Equipment Blood Pressure machine * List name and contact numbers for known caregivers / representatives who currently or will assist patient after discharge: Reese Melgar - spouse - [phone] Myrna Wilkins - mother - [phone] * Verbal permission to speak to the caregivers and representatives has been obtained from the patient. Yes * Community resources currently utilized Home Health * Please name any agencies selected above. [facility] Spinal cord commission * Additional services required to return to the preadmission environment? Yes * Can the patient safely return to the preadmission environment? Yes * Has this patient been hospitalized within the prior 30 days at any hospital? Yes Coverage Notice Reviewer: [id number] Dusty Reich Notice Issued Date-Time: 08/02/2019 17:09 Notice Type: Patient Choice Letter Notice Delivered To: Patient Relationship to Patient: Buggy Ladle Tender Name: Delivery Method: HAND - Hand Delivered Charissa Days: Prior Verbal Notification: Recipient Understood Notice: Yes Recipient Signature: Yes Med Rec Note Co-signed by Attending: Coverage Notice Comment: [facility] for [facility] first, then [facility] Patient Name: MADHURI MELGAR Page 20167 at 1711 All edits/amendments must be made on the electronic document DICTATION DATE: 08/02/191710 NURSE MANAGER: ALFRED 08/02/191710 RPT#: [id number] DC DATE: STATUS: ADM IN [facility] [address] [place] [address] END OF REPORT
--- NOTE | 2019-08-02 19:17 | NUR ---
LYING IN BED WITH EYES CLOSED, RESP EVEN AND UNLABORED. SHOWS NO S/S OF ANY ACUTE DISTRESS. AROUSES TO VERBAL STIMULI. ABLE TO VOICE NEEDS. WILL NOTE ANY CHANGE.
[2019-08-02 21:00] VITALS: BP 163/85
[2019-08-03 00:13] VITALS: BP 168/84
--- NOTE | 2019-08-03 01:16 | NUR ---
I have reviewed this patient and I concur with the Shift Assessment completed by the Licensed Practical Nurse today this shift.
--- NOTE | 2019-08-03 04:50 | NUR ---
REQUESTED PAIN MEDICATION AT 1944 AND 2329, GIVEN ACCORDING TO MAR BOTH ADMINISTRATIONS WERE EFFECTIVE AND PT SLEPT MOST OF NIGHT. WILL NOTE ANY CHANGE.
[2019-08-03 05:14] VITALS: BP 158/92
--- NOTE | 2019-08-03 07:15 | NUR ---
REC'D IN BED AWAKE AND ALERT. RESP EVEN AND UNLABORED WITH NO DISTRESS NOTED. CAN EXPRESS NEEDS AND WANTS. C/O CHRONIC BACK PAIN RATING 9/10 ON PAIN SCALE. MEDCIATED WITH DILAUDID PER ORDERS. ASSESSMENT COMPLETED. C/L IN REACH AT BEDSIDE.
[2019-08-03 07:32] LABS: BASOPHILS 0.3 % (0-2); EOSINOPHILS 6.7 % (0-7); HEMATOCRIT 34.8 % (36.0-48.0); HEMOGLOBIN 10.4 g/dL (12-16); IMMATURE GRANULOCYTES 0.5 % (0-5); MCH 25.5 pg (26.0-34.0); MCHC 29.9 g/dL (31.0-37.0); MCV 85.3 fL (80.0-100.0); MEAN PLATELET VOLUME 8.7 fL (7.4-10.4); MONOCYTES 9.4 % (2-11); NEUTROPHILS 59.1 % (40-80); PLATELET COUNT 280 10x3/uL (130-400); RBC 4.08 10x6/uL (4.00-5.40); RDW 18.3 % (11.5-14.5); WBC 6.3 10x3/uL (4.8-10.8)
[2019-08-03 07:49] LABS: ANION GAP 10.3 mmol/L (8-16); CALCIUM 8.4 mg/dL (8.5-10.1); CARBON DIOXIDE 26.1 mmol/L (21.0-32.0); CREATININE - SERUM 0.9 mg/dL (0.6-1.3); POTASSIUM - SERUM 3.4 mmol/L (3.5-5.1)
[2019-08-03 08:46] VITALS: BP 165/85
--- NOTE | 2019-08-03 12:36 | MORECARE ---
CASE MANAGEMENT DISCHARGE SUMMARY PATIENT: MADHURI MELGAR UNIT: [id number] ADM DATE: 08/01/19 AGE: 58 : 56 SEX: F ROOM/BED: D.2232 AUTHOR: LINDA LAYNE PHYSICIAN: REFERRING PHYSICIAN: GRIS BAKER MD DATE OF SERVICE: 08/03/19 Discharge Plan Patient Name: MADHURI MELGAR Facility: [facility]:[place] : 1960 Planned Disposition: Inpatient Rehab Anticipated Discharge Date: Discharge Date: Expected LOS: Initial Reviewer: [id number] Initial Review Date: 08/02/2019 Generated: 08/03/19 1:35 pm Comments DCP- Discharge Planning Updated by [id number]: Claudette Reich on 08/03/19 11:[address] Referral sent to [facility] for inpatient rehab, clinical faxed and I spoke with Mamie. CM will continue to follow and assist with discharge planning/needs. DCP- Discharge Planning Updated by [id number]: Claudette Reich on 08/02/19 4:[address] Patient Name: MADHURI MELGAR Admission Status: ER Accout number: [id number] Admission Date: 08-01-2019 : 1960 Admission Diagnosis: Attending: GRIS BAKER Current LOS: 1 Anticipated DC Date: Planned Disposition: Inpatient Rehab [place] Insurance: [place] PRIVATE OPTIONS [place] Discharge Planning Comments: CM met with patient to complete initial dc planning assessment. CM educated patient on the CM role and verbal consent given by patient to complete assessment. Patient lives at home with her spouse. CM discussed availability of home health, rehab services, and medical equipment. Patient would like to go to [facility] inpatient rehab. She states she was there about a year ago and made good progress. I explained to her that she would need prior authorization from her insurance company and if they denied inpatient rehab, she may want to consider a SNF. I gave her the lists of inpatient rehab as well as skilled facilities and explained the differences in care, voiced understanding. I will make a referral to [facility] in the morning. CM will continue to follow and will assist as needed with dc plans/needs. Aircraft Engine Mechanic Supervisor: Claudette Reich DCPIA - Discharge Planning Initial Assessment Updated by [email or web address]: Claudette Arceantonio on 08/02/19 5:04 pm * Is the patient Alert and Oriented? Yes * How many steps to enter\exit or inside your home? Ramp/0 * PCP Dr. Silver * Pharmacy [facility] * Preadmission Environment Home with Family * ADLs Partial Dependent * Partial ADLs (Assistance needed) Ambulation * Equipment Bedside Commode Other Rolling Walker Shower Chair Wheelchair * Other Equipment Blood Pressure machine * List name and contact numbers for known caregivers / representatives who currently or will assist patient after discharge: Reese Melgar - spouse - [phone] Myrna Wilkins - mother - [phone] * Verbal permission to speak to the caregivers and representatives has been obtained from the patient. Yes * Community resources currently utilized Home Health * Please name any agencies selected above. [facility] Spinal cord commission * Additional services required to return to the preadmission environment? Yes * Can the patient safely return to the preadmission environment? Yes * Has this patient been hospitalized within the prior 30 days at any hospital? Yes External Providers External Provider: [facility] Next Contact Date: Service Request Date: Service Type: Resolution: Reviewer: Comments: Coverage Notice Reviewer: [id number] - Claudette Reich Notice Issued Date-Time: 08/02/2019 17:09 Notice Type: Patient Choice Letter Notice Delivered To: Patient Relationship to Patient: Electric Motor Winder Name: Delivery Method: HAND - Hand Delivered Charissa Days: Prior Verbal Notification: Recipient Understood Notice: Yes Recipient Signature: Yes Med Rec Note Co-signed by Attending: Coverage Notice Comment: [facility] for [facility] first, then [facility] Last DP export: 08/02/19 4:11 p Patient Name: MADHURI MELGAR Page [id number] at 1236 All edits/amendments must be made on the electronic document DICTATION DATE: 08/03/19 1235 ENGINEERING SCIENTIST: ALFRED 08/03/19 1235 RPT#: [id number] DC DATE: STATUS: ADM IN [facility] [address] [place] [address] END OF REPORT
[2019-08-03 14:03] VITALS: BP 165/100
[2019-08-03] MEDS ORDERED: Levaquin PO (16:02)
--- NOTE | 2019-08-03 16:05 | MORECARE ---
CASE MANAGEMENT DISCHARGE SUMMARY PATIENT: MADHURI MELGAR UNIT: [id number] ADM DATE: 08/01/19 AGE: 58 : 56 SEX: F ROOM/BED: D.2232 AUTHOR: ROVERTO,DOC PHYSICIAN: REFERRING PHYSICIAN: GRIS BAKER MD DATE OF SERVICE: 08/03/19 Discharge Plan Patient Name: MADHURI MELGAR Facility: [facility]:[place] : 1960 Planned Disposition: Inpatient Rehab Anticipated Discharge Date: Discharge Date: Expected LOS: Initial Reviewer: [email or web address] Initial Review Date: 08/02/2019 Generated: 08/03/19 5:04 pm Comments DCP- Discharge Planning Updated by [email or web address]: Maria Teresa Vu on 08/03/19 2:[address] PATIENT HAS BEEN ACCEPTED TO INPATIENT REHAB AT [facility] DCP- Discharge Planning Updated by [email or web address]: Claudette Reich on 08/03/19 11:[address] Referral sent to [facility] for inpatient rehab, clinical faxed and I spoke with Mamie. CM will continue to follow and assist with discharge planning/needs. DCP- Discharge Planning Updated by [id number]: Claudette Reich on 08/02/19 4:[address] Patient Name: MADHURI MELGAR Admission Status: ER Accout number: [id number] Admission Date: 08-01-2019 : 1960 Admission Diagnosis: Attending: GRIS BAKER Current LOS: 1 Anticipated DC Date: Planned Disposition: Inpatient Rehab [place] Insurance: [place] PRIVATE OPT[place] [facility] Discharge Planning Comments: CM met with patient to complete initial dc planning assessment. CM educated patient on the CM role and verbal consent given by patient to complete assessment. Patient lives at home with her spouse. CM discussed availability of home health, rehab services, and medical equipment. Patient would like to go to [facility] inpatient rehab. She states she was there about a year ago and made good progress. I explained to her that she would need prior authorization from her insurance company and if they denied inpatient rehab, she may want to consider a SNF. I gave her the lists of inpatient rehab as well as skilled facilities and explained the differences in care, voiced understanding. I will make a referral to [facility] in the morning. CM will continue to follow and will assist as needed with dc plans/needs. Senior Windows Systems Engineer: Claudette Reich DCPIA - Discharge Planning Initial Assessment Updated by [id number]: Claudette Reich on 08/02/19 5:04 pm * Is the patient Alert and Oriented? Yes * How many steps to enter\exit or inside your home? Ramp/0 * PCP Dr. Silver * Pharmacy [facility] * Preadmission Environment Home with Family * ADLs Partial Dependent * Partial ADLs (Assistance needed) Ambulation * Equipment Bedside Commode Other Rolling Walker Shower Chair Wheelchair * Other Equipment Blood Pressure machine * List name and contact numbers for known caregivers / representatives who currently or will assist patient after discharge: Reese Melgar - spouse - [phone] Myrna Wilkins - mother - [phone] * Verbal permission to speak to the caregivers and representatives has been obtained from the patient. Yes * Community resources currently utilized Home Health * Please name any agencies selected above. [facility] Spinal cord commission * Additional services required to return to the preadmission environment? Yes * Can the patient safely return to the preadmission environment? Yes * Has this patient been hospitalized within the prior 30 days at any hospital? Yes Coverage Notice Reviewer: [id number] - Claudette Reich Notice Issued Date-Time: 08/02/2019 17:09 Notice Type: Patient Choice Letter Notice Delivered To: Patient Relationship to Patient: Background Check Coordinator Name: Delivery Method: HAND - Hand Delivered Charissa Days: Prior Verbal Notification: Recipient Understood Notice: Yes Recipient Signature: Yes Med Rec Note Co-signed by Attending: Coverage Notice Comment: [facility] for [facility] first, then [facility] Last DP export: 08/03/19 11:36 a Patient Name: MADHURI MELGAR Page [phone] at 1605 All edits/amendments must be made on the electronic document DICTATION DATE: 08/03/191603 PRODUCTION WELDING SUPERVISOR: ALFRED 08/03/191603 RPT#: [id number] DC DATE: STATUS: ADM IN [facility] [address] [place] [address] END OF REPORT
--- NOTE | 2019-08-03 17:30 | NUR ---
REPORT WAS CALLED AND GIVEN TO CHARGE NURSE ON REHAB FLOOR. PT VOICE UNDERSTANDING OF DC INSTRUCTION. AWAITING AMBULANCE FOR TRANSPORT. FAMILY AND C/L IN REACH AT BEDSIDE.
[2019-08-03 17:33] VITALS: BP 161/99
--- NOTE | 2019-08-06 13:56 | MORECARE ---
CASE MANAGEMENT DISCHARGE SUMMARY PATIENT: MADHURI MELGAR UNIT: [id number] ADM DATE: 08/01/19 AGE: 58 : 56 SEX: F ROOM/BED: D.2232 AUTHOR: ROVERTODOC PHYSICIAN: REFERRING PHYSICIAN: GRIS BAKER MD DATE OF SERVICE: 08/06/19 Discharge Plan Patient Name: MADHURI MELGAR Facility: [facility]:[place] : 1960 Planned Disposition: Inpatient Rehab Anticipated Discharge Date: Discharge Date: 08/03/2019 Expected LOS: Initial Reviewer: [email or web address] Initial Review Date: 08/02/2019 Generated: 08/06/19 2:55 pm Comments DCP- Discharge Planning Updated by [email or web address]: Maria Teresa Vu on 08/03/19 2:[address] PATIENT HAS BEEN ACCEPTED TO INPATIENT REHAB AT DCP- Discharge Planning Updated by [id number]: Claudette Reich on 08/03/19 11:[address] Referral sent to [facility] for inpatient rehab, clinical faxed and I spoke with Mamie. CM will continue to follow and assist with discharge planning/needs. DCP- Discharge Planning Updated by [id number]: Claudette Reich on 08/02/19 4:[address] Patient Name: MADHURI MELGAR Admission Status: ER Accout number: [id number] Admission Date: 08-01-2019 : 1960 Admission Diagnosis: Attending: GRIS BAKER Current LOS: 1 Anticipated DC Date: Planned Disposition: Inpatient Rehab Primary Insurance: [place] PRIVATE OPTIONS [facility] Discharge Planning Comments: CM met with patient to complete initial dc planning assessment. CM educated patient on the CM role and verbal consent given by patient to complete assessment. Patient lives at home with her spouse. CM discussed availability of home health, rehab services, and medical equipment. Patient would like to go to [facility] inpatient rehab. She states she was there about a year ago and made good progress. I explained to her that she would need prior authorization from her insurance company and if they denied inpatient rehab, she may want to consider a SNF. I gave her the lists of inpatient rehab as well as skilled facilities and explained the differences in care, voiced understanding. I will make a referral to [facility] in the morning. CM will continue to follow and will assist as needed with dc plans/needs. Cost Recovery Technician: Claudette Reich DCPIA - Discharge Planning Initial Assessment Updated by [id number]: Claudette Reich on 08/02/19 5:04 pm * Is the patient Alert and Oriented? Yes * How many steps to enter\exit or inside your home? Ramp/0 * PCP Dr. Silver * Pharmacy [facility] * Preadmission Environment Home with Family * ADLs Partial Dependent * Partial ADLs (Assistance needed) Ambulation * Equipment Bedside Commode Other Rolling Walker Shower Chair Wheelchair * Other Equipment Blood Pressure machine * List name and contact numbers for known caregivers / representatives who currently or will assist patient after discharge: Reese Melgar - spouse - [phone] Myrna Wilkins - mother - [phone] * Verbal permission to speak to the caregivers and representatives has been obtained from the patient. Yes * Community resources currently utilized Home Health * Please name any agencies selected above. [facility] Spinal cord commission * Additional services required to return to the preadmission environment? Yes * Can the patient safely return to the preadmission environment? Yes * Has this patient been hospitalized within the prior 30 days at any hospital? Yes Coverage Notice Reviewer: [id number] - Claudette Reich Notice Issued Date-Time: 08/02/2019 17:09 Notice Type: Patient Choice Letter Notice Delivered To: Patient Relationship to Patient: Med Dir Name: Delivery Method: HAND - Hand Delivered Charissa Days: Prior Verbal Notification: Recipient Understood Notice: Yes Recipient Signature: Yes Med Rec Note Co-signed by Attending: Coverage Notice Comment: [facility] for [facility] first, then [facility] Last DP export: 08/03/19 3:05 p Patient Name: MADHURI MELGAR Page [phone] at 1356 All edits/amendments must be made on the electronic document DICTATION DATE: 08/06/19 1359 SLEEPING BAG FILLER: ALFRED 08/06/19 1357 RPT#: [id number] DC DATE:08/03/19 STATUS: DIS IN [facility] [address] [place] [address] END OF REPORT
== END 2019-08-03 19:04 | DRG 689 ==
LOC: D.ER 21:14 → D.MS 08-01 00:10
PROVIDERS: Family Medicine; ADMIT Internal Medicine Nephrology; ATTEND Internal Medicine Nephrology
DX: N39.0 Urinary tract infection, site not specified (principal); E43 Unspecified severe protein-calorie malnutrition; C64.9 Malignant neoplasm of unspecified kidney, except renal pelvis; C78.7 Secondary malignant neoplasm of liver and intrahepatic bile duct; C79.51 Secondary malignant neoplasm of bone; R10.11 Right upper quadrant pain; K80.20 Calculus of gallbladder without cholecystitis without obstruction; E27.9 Disorder of adrenal gland, unspecified; E87.6 Hypokalemia; K82.8 Other specified diseases of gallbladder; I10 Essential (primary) hypertension; K21.9 Gastro-esophageal reflux disease without esophagitis; G89.29 Other chronic pain; B95.1 Streptococcus, group B, as the cause of diseases classified elsewhere; B96.20 Unspecified Escherichia coli [E. coli] as the cause of diseases classified elsewhere

== ENCOUNTER 2019-08-30 13:17 | Emergency (ER) | payer MEDICAID ==
[~2019-08-30] VITALS: Ht 162.6 cm; Wt 86.4 kg
[~2019-08-30 13:17] MED LIST changes: +Levaquin PO
[2019-08-30 13:19] VITALS: Ht 162.6 cm; Wt 86.4 kg
[2019-08-30] MEDS ORDERED: DILAUDID4 MG PO (14:47)
[2019-08-30 15:28] VITALS: BP 126/74
== END 2019-08-30 15:28 | disposition home or self-care (01) ==
LOC: D.ER 13:17
DX: R10.2 Pelvic and perineal pain (principal); I10 Essential (primary) hypertension; E07.9 Disorder of thyroid, unspecified

== ENCOUNTER 2019-09-06 11:16 | Inpatient (IN) | payer MEDICAID ==
[2019-09-06] VITALS (12 sets, daily range): BP systolic 98–136; BP diastolic 58–75
[~2019-09-06] VITALS: Ht 162.6 cm; Wt 104.5 kg
--- NOTE | 2019-09-06 | NUR ---
MEPILEX PLACED ON PTS SACRUM OVER THE EXCORIATED AND REDDENED AREA. ALSO DID A PARTIAL LINEN CHANGE. LINENS WERE SOILED WITH URINE. PT DENIES NEEDS AT THIS TIME. BED LOW AND CALL LIGHT WITHIN REACH.
[~2019-09-06 11:16] MED LIST changes: +DILAUDID4 MG PO
[2019-09-06 11:46] LABS: BASOPHILS 0.4 % (0-2); EOSINOPHILS 0.4 % (0-7); HEMATOCRIT 51.3 % (36.0-48.0); HEMOGLOBIN 16.7 g/dL (12-16); IMMATURE GRANULOCYTES 0.5 % (0-5); LYMPHOCYTES 31.5 % (15-50); MCH 25.8 pg (26.0-34.0); MCHC 32.6 g/dL (31.0-37.0); MCV 79.2 fL (80.0-100.0); MEAN PLATELET VOLUME 8.9 fL (7.4-10.4); MONOCYTES 9.6 % (2-11); NEUTROPHILS 57.6 % (40-80); RBC 6.48 10x6/uL (4.00-5.40); RDW 19.5 % (11.5-14.5); WBC 13.3 10x3/uL (4.8-10.8)
[2019-09-06 12:02] LABS: CALC OSMOLALITY 268 mosm/kg (275-300); CALCIUM 9.3 mg/dL (8.5-10.1); CARBON DIOXIDE 23.6 mmol/L (21.0-32.0); CHLORIDE - SERUM 89 mmol/L (98-107); CREATININE - SERUM 1.9 mg/dL (0.6-1.3); GLUCOSE 115 mg/dL (74-106); POTASSIUM - SERUM 4.3 mmol/L (3.5-5.1); SODIUM 130 mmol/L (136-145); UREA NITROGEN 31 mg/dL (7-18); eGFR NON AFRICAN AMERICAN 28 mL/min (90-120)
[2019-09-06 12:05] LABS: PLATELET COUNT 403 10x3/uL (130-400)
[2019-09-06 12:20] LABS: ALBUMIN 2.7 g/dL (3.4-5.0); ALKALINE PHOSPHATASE 116 U/L (46-116); ALT (SGPT) 22 U/L (10-68); BILIRUBIN - TOTAL 0.67 mg/dL (0.2-1.3); C-REACTIVE PROTEIN 9.5 mg/dL (0.0-0.9); CKMB 4.4 U/L (0.0-3.6); CREATINE KINASE 39 UL (21-215); MAGNESIUM - SERUM 2.3 mg/dL (1.8-2.4); PRO BNP 1670 pg/mL (0-125); PROTEIN - SERUM 8.5 g/dL (6.4-8.2); T4 THYROXIN - FREE 1.59 ng/dL (0.76-1.46); THYROID STIMULATING HORMONE 16.65 uIU/mL (0.36-3.74); TROPONIN-I < 0.017 ng/mL (0.000-0.060)
[2019-09-06 14:27] LABS: APPEARANCE CLOUDY (CLEAR); BACTERIA MANY /hpf (NEGATIVE); BILIRUBIN NEGATIVE (NEGATIVE); COLOR YELLOW (YELLOW); EPITHELIAL CELLS 0-5 /hpf (0-5); GLUCOSE NEGATIVE (NEGATIVE); KETONE SMALL mg/dL (NEGATIVE); MUCUS <1+ /lpf (NONE SEEN); NITRITE NEGATIVE (NEGATIVE); PROTEIN TRACE mg/dL (NEGATIVE); SPECIFIC GRAVITY 1.025 (1.005-1.020); UROBILINOGEN NORMAL (NORMAL)
[2019-09-06] MEDS ORDERED: DILAUDID4 MG PO (19:37)
[2019-09-06] MEDS ORDERED: OXYCONTIN40 MG PO (19:40)
[2019-09-06] MEDS ORDERED: ZOFRAN8 MG PO (19:42)
[2019-09-06] MEDS ORDERED: XYLOCAINE HCL 2%5 ML UR (19:44)
[2019-09-06 20:03] LABS: APTT 85.7 SECONDS (22.8-39.4)
[2019-09-06 20:06] LABS: INR 7.1 (0.85-1.17); PROTIME 59.4 SECONDS (11.6-15.0)
--- NOTE | 2019-09-06 22:00 | NUR ---
PT WITH CRITICAL PT OF 59.4 AND INR 7.10. NOTIFIED [facility] WHO HAD ME NOTIFY DR. WALDROP. SPOKE WITH DR. WALDROP. GAVE HER RESULTS AND NO NEW ORDERS GIVEN.
[2019-09-07 01:02] VITALS: BP 112/67; BMI 39.5
[2019-09-07 04:00] VITALS: BP 109/67
[2019-09-07 04:32] LABS: BASOPHILS 0.2 % (0-2); EOSINOPHILS 0.8 % (0-7); IMMATURE GRANULOCYTES 0.6 % (0-5); LYMPHOCYTES 16.1 % (15-50); MCH 25.3 pg (26.0-34.0); MCHC 31.6 g/dL (31.0-37.0); MCV 79.9 fL (80.0-100.0); MEAN PLATELET VOLUME 8.7 fL (7.4-10.4); MONOCYTES 11.7 % (2-11); NEUTROPHILS 70.6 % (40-80); RDW 19.4 % (11.5-14.5)
[2019-09-07 04:39] LABS: HEMATOCRIT 38.6 % (36.0-48.0); HEMOGLOBIN 12.2 g/dL (12-16); PLATELET COUNT 275 10x3/uL (130-400); RBC 4.83 10x6/uL (4.00-5.40); WBC 8.4 10x3/uL (4.8-10.8)
[2019-09-07 04:46] LABS: BILIRUBIN - TOTAL 0.46 mg/dL (0.2-1.3); CALCIUM 7.7 mg/dL (8.5-10.1); CARBON DIOXIDE 23.9 mmol/L (21.0-32.0)
[2019-09-07 04:51] LABS: ANION GAP 14.6 mmol/L (8-16); CREATININE - SERUM 1.2 mg/dL (0.6-1.3); POTASSIUM - SERUM 3.5 mmol/L (3.5-5.1); PROTEIN - SERUM 6.2 g/dL (6.4-8.2)
--- NOTE | 2019-09-07 07:10 | NUR ---
REPORT RECEIVED FROM [facility] AND PATIENT CARE ASSUMED. PATIENT LAYING IN BED ON BACK WITH EYES CLOSED AND BREATHING EVENLY. PATIENT IS STABLE AND VSS. PATIENT DENIES ANY NEEDS OR PAIN. WILL CONTINUE TO MONITOR. SR UPX 2 BED IN LOW POSITION AND CALL LIGHT IN REACH.
--- NOTE | 2019-09-07 11:45 | NUR ---
PATIENT CONPLAINS ACUTE GENRALIZED PAIN. MEDICATED WITH MORPHINE 2 MG PER MAR. PATIENT TOLERATED WELL. VSS. WILL CONTINUE TO MONITOR. SR UP X 2 BED IN LOW POSITION AND CALL LIGHT IN REACH.
[2019-09-07 12:09] VITALS: Ht 162.6 cm; Wt 104.5 kg
--- NOTE | 2019-09-07 12:17 | NUR ---
PATIENT LAYING IN BED WITH EYES CLOSED AND BREATHING EVENLY. EYES ARE CLOSED WITH EVEN RESPIRATIONS. VSS. PATIENT AROUSES EASILY TO VOICE. WILL CONTINUE TO MONITOR. SR UP X 2 BED IN LOW POSITION AND CALL LIGHT IN REACH.
[2019-09-07 13:18] VITALS: BP 109/71
--- NOTE | 2019-09-07 14:00 | MORECARE ---
CASE MANAGEMENT DISCHARGE SUMMARY PATIENT: MADHURI MARLEY UNIT: [id number] ADM DATE: 09/06/19 AGE: 58 : 56 SEX: F ROOM/BED: D.2104 AUTHOR: LINDA LAYNE PHYSICIAN: REFERRING PHYSICIAN: LISA GARG MD DATE OF SERVICE: 09/07/19 Discharge Plan Patient Name: MADHURI MARLEY Facility: [facility]:[place] : 1960 Planned Disposition: Acute Care Hospital Anticipated Discharge Date: 09/07/19 Discharge Date: Expected LOS: 1 Initial Reviewer: [email or web address] Initial Review Date: 09/07/2019 Generated: 09/07/19 2:59 pm DCPIA - Discharge Planning Initial Assessment Updated by [email or web address]: Eliazar Woodruff on 09/07/19 1:52 pm * Is the patient Alert and Oriented? Yes * How many steps to enter\exit or inside your home? RAMP * PCP DR. FONTANA * Pharmacy [facility] * Preadmission Environment Home with Family * ADLs Partial Dependent * Partial ADLs (Assistance needed) Ambulation Bathing * Equipment Bedside Commode Other Rolling Walker Shower Chair Wheelchair * Other Equipment BLOOD PRESSURE MONITOR NO MEDICAL EQUIPMENT PROVIDER PREFERENCE * List name and contact numbers for known caregivers / representatives who currently or will assist patient after discharge: BRITNI ARAGON, MOTHER [place]RA[place], * Verbal permission to speak to the caregivers and representatives has been obtained from the patient. Yes * Community resources currently utilized None * Please name any agencies selected above. NONE * Additional services required to return to the preadmission environment? Yes * Can the patient safely return to the preadmission environment? Yes * Has this patient been hospitalized within the prior 30 days at any hospital? No External Providers External Provider: [facility] Next Contact Date: 09/07/2019 Service Request Date: Service Type: Resolution: Reviewer: Comments: Patient Name: MADHURI MARLEY Page 13277 at 1400 All edits/amendments must be made on the electronic document DICTATION DATE: 09/07/19 1359 ELECTRICAL ENGINEERING MANAGER: DM 09/07/19 1359 RPT#: [id number] DC DATE: STATUS: ADM IN [facility] [address] [place] [address] END OF REPORT
--- NOTE | 2019-09-07 14:08 | MORECARE ---
CASE MANAGEMENT DISCHARGE SUMMARY PATIENT: MADHURI MARLEY UNIT: [id number] ADM DATE: 09/06/19 AGE: 58 : 56 SEX: F ROOM/BED: D.2102 AUTHOR: ROVERTO,DOC PHYSICIAN: REFERRING PHYSICIAN: LISA GARG MD DATE OF SERVICE: 09/07/19 Discharge Plan Patient Name: MADHURI MARLEY Facility: [facility]:[place] : 1960 Planned Disposition: Acute Care Hospital Anticipated Discharge Date: 09/07/19 Discharge Date: Expected LOS: 1 Initial Reviewer: [email or web address] Initial Review Date: 09/07/2019 Generated: 09/07/19 3:08 pm DCP- Discharge Planning Updated by [email or web address]: Eliazar Woodruff on 09/07/19 1:[address] Patient Name: MADHURI MARLEY Encounter No: [id number] : 1960 [place] Insurance[place] PRIVATE OPT[place] Anticipated DC Date: 09-07-2019 Planned Disposition: Acute Care Hospital External Planned Provider: [facility] DCP follow-up note: CM RECEIVED HOSPITAL TRANSFER ORDER. CM MET WITH PT IN ROOM TO DISCUSS DISCHARGE PLANNING AND NEEDS. PT REPORTS LIVING AT HOME INDEPENDENTLY WITH HER SPOUSE. PT HAS BEDSIDE COMMODE, BLOOD PRESSURE MONITOR, ROLLING WALKER, SHOWER CHAIR AND WHEELCHAIR WITH NO MEDICAL EQUIPMENT PROVIDER PREFERENCE. PT HAS NO OUTSIDE SERVICES ASSISTING IN THE HOME. CM DISCUSSED AVAILABILITY OF HOME HEALTH, REHAB SERVICES AND MEDICAL EQUIPMENT. PT HAS TALKED TO THE DOCTOR ABOUT TRANSFER TO [facility] AND REPORTS SHE IS IN AGREEMENT. PT'S FAMILY IS AWARE. CM CALLED TRANSFER CENTER, , PROVIDED [facility]FERRAL TO [facility]. CM FAXED FACE SHEET TO TRANSFER CENTER AT [phone]. TIM Gomez DCPIA - Discharge Planning Initial Assessment Updated by [id number]: Eliazar Woodruff on 09/07/19 1:52 pm * Is the patient Alert and Oriented? Yes * How many steps to enter\exit or inside your home? RAMP * PCP DR. FONTANA * Pharmacy [facility] * Preadmission Environment Home with Family * ADLs Partial Dependent * Partial ADLs (Assistance needed) Ambulation Bathing * Equipment Bedside Commode Other Rolling Walker Shower Chair Wheelchair * Other Equipment BLOOD PRESSURE MONITOR NO MEDICAL EQUIPMENT PROVIDER PREFERENCE * List name and contact numbers for known caregivers / representatives who currently or will assist patient after discharge: BRITNI ARAGON, MOTHER ISRAEL, * Verbal permission to speak to the caregivers and representatives has been obtained from the patient. Yes * Community resources currently utilized None * Please name any agencies selected above. NONE * Additional services required to return to the preadmission environment? Yes * Can the patient safely return to the preadmission environment? Yes * Has this patient been hospitalized within the prior 30 days at any hospital? No Last DP export: 09/07/19 1:00 p Patient Name: MADHURI MARLEY Page 34917 at 1408 All edits/amendments must be made on the electronic document DICTATION DATE: 09/07/191406 DIRECTOR PART: ALFRED 09/07/191406 RPT#: [id number] DC DATE: STATUS: ADM IN [facility] [address] [place] [address] END OF REPORT
[2019-09-07 17:14] VITALS: BP 109/77
[2019-09-07 20:00] VITALS: BP 121/84
[2019-09-08] VITALS: BP 122/86
--- NOTE | 2019-09-08 03:45 | NUR ---
PT C/O PAIN 10 TO HER UPPER AND LOWER BACK. SHE IS NOT DUE FOR PAIN MEDS UNTIL 0430. OKAY PER ESTEPHNAIE MENDOZA TO GIVE THE DILAUDID EARLY AT THIS TIME.
[2019-09-08 04:00] VITALS: BP 110/71
[2019-09-08 05:19] LABS: BASOPHILS 0.3 % (0-2); EOSINOPHILS 3.1 % (0-7); HEMATOCRIT 38.3 % (36.0-48.0); IMMATURE GRANULOCYTES 0.5 % (0-5); LYMPHOCYTES 21.2 % (15-50); MCH 25.3 pg (26.0-34.0); MCHC 31.3 g/dL (31.0-37.0); MCV 80.6 fL (80.0-100.0); MEAN PLATELET VOLUME 8.5 fL (7.4-10.4); MONOCYTES 9.8 % (2-11); NEUTROPHILS 65.1 % (40-80); PLATELET COUNT 237 10x3/uL (130-400); RBC 4.75 10x6/uL (4.00-5.40); RDW 19.6 % (11.5-14.5); WBC 7.3 10x3/uL (4.8-10.8)
[2019-09-08 05:41] LABS: ANION GAP 11.7 mmol/L (8-16); BILIRUBIN - TOTAL 0.51 mg/dL (0.2-1.3); CALCIUM 8.6 mg/dL (8.5-10.1); CARBON DIOXIDE 27.1 mmol/L (21.0-32.0); POTASSIUM - SERUM 3.8 mmol/L (3.5-5.1); PROTEIN - SERUM 6.3 g/dL (6.4-8.2)
--- NOTE | 2019-09-08 07:22 | NUR ---
REPORT RECIEVED FROM ROOFING SUBCONTRACTOR AND PATIENT CARE ASUMED. PATIENT LAYING IN BED ON BACK WITH EYES CLOSED AND BREATHIGN EVENLY. WILL CONTINUE TO MONITOR. SR UPX 2 BED IN LOW POSITION AND CALL LIGHT IN REACH.
--- NOTE | 2019-09-08 08:30 | NUR ---
BETSEY FROM TRANSFER CENTER CALLED. STATES THAT PATIENT HAS BEEN ACCEPTED TO [facility] . STATES SHE WILL CONTACT WHEN SHE HAS FURTHER INFORMATION.
[2019-09-08 09:02] VITALS: BP 97/55
--- NOTE | 2019-09-08 11:13 | NUR ---
PATIENT RESTING QUIETLY. AT BS. WILL CONTINUE TO MONITOR. SR UP X 2 BED IN LOW POSTION AND CALL LIGHT IN REACH.
[2019-09-08 11:48] LABS: INR 3.52 (0.85-1.17); PROTIME 34.7 SECONDS (11.6-15.0)
[2019-09-08 13:00] VITALS: BP 103/71
--- NOTE | 2019-09-08 15:42 | NUR ---
PATIENT HAS BEEN ACCEPTED TO [facility]. CALLED REPORT TO MARIO CARRILLO RN. PATIENT IS STABLE AND VSS. PATIENT TO AMBULANCE VIA STRETCHER AND AMBULANCE PERSONNEL.
--- NOTE | 2019-09-09 12:01 | MORECARE ---
CASE MANAGEMENT DISCHARGE SUMMARY PATIENT: MADHURI MARLEY UNIT: [id number] ADM DATE: 09/06/19 AGE: 58 : 56 SEX: F ROOM/BED: D.9809 AUTHOR: ROVERTO,DOC PHYSICIAN: REFERRING PHYSICIAN: LISA GARG MD DATE OF SERVICE: 09/09/19 Discharge Plan Patient Name: MADHURI MARLEY Facility: [facility]:[place] : 1960 Planned Disposition: Acute Care Hospital Anticipated Discharge Date: 09/07/19 Discharge Date: 09/08/2019 Expected LOS: 1 Initial Reviewer: SANTIAGO Initial Review Date: 09/07/2019 Generated: 09/09/19 1:00 pm DCP- Discharge Planning Updated by SANTIAGO: Eliazar Woodruff on 09/07/19 1:[address] Patient Name: MADHURI MARLEY Encounter No: [id number] : 1960 Primary Insurance: [place] PRIVATE OPTIONS NA Anticipated DC Date: 09-07-2019 Planned Disposition: Acute Care Hospital External Planned Provider: [facility] DCP follow-up note: CM RECEIVED HOSPITAL TRANSFER ORDER. CM MET WITH PT IN ROOM TO DISCUSS DISCHARGE PLANNING AND NEEDS. PT REPORTS LIVING AT HOME INDEPENDENTLY WITH HER SPOUSE. PT HAS BEDSIDE COMMODE, BLOOD PRESSURE MONITOR, ROLLING WALKER, SHOWER CHAIR AND WHEELCHAIR WITH NO MEDICAL EQUIPMENT PROVIDER PREFERENCE. PT HAS NO OUTSIDE SERVICES ASSISTING IN THE HOME. CM DISCUSSED AVAILABILITY OF HOME HEALTH, REHAB SERVICES AND MEDICAL EQUIPMENT. PT HAS TALKED TO THE DOCTOR ABOUT TRANSFER TO [facility] AND REPORTS SHE IS IN AGREEMENT. PT'S FAMILY IS AWARE. CM CALLED TRANSFER CENTER, , PROVIDED REFERRAL TO [facility]. CM FAXED FACE SHEET TO TRANSFER CENTER AT [phone]. Eliazar Woodruff CASE MANAGEMENT DCPIA - Discharge Planning Initial Assessment Updated by [email or web address]: Eliazar Woodruff on 09/07/19 1:52 pm * Is the patient Alert and Oriented? Yes * How many steps to enter\exit or inside your home? RAMP * PCP DR. FONTANA * Pharmacy [facility] * Preadmission Environment Home with Family * ADLs Partial Dependent * Partial ADLs (Assistance needed) Ambulation Bathing * Equipment Bedside Commode Other Rolling Walker Shower Chair Wheelchair * Other Equipment BLOOD PRESSURE MONITOR NO MEDICAL EQUIPMENT PROVIDER PREFERENCE * List name and contact numbers for known caregivers / representatives who currently or will assist patient after discharge: BRITNI ARAGON, MOTHER ISRAEL, * Verbal permission to speak to the caregivers and representatives has been obtained from the patient. Yes * Community resources currently utilized None * Please name any agencies selected above. NONE * Additional services required to return to the preadmission environment? Yes * Can the patient safely return to the preadmission environment? Yes * Has this patient been hospitalized within the prior 30 days at any hospital? No Last DP export: 09/07/19 1:08 p Patient Name: MADHURI MARLEY Page [id number] at 1201 All edits/amendments must be made on the electronic document DICTATION DATE: 09/09/19 1200 TAFE TEACHER: ALFRED 09/09/19 1200 RPT#: [id number] DC DATE:09/08/19 STATUS: DIS IN [facility] [address] [place] [address] END OF REPORT
== END 2019-09-08 15:44 | disposition short-term general hospital (02) | DRG 871 ==
LOC: D.ER 11:16 → D.M2 16:53
PROVIDERS: Family Medicine; ADMIT Family Medicine; ATTEND Family Medicine
DX: A41.9 Sepsis, unspecified organism (principal); E43 Unspecified severe protein-calorie malnutrition; N39.0 Urinary tract infection, site not specified; C64.9 Malignant neoplasm of unspecified kidney, except renal pelvis; C78.7 Secondary malignant neoplasm of liver and intrahepatic bile duct; C79.51 Secondary malignant neoplasm of bone; E87.1 Hypo-osmolality and hyponatremia; N17.9 Acute kidney failure, unspecified; K80.20 Calculus of gallbladder without cholecystitis without obstruction; I10 Essential (primary) hypertension; K21.9 Gastro-esophageal reflux disease without esophagitis; Z68.30 Body mass index [BMI] 30.0-30.9, adult; E03.9 Hypothyroidism, unspecified; D75.1 Secondary polycythemia; M79.9 Soft tissue disorder, unspecified